=== PATIENT | male | born 1945 | race Caucasian/White ===

== ENCOUNTER 2018-02-03 16:16 | Emergency (ER) | payer MEDICARE ==
[~2018-02-03] VITALS: Ht 190.5 cm; Wt 116.0 kg
[~2018-02-03 16:16] MED LIST: AMLODIPINE10 MG PO; BABY ASPIRIN81 MG PO; CIPRO XR500 MG PO; FISH OIL300 MG OR; HYDROCHLOROT12.5 M1 PO; LANTUS SC; LISINOPRIL10 MG PO; METFORMIN500 MG PO; MULIT-VITAMI OR; MULTIVITAMI1 OR; NOVOLOG MIX100 U/ML SC; SIMVASTATIN5 MG PO; VITAMIN B 650 MG OR; VITAMIN B-121000 MCG SC
[2018-02-03] MEDS ORDERED: DOXYCYC MONO100 M2 PO (16:55)
[2018-02-03] MEDS ORDERED: REGLAN10 MG PO (16:55)
[2018-02-03 17:00] VITALS: BP 119/96
[2018-02-03] MEDS ORDERED: PROTONIX40 MG PO (17:47)
== END 2018-02-03 17:00 | disposition home or self-care (01) ==
LOC: ED 16:16
DX: R06.6 Hiccough (principal); H60.12 Cellulitis of left external ear

== ENCOUNTER 2018-02-06 14:26 | Inpatient (IN) | payer MEDICARE ==
[~2018-02-06] VITALS: Ht 190.5 cm; Wt 113.2 kg
[~2018-02-06 14:26] MED LIST changes: +DOXYCYC MONO100 M2 PO; +PROTONIX40 MG PO; +REGLAN10 MG PO
--- NOTE | 2018-02-06 14:30 | NUR ---
PT IMMEDIATELY WHEELED TO TX AREA D/T CP AND SOB
[2018-02-06] MEDS ORDERED: SIMVASTATIN10 MG PO ×2 (14:47→14:49)
[2018-02-06] MEDS ORDERED: LANTUS100 UNIT/M SC (14:48)
[2018-02-06] MEDS ORDERED: METFORMIN500 MG PO (14:50)
[2018-02-06] MEDS ORDERED: LISINOPRIL20 MG PO (14:50)
[2018-02-06] MEDS ORDERED: BYDUREON2 MG SC (14:52)
[2018-02-06 15:02] LABS: HEMATOCRIT 42.6 % (39.0-50.0); HEMOGLOBIN 14.4 g/dl (14.0-18.0); IMMATURE GRANULOCYTES 0.5 % (0.0-5.0); MEAN CORPUSCULAR HGB CONC 33.8 g/L CALC (32.0-36.0); NEUT# 12.11 thou/uL (1.82-7.42); RED BLOOD COUNT 4.8 mill/uL (4.70-6.10); RED CELL DISTRI WIDTH 12.8 % (11.5-15.5)
[2018-02-06 15:04] LABS: MEAN CELL VOLUME 88.8 fL CALC (80.0-100.0)
[2018-02-06 15:14] LABS: ALKALINE PHOSPHATASE 126 u/l (38-126); BILIRUBIN, TOTAL 0.8 mg/dL (0.0-1.4); BUN 27 mg/dL (8-23); BUN/CREATININE RATIO 35 (12-20 (CALC)); CARBON DIOXIDE 23 mmol/l (22-30); CHLORIDE 97 mmol/l (95-108); CREATININE 0.8 mg/dL (0.7-1.3); GFR > 60 ML/MIN (>=60 (CALC)); GFR FOR AFR.AMER. > 60 ML/MIN (>=60 (CALC)); SGPT/ALT 63 u/l (11-66); SODIUM 135 mmol/l (137-146); TOTAL PROTEIN 7.2 g/dL (6.3-8.2)
[2018-02-06 15:15] LABS: ANION GAP 20 (6-22 (CALC)); POTASSIUM 4.6 mmol/l (3.5-5.1); SGOT/AST 25 u/l (19-48)
--- NOTE | 2018-02-06 15:21 | NUR ---
WC TO BATHROOM. PT AMB IN WITH STEADY GAIT TO GIVE URINE SAMPLE. NO OVERT SIGNS OF SOB
[2018-02-06 15:23] LABS: MYOGLOBIN 38 ng/mL (0 - 121)
--- NOTE | 2018-02-06 15:40 | NUR ---
PT UPDATED ON FINDINGS, STATES THAT HE FEELS PRESSURE TO LEFT UPPER CHEST.
[2018-02-06 15:46] LABS: URINE BILIRUBIN - DIPSTICK NEGATIVE (NEGATIVE); URINE BLOOD DIPSTICK NEGATIVE (NEGATIVE); URINE COLOR YELLOW; URINE GLUCOSE - DIPSTICK 500 mg/dL (NEGATIVE); URINE KETONE TRACE mg/dL (NEGATIVE); URINE LEUK ESTERASE NEGATIVE (NEGATIVE); URINE NITRITE - DIPSTICK NEGATIVE (Negative); URINE PH 5.5 (4.5-8.0); URINE PROTEIN - DIPSTICK TRACE mg/dL (NEG-TRACE); URINE SPECIFIC GRAVITY >=1.030; URINE UROBILINOGEN - DIPSTICK 0.2 E.U./dL (0.2)
[2018-02-06 15:51] LABS: URINE CLARITY CLEAR
--- NOTE | 2018-02-06 17:14 | NUR ---
PT AWARE OF PLAN TO TRANSPORT TO [facility] FOR CT SCAN. LEFT FOOT HEEL UNDRESSED AND REWRAPPED, HEALING WOUND WHICH HE SOAKS DAILY.
--- NOTE | 2018-02-06 18:02 | NUR ---
MEAL TRAY PROVIDED.
--- NOTE | 2018-02-06 19:12 | NUR ---
PT CONTINUES TO WAIT FOR TRANSPORT TO [facility]. AND GRANDDAUGHTER HAVE BEEN AT BEDSIDE, NOW GONE. NO DISTRESS, NO COMPLAINTS.
--- NOTE | 2018-02-06 20:00 | NUR ---
PT LEAVES FOR [facility] AT THIS TIME FOR CTA.
--- NOTE | 2018-02-06 22:00 | NUR ---
TOOK OVER PT CARE. PT STILL NOT BACK FROM [facility].
--- NOTE | 2018-02-06 23:30 | NUR ---
PT BACK FROM [facility] PT PREFERS NOT TO STAY IN THE HOSPITAL. DR WOODS INFORMED.
--- NOTE | 2018-02-07 00:10 | NUR ---
PT AGREED TO ADMIT. CALLED TO GIVE REPORT, CARL WILL CALL BACK SHE JUST GOT AN ADMIT.
[2018-02-07 01:05] VITALS: BP 148/69
--- NOTE | 2018-02-07 01:05 | NUR ---
PT ARRIVED TO FLOOR VIA WHEELCHAIR WITH ER NURSE. PT AMBULATED TO SCALE, THEN TO BED. VITALS OBTAINED BY COURTESY DRIVER. PT ORIENTED TO ROOM AND CALL LIGHT SYSTEM. PT DENIES PAIN. RESP EVEN AND UNLABORED. LUNGS CLEAR BILAT. TELE ON. ABD SOFT, ACTIVE BOWEL SOUNDS. PT REPORTS LAST BM WAS 02/06/18. PEDAL PULSES PALPATED BILAT. PT REPORTS HAVING A DIABETIC ULCER ON HEEL OF LEFT FOOT. PT ALSO REPORTS THAT ER HAD PUT A DRESSING ON EARLIER TODAY. DRESSING REMOVED TO OBTAIN PICTURE. TELFA HAD SMALL AMOUNT OF SEROUS DRAINAGE ON IT. ULCER CLEANED WITH NS. NEW TELFA, GAUZE WRAP, AND ANUJA WRAP APPLIED. PT REQUESTED TO WEAR SOCKS FROM HOME. PT REPORTS SEEING A HADOOP INFRASTRUCTURE ARCHITECT. IV RAC PATENT; NO REDNESS OR EDEMA NOTED. PT ENCOURAGED TO CALL FOR ASSISTANCE TO AMBULATE. FREQUENT ROUNDS MADE. CALL LIGHT WITHIN REACH.
--- NOTE | 2018-02-07 01:05 | NUR ---
Admission Note Report Given to: CHRIS HENRY Transported by: X Wheelchair Stretcher Transported with: X Nurse Transporter X Patent IV O2 X Histology Technician
--- NOTE | 2018-02-07 04:40 | NUR ---
PT SLEEPING WITH EYES CLOSED. RESP EVEN AND UNLABORED. NO DISTRESS NOTED. TELE ON. ASSESSMENT UNCHANGED. CALL LIGHT WITHIN REACH.
[2018-02-07 05:43] VITALS: BP 120/55
[2018-02-07 06:23] LABS: MEAN CELL VOLUME 89.2 fL CALC (80.0-100.0); MEAN CORPUSCULAR HGB 30.1 pG CALC (26.0-32.0); MEAN CORPUSCULAR HGB CONC 33.7 g/L CALC (32.0-36.0); RED BLOOD COUNT 4.09 mill/uL (4.70-6.10); RED CELL DISTRI WIDTH 12.9 % (11.5-15.5)
[2018-02-07 06:25] LABS: HEMATOCRIT 36.5 % (39.0-50.0); HEMOGLOBIN 12.3 g/dl (14.0-18.0)
[2018-02-07 06:45] LABS: ANION GAP 12 (6-22 (CALC)); BUN 14 mg/dL (8-23); BUN/CREATININE RATIO 29 (12-20 (CALC)); CALCULATED LDLCHOLESTEROL 49 mg/dL (62-129 (CALC)); CARBON DIOXIDE 25 mmol/l (22-30); CHLORIDE 107 mmol/l (95-108); CHOLESTEROL HDL RATIO 2.8 (<4.4 (CALC)); CREATININE 0.5 mg/dL (0.7-1.3); GFR > 60 ML/MIN (>=60 (CALC)); GFR FOR AFR.AMER. > 60 ML/MIN (>=60 (CALC)); HDL CHOLESTEROL 35 mg/dL (>=40); POTASSIUM 3.8 mmol/l (3.5-5.1); SODIUM 140 mmol/l (137-146); TOTAL CHOLESTEROL 98 mg/dl (0-199); TOTAL TRIGLYCERIDES 68 mg/dl (30-149); VLDL CHOLESTROL 14 mg/dl (0-38 (CALC))
--- NOTE | 2018-02-07 07:01 | NUR ---
BEDSIDE REPORT RECEIVED BY ALISE. PT IS RESTING IN BED WITH NO S/S OF DISTRESS NOTED. PT DENIES NEEDS AT THIS TIME. CALL LIGHT IN REACH.
[2018-02-07 07:39] VITALS: BP 128/75
--- NOTE | 2018-02-07 08:30 | NUR ---
PT IS SITTING IN CHAIR. ASSESSMENT DONE. TELE IN PLACE. RESPS EVEN AND UNLABORED. PT IS A&O X3. PT DENIES PAIN AT THIS TIME. NS 100ML/HR INFUSING WELL. LEFT FOOT DRESSING IS CDI. SAFETY PRECAUTIONS REINFORCED AND CALL LIGHT IN REACH.
--- NOTE | 2018-02-07 12:17 | NUR ---
MEDICATED PT WITH TORADOL FOR PAIN SEE EMAR. PT IS EATING HIS LUNCH. PT DENIES ANY OTHER NEEDS AT THIS TIME. CALL LIGHT IN REACH.
[2018-02-07 12:42] VITALS: BP 129/67
--- NOTE | 2018-02-07 13:05 | NUR ---
LEFT FOOT DRESSING CHANGE AND PT TOLERATED WELL. PT DENIES ANY OTHER NEEDS AT THIS TIME. CALL LIGHT IN REACH.
[2018-02-07 15:30] VITALS: BP 131/70
--- NOTE | 2018-02-07 15:53 | NUR ---
PT IS SITTING IN THE CHAIR VISITING WITH FAMILY IN ROOM. PT DENIES NEEDS AT THIS TIME. CALL LIGHT IN REACH.
--- NOTE | 2018-02-07 18:55 | NUR ---
RECEIVED CHANGE OF SHIFT REPORT FROM MILAGROS POE. PT ALERT AND ORIENTED X 3 AND SITTING UP AT BEDSIDE TALKING ON THE PHONE. NO APPARENT ACUTE DISTRESS NOTED. WILL CONTINUE TO MONITOR.
[2018-02-07 19:00] VITALS: BP 150/72
--- NOTE | 2018-02-08 | NUR ---
NO ACUTE CHANGES NOTED IN PT'S CONDITION. RESTING COMFORTABLE.
[2018-02-08 00:05] VITALS: BP 156/76
[2018-02-08 04:00] VITALS: BP 148/70
--- NOTE | 2018-02-08 04:59 | NUR ---
PT SLEPT WELL DURING THE NIGHT. NO VOICED COMPLAINTS. NO APPARENT ACUTE CHANGES NOTED IN PT'S CONDITION.
[2018-02-08 05:23] LABS: HEMATOCRIT 35.3 % (39.0-50.0); HEMOGLOBIN 11.8 g/dl (14.0-18.0); IMMATURE GRANULOCYTES 0.5 % (0.0-5.0); MEAN CELL VOLUME 88.7 fL CALC (80.0-100.0); MEAN CORPUSCULAR HGB 29.6 pG CALC (26.0-32.0); MEAN CORPUSCULAR HGB CONC 33.4 g/L CALC (32.0-36.0); NEUT# 5.01 thou/uL (1.82-7.42); RED BLOOD COUNT 3.98 mill/uL (4.70-6.10); RED CELL DISTRI WIDTH 12.8 % (11.5-15.5)
[2018-02-08 05:37] LABS: ANION GAP 10 (6-22 (CALC)); BUN 11 mg/dL (8-23); BUN/CREATININE RATIO 26 (12-20 (CALC)); CARBON DIOXIDE 25 mmol/l (22-30); CHLORIDE 107 mmol/l (95-108); CREATININE 0.4 mg/dL (0.7-1.3); GFR > 60 ML/MIN (>=60 (CALC)); GFR FOR AFR.AMER. > 60 ML/MIN (>=60 (CALC)); MAGNESIUM 1.8 mg/dL (1.6-2.3); POTASSIUM 3.7 mmol/l (3.5-5.1); SODIUM 139 mmol/l (137-146)
--- NOTE | 2018-02-08 06:59 | NUR ---
BEDSIDE REPORT RECEIVED BY MASSIMO. PT IS SLEEPING ON HIS LEFT SIDE WITH NO S/S OF DISTRESS NOTED. CALL LIGHT IN REACH.
[2018-02-08 07:31] VITALS: BP 128/64
--- NOTE | 2018-02-08 08:05 | NUR ---
PT IS SITTING IN THE CHAIR. ASSESSMENT DONE .TELE IN PLACE. RESPS EVEN AND UNLABORED. PT IS A&O X3. PT DENIES PAIN AT THIS TIME. NS 100ML/HR INFUSING WELL. LEFT FOOT DRESSING IS CDI. SAFETY PRECAUTIONS REINFORCED AND CALL LIGHT IN REACH.
[2018-02-08 11:00] VITALS: BP 136/65
--- NOTE | 2018-02-08 12:00 | NUR ---
PT IS SITTING IN CHAIR EATING HIS LUNCH WITH NO S/S OF DISTRESS NOTED. PT DENIES NEEDS AT THIS TIME. TELE IN PLACE AND CALL LIGHT IN REACH.
[2018-02-08] MEDS ORDERED: ZITHROMAX Z-PA250 MG PO (12:09)
--- NOTE | 2018-02-08 13:30 | NUR ---
Discharge instructions given. Patient verbalizes understanding of same. Discharged in stable condition via Wheelchair to Home with staff. All belongings sent with pt.
== END 2018-02-08 13:30 | disposition home or self-care (01) | DRG 194 ==
LOC: ED 14:26 → ED-I 20:06 → ED 23:21 → MS2 23:22
PROVIDERS: Emergency Medicine; Nurse Practitioner Family; ADMIT Internal Medicine; ATTEND Internal Medicine
DX: J15.9 Unspecified bacterial pneumonia (principal); L97.429 Non-pressure chronic ulcer of left heel and midfoot with unspecified severity; E11.621 Type 2 diabetes mellitus with foot ulcer; E11.65 Type 2 diabetes mellitus with hyperglycemia; I10 Essential (primary) hypertension; E78.5 Hyperlipidemia, unspecified; M19.90 Unspecified osteoarthritis, unspecified site; Z87.891 Personal history of nicotine dependence; Z98.84 Bariatric surgery status
CPT/HCPCS: J1650

== ENCOUNTER 2018-06-07 05:09 | Inpatient (IN) | payer MEDICARE ==
[~2018-06-07] VITALS: Ht 190.5 cm; Wt 109.0 kg
[~2018-06-07 05:09] MED LIST changes: +BYDUREON2 MG SC; +LANTUS100 UNIT/M SC; +LISINOPRIL20 MG PO; -MULTIVITAMI1 OR; +MULTIVITAMI1 PO; +SIMVASTATIN10 MG PO; +ZITHROMAX Z-PA250 MG PO
--- NOTE | 2018-06-07 05:15 | NUR ---
RECEIVED VIA EMS TO RM 13.
--- NOTE | 2018-06-07 05:30 | NUR ---
REMOVED URINE SOAKED CLOTHES FROM PT. CLEANED GOWN PLACED ON PT.
[2018-06-07 05:42] LABS: HEMATOCRIT 38.9 % (39.0-50.0); HEMOGLOBIN 12.8 g/dl (14.0-18.0); IMMATURE GRANULOCYTES 1.8 % (0.0-5.0); MEAN CELL VOLUME 85.9 fL CALC (80.0-100.0); MEAN CORPUSCULAR HGB 28.3 pG CALC (26.0-32.0); MEAN CORPUSCULAR HGB CONC 32.9 g/L CALC (32.0-36.0); NEUT# 10.03 thou/uL (1.82-7.42); RED BLOOD COUNT 4.53 mill/uL (4.70-6.10); RED CELL DISTRI WIDTH 13.1 % (11.5-15.5)
[2018-06-07 05:47] LABS: ALBUMIN 3.2 g/dL (3.2-5.0); ALKALINE PHOSPHATASE 106 u/l (38-126); ANION GAP 18 (6-22 (CALC)); BILIRUBIN, TOTAL 1.5 mg/dL (0.0-1.4); BUN 45 mg/dL (8-23); BUN/CREATININE RATIO 47 (12-20 (CALC)); CARBON DIOXIDE 22 mmol/l (22-30); CHLORIDE 98 mmol/l (95-108); GFR > 60 ML/MIN (>=60 (CALC)); GFR FOR AFR.AMER. > 60 ML/MIN (>=60 (CALC)); POTASSIUM 3.9 mmol/l (3.5-5.1); SGOT/AST 24 u/l (19-48); SODIUM 135 mmol/l (137-146); TOTAL PROTEIN 6.1 g/dL (6.3-8.2)
--- NOTE | 2018-06-07 05:48 | NUR ---
PORT XRAY AT BEDSIDE.
--- NOTE | 2018-06-07 05:50 | NUR ---
BCX2 HAVE BEEN DRAWN.
[2018-06-07 06:02] LABS: MYOGLOBIN 578 ng/mL (0 - 121)
--- NOTE | 2018-06-07 06:11 | NUR ---
PT TO XRAY.
--- NOTE | 2018-06-07 06:26 | NUR ---
RETURNED FROM [facility].
--- NOTE | 2018-06-07 06:32 | NUR ---
ENCOURAGED PT TO PROVIDE URINE.
--- NOTE | 2018-06-07 06:40 | NUR ---
PT STILL HAS NOT PROVIDED URINE.
--- NOTE | 2018-06-07 06:48 | NUR ---
REPORT TO CHRIS LINARES.
--- NOTE | 2018-06-07 07:53 | NUR ---
PT PROVIDED ZITHROMAX ABX ORDERED. PT AWARE OF PENDING ADMISSION, WAITS FOR DISPOSITION TO FLOOR. HAS BEEN AT BEDSIDE AND GONE HOME NOW.
--- NOTE | 2018-06-07 08:44 | NUR ---
PT STRAIGHT CATHED FOR URINE SINCE HE HAS NOT BEEN ABLE TO VOID YET, 300 ML CLEAR OLENA URINE RETURNED.
[2018-06-07 09:00] VITALS: BP 119/58
[2018-06-07 09:00] LABS: URINE BLOOD DIPSTICK TRACE-INTACT (NEGATIVE); URINE COLOR YELLOW; URINE GLUCOSE - DIPSTICK 250 mg/dL (NEGATIVE); URINE KETONE 15 mg/dL (NEGATIVE); URINE LEUK ESTERASE NEGATIVE (NEGATIVE); URINE NITRITE - DIPSTICK NEGATIVE (Negative); URINE PROTEIN - DIPSTICK 30 mg/dL (NEG-TRACE); URINE SPECIFIC GRAVITY 1.025
[2018-06-07 09:04] LABS: BARBITURATES NEGATIVE (NEGATIVE); COCAINE NEGATIVE (NEGATIVE); METHADONE NEGATIVE (NEGATIVE); OXCYCODONE POSITIVE (NEGATIVE); TETRAHYDROCANNABIONOL NEGATIVE (NEGATIVE); TRICYLIC ANTIDEPRESSANTS NEGATIVE (NEGATIVE)
[2018-06-07 09:08] LABS: URINE BILIRUBIN - DIPSTICK NEGATIVE (NEGATIVE)
[2018-06-07 09:10] LABS: URINE AMORPH SEDIMENT MODERATE hpf (NONE-FER)
--- NOTE | 2018-06-07 09:10 | NUR ---
CHRISTIANO FROM [facility] CALLED AND STATES THAT HE HAS A TOTAL CONTACT CAST ON THAT SHOULD BE CUT OFF TODAY, THEY ARE CONCERNED ABOUT IT STAYING ON UNTIL HE GETS D/C'D AND CAN RETURN TO THEM FOR FURTHER TREAMTENT. WILL NOTIFY ON AM ROUNDS.
[2018-06-07 09:11] LABS: URINE RENAL EPITHELIAL CELLS FEW hpf
[2018-06-07 09:12] LABS: URINE CASTS FEW lpf (NONE-RARE)
[2018-06-07 09:16] LABS: URINE RBC 0-2 RBC/hpf (0-5); URINE WBC 0-2 WBC/hpf (0-5)
--- NOTE | 2018-06-07 09:18 | NUR ---
male pt received to ICU bed 3 (med/surg overflow) via stretcher accompanied by Marcela Linares RN in stable condition; unsteady assisted gait per staff; weight obtained; admission assessment completed at this time; c/c of frequent falls and weakness; alert and oriented; admits to pain to bilat feet and hips rating 6/10; repositioned; no n/v/sob noted; resp even and unlabored; lungs clear with coarseness noted to right base; skin color wnl; ra; hr reg; strong right pedal pulse; trace edema noted to rle; abd soft with bs present; no bm noted per keno writer; no urine to inspect at this time; urinal placed at bedside; #18 flushed and patent to lfa; no redness or edema noted at site; bilat elbows noted with abrasions/ right knee abrasion noted; pics to be taken; cast and brace noted to lle; plan of care/ meds explained; call light within reach; will continue to monitor
--- NOTE | 2018-06-07 09:28 | NUR ---
REPORT CALLED TO TUYET YAN TAKEN TO ICU-3 M/S OVERFLOW.
--- NOTE | 2018-06-07 10:07 | NUR ---
awake in bed; no apparent distress noted; deny needs; call light within reach; will continue to monitor
--- NOTE | 2018-06-07 10:57 | NUR ---
Brown notified per this unit of wound care Maggie concerns regarding total contact cast and need for removal today; no orders received; per MD, cast will not be removed
--- NOTE | 2018-06-07 11:10 | NUR ---
Dr Saucedo present at bedside to assess pt and discuss plan of care
[2018-06-07 12:15] VITALS: BP 125/57
--- NOTE | 2018-06-07 14:07 | NUR ---
pt resting in bed with eyes closed; no apparent distress noted; iv intact; sr on monitor; call light within reach; will continue to monitor
--- NOTE | 2018-06-07 15:18 | NUR ---
pt transported to CT scan via wc in stable condition
--- NOTE | 2018-06-07 15:18 | NUR ---
pt returned from ct scan in stable condition; assist to bsc; monitoring attachments explained and reconnected
--- NOTE | 2018-06-07 16:15 | NUR ---
resting in bed with eyes closed; no distress noted resp even and unlabored; o2 per nc; iv intact; sr on monitor; call light within reach; will continue to monitor
[2018-06-07 16:20] VITALS: BP 138/61
--- NOTE | 2018-06-07 18:14 | NUR ---
awake in bed; offers no complaints; no distress noted; pt to transfer to [facility]; iv intact; o2 per nc; sr on monitor; bed in lowest position; call light within reach
--- NOTE | 2018-06-07 18:44 | NUR ---
report given to Johaan Weldon LPN
[2018-06-07 19:20] VITALS: BP 148/78
--- NOTE | 2018-06-07 20:06 | NUR ---
PT ARRIVED ON UNIT AT 191 VIA WHEELCHAIR. PT ALERT AND ORIENT . ABLE TO VOICE NEEDS.NO DISTRESS NOTED. LUNGS DIMINISHED IN ALL BASES. NON PRODUCTIVE COUGH NOTED. PT HAS ABRASIONS R ELBOW AND R KNEE. CAST TO LEFT. DRAINAGE NOTED. PT EDUCATED TO USE CALL LIGHT FOR HELP. BED IN LOW POSITON.WILL CONTNUE TO MONITOR.
--- NOTE | 2018-06-07 23:39 | NUR ---
pt resting in bed with eyes closed. no pain noted. bed in lowest postion. cane/call light within reach. will monitor.
[2018-06-08 04:05] VITALS: BP 122/62
[2018-06-08 05:52] LABS: HEMATOCRIT 37.5 % (39.0-50.0); HEMOGLOBIN 12.2 g/dl (14.0-18.0); IMMATURE GRANULOCYTES 0.8 % (0.0-5.0); MEAN CELL VOLUME 86.6 fL CALC (80.0-100.0); MEAN CORPUSCULAR HGB 28.2 pG CALC (26.0-32.0); MEAN CORPUSCULAR HGB CONC 32.5 g/L CALC (32.0-36.0); NEUT# 10.24 thou/uL (1.82-7.42); RED BLOOD COUNT 4.33 mill/uL (4.70-6.10); RED CELL DISTRI WIDTH 13.2 % (11.5-15.5)
[2018-06-08 06:07] LABS: ALBUMIN 2.9 g/dL (3.2-5.0); ALKALINE PHOSPHATASE 100 u/l (38-126); ANION GAP 16 (6-22 (CALC)); BILIRUBIN, TOTAL 0.6 mg/dL (0.0-1.4); BUN 33 mg/dL (8-23); BUN/CREATININE RATIO 50 (12-20 (CALC)); CARBON DIOXIDE 24 mmol/l (22-30); CHLORIDE 99 mmol/l (95-108); CREATININE 0.7 mg/dL (0.7-1.3); GFR > 60 ML/MIN (>=60 (CALC)); GFR FOR AFR.AMER. > 60 ML/MIN (>=60 (CALC)); MAGNESIUM 1.8 mg/dL (1.6-2.3); POTASSIUM 4.4 mmol/l (3.5-5.1); SGOT/AST 23 u/l (19-48); SODIUM 135 mmol/l (137-146); TOTAL PROTEIN 5.8 g/dL (6.3-8.2)
[2018-06-08 07:46] VITALS: BP 140/70
--- NOTE | 2018-06-08 07:47 | NUR ---
REPORT RECEIVED FROM EDMOND RN; PT SITTING UP IN BED EATING BREAKFAST; PT A/OX4; AM MEDS ADMINSTERED; PT STATED PAIN IN HIP 08/25; ABRASION NOTED TO R. KNEE & BILAT ELBOWS;L FOOT IN A CAST; IV PATENT; SITE APPEARS HELATHY; URINAL PROVIDE TO PT; PT EDUCATED TO CALL FOR ASSISTANCE; POC DISCUSSED; CALL ALFRED IN REACH; WILL CONTINUE TO MONITOR.
--- NOTE | 2018-06-08 11:28 | NUR ---
PT SITTING UP IN RECLINER EATING LUNCH, AWAITING TO SEE DR DANIELS;
--- NOTE | 2018-06-08 11:38 | NUR ---
DR DANIELS AT BEDSIDE TO DISCUSS POC.
--- NOTE | 2018-06-08 14:49 | NUR ---
pt took a shower; lotion pts leg; attach leg brace to left leg; pt toelrated well; voided moderated amt of clear, yellow urine in the toilet; assisted pt back to bed; call light and urinal in reach.
[2018-06-08 15:55] VITALS: BP 131/61
--- NOTE | 2018-06-08 17:21 | NUR ---
PT SITTING UP IN RECLINER WATCHING TV; PT STATED HE HAD COMPANY, WAS NOT ABLE TO TAKE A NAP; VOICE NO OTHER CONCERNS; CALL ALFRED AND URINAL IN REACH.
[2018-06-08 18:59] VITALS: BP 141/67
--- NOTE | 2018-06-08 21:00 | NUR ---
Dr lopez called for Bs of 445. gave order to give 12units of insulin. pt educated on side effects of solumedrol. pt voiced understanding. lungs cta. no other concerns. will monitor.
--- NOTE | 2018-06-09 00:14 | NUR ---
PT RESTING IN BED WITH EYES CLOSED. NO PAIN OR DISTRESS NOTED. BED IN LOWEST POSITOINN. CALL LIGHT WITHIN REACH. WILL CONTINUE TO MONITOR.
[2018-06-09 03:56] VITALS: BP 126/70
[2018-06-09 05:47] LABS: HEMOGLOBIN 11.5 g/dl (14.0-18.0); IMMATURE GRANULOCYTES 1.4 % (0.0-5.0); MEAN CELL VOLUME 86.6 fL CALC (80.0-100.0); MEAN CORPUSCULAR HGB 28.5 pG CALC (26.0-32.0); MEAN CORPUSCULAR HGB CONC 32.9 g/L CALC (32.0-36.0); NEUT# 7.88 thou/uL (1.82-7.42); RED BLOOD COUNT 4.04 mill/uL (4.70-6.10); RED CELL DISTRI WIDTH 13.2 % (11.5-15.5)
[2018-06-09 05:58] LABS: ALBUMIN 2.8 g/dL (3.2-5.0); ALKALINE PHOSPHATASE 92 u/l (38-126); ANION GAP 15 (6-22 (CALC)); BILIRUBIN, TOTAL 0.4 mg/dL (0.0-1.4); BUN 25 mg/dL (8-23); BUN/CREATININE RATIO 41 (12-20 (CALC)); CARBON DIOXIDE 25 mmol/l (22-30); CHLORIDE 99 mmol/l (95-108); CREATININE 0.6 mg/dL (0.7-1.3); GFR > 60 ML/MIN (>=60 (CALC)); GFR FOR AFR.AMER. > 60 ML/MIN (>=60 (CALC)); MAGNESIUM 1.9 mg/dL (1.6-2.3); SGOT/AST 14 u/l (19-48); SODIUM 135 mmol/l (137-146); TOTAL PROTEIN 5.7 g/dL (6.3-8.2)
[2018-06-09 07:34] VITALS: BP 141/65
--- NOTE | 2018-06-09 07:34 | NUR ---
PT SITTING IN RECLINER AT BEDSIDE, NO SIGNS OF DISTRESS NOTED, RESP EVEN AND UNLABORED. PT EATING HIS BREAKFAST. STATES HE FEELS MUCH BETTER AND WOULD LIKE TO GO HOME TODAY. PT IS 95% ON RA, DENIES WEAKNESS. PT HAS A TOTAL COMPACT CAST IN BOOT, DUE TO BE REMOVED ON SUN DR APPOINTMENT IN [place], PT STATE HE HAS AN "ULCER THAT WON'T HEAL" INITIATED IV ZITHROMAX INFUSION, ASSESSMENT COMPLETED AT THIS TIME. PT VOICES NO NEEDS OR COMPLAINTS AT THIS TIME. CALL LIGHT IN REACH, CONTINUE TO MONITOR.
--- NOTE | 2018-06-09 11:31 | NUR ---
ACCUCHECK TOO HIGH FOR GLUCOMOTER, STAT GLUCOSE ORDERED.
--- NOTE | 2018-06-09 12:19 | NUR ---
NOTIFIED OF CRITICAL GLUCOSE 551.
--- NOTE | 2018-06-09 12:48 | NUR ---
DISCUSSED INSULIN COVERAGE PT IN AGREEMENT. MEDICATED PER MAR, PT REQUESTING BANDAIDS FOR ABRASIONS TO ELBOWS BILAT AND R KNEE, APPLIED PER REQUEST. CALL LIGHT IN REACH,CONTINUE TO MONITOR.
[2018-06-09 16:25] VITALS: BP 131/69
--- NOTE | 2018-06-09 19:00 | NUR ---
BEDSIDE REPORT RECEIVED FROM CHRIS ZARATE. PT SITTING UP IN RECLINER WATCHING TV; ALERT AND ORIENTED. C/O MODERATE PAIN TO RIGHT LOWER BACK DESCRIBED AT SCIATIC PAIN. RESPIRATIONS EVEN AND UNLABORED ON ROOM AIR. PLAN OF CARE DISCUSSED. PT ENCOURAGED TO VERBALIZE CONCERNS. STATES UNDERSTANDING. SAFETY MEASURES IN PLACE. CALL LIGHT WITHIN REACH.
[2018-06-09 20:13] VITALS: BP 136/68
[2018-06-09 21:13] LABS: ANION GAP 15 (6-22 (CALC)); BUN 25 mg/dL (8-23); BUN/CREATININE RATIO 34 (12-20 (CALC)); CARBON DIOXIDE 27 mmol/l (22-30); CHLORIDE 96 mmol/l (95-108); CREATININE 0.7 mg/dL (0.7-1.3); GFR > 60 ML/MIN (>=60 (CALC)); GFR FOR AFR.AMER. > 60 ML/MIN (>=60 (CALC)); POTASSIUM 5.1 mmol/l (3.5-5.1); SODIUM 131 mmol/l (137-146)
--- NOTE | 2018-06-09 21:52 | NUR ---
STAT BLOOD GLUCOSE RESULT OF 520. DR. DANIELS NOTIFED. NEW ORDERS TO INCREASE PT TO HIGH DOSE SLIDING SCALE AND GIVEN ADDITIONAL 20 UNITS OF NOVOLOG. INSULIN ADMINISTERED WITH SNACK.
--- NOTE | 2018-06-10 00:24 | NUR ---
PT ASLEEP AT THIS TIME WITH NO SIGNS OF DISTRESS. RESPIRATIONS EVEN AND UNLABORED ON ROOM AIR. NO SIGNS OF HYPER OR HYPOGLYCEMIA. IV SITE APPEARS HEALTHY AND FLUSHES. PT REPOSITIONED INTO BED. SAFETY MEASURES IN PLACE. CALL LIGHT WITHIN REACH.
[2018-06-10 04:48] VITALS: BP 115/63
--- NOTE | 2018-06-10 04:55 | NUR ---
NO ACUTE CHANGES IN CONDITION THROUGHOUT THE NIGHT. AWAKENS SPONTANEOUSLY FOR VS AND LAB WORK. NO REQUESTS OR CONCERNS AT THIS TIME. SAFETY MEASURES IN PLACE. CALL LIGHT WITHIN REACH.
[2018-06-10 04:56] LABS: HEMATOCRIT 35.1 % (39.0-50.0); HEMOGLOBIN 12.3 g/dl (14.0-18.0); IMMATURE GRANULOCYTES 2.2 % (0.0-5.0); MEAN CELL VOLUME 86.7 fL CALC (80.0-100.0); MEAN CORPUSCULAR HGB 30.4 pG CALC (26.0-32.0); NEUT# 8.56 thou/uL (1.82-7.42); RED BLOOD COUNT 4.05 mill/uL (4.70-6.10); RED CELL DISTRI WIDTH 13.2 % (11.5-15.5)
[2018-06-10 05:22] LABS: ALBUMIN 2.8 g/dL (3.2-5.0); ALKALINE PHOSPHATASE 88 u/l (38-126); BILIRUBIN, TOTAL 0.3 mg/dL (0.0-1.4); BUN 27 mg/dL (8-23); BUN/CREATININE RATIO 35 (12-20 (CALC)); CARBON DIOXIDE 28 mmol/l (22-30); CHLORIDE 99 mmol/l (95-108); CREATININE 0.8 mg/dL (0.7-1.3); GFR > 60 ML/MIN (>=60 (CALC)); GFR FOR AFR.AMER. > 60 ML/MIN (>=60 (CALC)); MAGNESIUM 1.9 mg/dL (1.6-2.3); SGOT/AST 12 u/l (19-48); SODIUM 134 mmol/l (137-146); TOTAL PROTEIN 5.6 g/dL (6.3-8.2)
[2018-06-10 05:23] LABS: ANION GAP 12 (6-22 (CALC)); POTASSIUM 5.2 mmol/l (3.5-5.1)
[2018-06-10 07:35] VITALS: BP 137/67
[2018-06-10 07:40] VITALS: BP 137/67
--- NOTE | 2018-06-10 07:50 | NUR ---
PT SITTING UP IN RECLINER; A/OX3; PT STATED HE'S EAGER TO GOING HOME; PT REPORTS NO PAIN, VOICE NO CONCERNS; MORNING MEDS ADMINISTERED; VITALS STABLE; CALL ALFRED IN REACH; POC DISCUSSED;
--- NOTE | 2018-06-10 09:31 | NUR ---
BEHAVIORAL HEALTH ASSISTANT IN ROOM ASSISTING PT WITH A SHOWER.
--- NOTE | 2018-06-10 10:54 | NUR ---
DR DANIELS AT BEDSIDE TO DISCUSS POC
--- NOTE | 2018-06-10 11:05 | NUR ---
PT SITTING UP IN RECLINER, LEGS ELEVATED; WAITING TO BE DC; RESP EVEN AND UNLABORED; CALL ALFRED IN REACH.
[2018-06-10] MEDS ORDERED: DOXYCYCL HYC100 MG PO (11:38)
--- NOTE | 2018-06-10 12:28 | NUR ---
D/C INSTRUCTIONS GIVEN TO PT; PT TO FORM BLOCK MAKER PRESCRIPTION DOXYCYCLINE HYCLATE T PHARMACY; MK APPT TO SEE PCP AND DR GUTIÉRREZ; PT VERBALIZE UNDERSTANDING; PT WAITING FOR HIS RIDE.
--- NOTE | 2018-06-10 12:55 | NUR ---
Discharge instructions given. Patient verbalizes understanding of same. Discharged in stable condition via Wheelchair to Home with spouse. All belongings sent with pt.
== END 2018-06-10 12:55 | disposition home or self-care (01) | DRG 178 ==
LOC: ED 05:09 → ED-I 05:16 → ED 05:16 → ED-I 06:00 → ED 06:50 → ICU 06:51 → MS2 06:51 → ICU 06:52 → MS2 19:23
PROVIDERS: Family Medicine; Internal Medicine Nephrology; ADMIT Internal Medicine; ATTEND Internal Medicine
DX: J15.5 Pneumonia due to Escherichia coli (principal); L97.429 Non-pressure chronic ulcer of left heel and midfoot with unspecified severity; E11.621 Type 2 diabetes mellitus with foot ulcer; T38.0X5A Adverse effect of glucocorticoids and synthetic analogues, initial encounter; E11.65 Type 2 diabetes mellitus with hyperglycemia; I10 Essential (primary) hypertension; K21.9 Gastro-esophageal reflux disease without esophagitis; E78.5 Hyperlipidemia, unspecified; L08.9 Local infection of the skin and subcutaneous tissue, unspecified; R80.9 Proteinuria, unspecified; Z87.891 Personal history of nicotine dependence; Z96.652 Presence of left artificial knee joint; Z79.4 Long term (current) use of insulin
CPT/HCPCS: J1650

== ENCOUNTER 2019-02-02 15:27 | Emergency (ER) | payer MEDICARE ==
[~2019-02-02] VITALS: Ht 190.5 cm; Wt 100.0 kg
[~2019-02-02 15:27] MED LIST changes: +DOXYCYCL HYC100 MG PO
[2019-02-02] MEDS ORDERED: PERCOCET PO (15:59)
[2019-02-02 17:23] VITALS: BP 127/60
== END 2019-02-02 17:23 | disposition home or self-care (01) ==
LOC: ED 15:27
DX: S00.03XA Contusion of scalp, initial encounter (principal); S60.212A Contusion of left wrist, initial encounter; S80.211A Abrasion, right knee, initial encounter; E11.9 Type 2 diabetes mellitus without complications; I10 Essential (primary) hypertension; W01.198A Fall on same level from slipping, tripping and stumbling with subsequent striking against other object, initial encounter; Y92.007 Garden or yard of unspecified non-institutional (private) residence as the place of occurrence of the external cause; Z96.651 Presence of right artificial knee joint

== ENCOUNTER 2019-10-16 10:22 | Inpatient (IN) | payer MEDICARE ==
[~2019-10-16] VITALS: Ht 190.5 cm; Wt 106.0 kg
[~2019-10-16 10:22] MED LIST changes: +PERCOCET PO
--- NOTE | 2019-10-16 10:22 | NUR ---
PT TO ROOM VIA EMS STRETCHER.
--- NOTE | 2019-10-16 10:30 | NUR ---
PT TO C/O LEFT HIP PAIN AFTER TRIP AND FALL THIS AM. SHORTENING NOTED TO LEFT LEG. PEDAL PULSES STRONG AND PALPABLE. ABRASIONS NOTED TO LEFT KNEE. PT REPORTS 7/10 PAIN AT THIS TIME. MD NOTIFIED.
[2019-10-16 10:49] LABS: HEMATOCRIT 42.1 % (39.0-50.0); HEMOGLOBIN 13.9 g/dl (14.0-18.0); IMMATURE GRANULOCYTES 0.7 % (0.0-5.0); MEAN CORPUSCULAR HGB 28.7 pG CALC (26.0-32.0); NEUT# 11.47 thou/uL (1.82-7.42); RED BLOOD COUNT 4.84 mill/uL (4.70-6.10); RED CELL DISTRI WIDTH 14.2 % (11.5-15.5)
--- NOTE | 2019-10-16 10:55 | NUR ---
PT MEDICATED ORDERED FOR 7/10 PAIN TO LEFT HIP.
[2019-10-16 11:27] LABS: PROTHROMBIN TIME 10.7 SECONDS (9.0-12.5)
[2019-10-16 11:33] LABS: ALBUMIN 3.7 g/dL (3.2-5.0); ALKALINE PHOSPHATASE 103 u/l (38-126); ANION GAP 15 (6-22 (CALC)); BUN 24 mg/dL (8-23); BUN/CREATININE RATIO 30 (12-20 (CALC)); CARBON DIOXIDE 27 mmol/l (22-30); CHLORIDE 96 mmol/l (95-108); CREATININE 0.8 mg/dL (0.7-1.3); ETHYL ALCOHOL 0 mg/dl (0-30); GFR > 60 ML/MIN (>=60 (CALC)); GFR FOR AFR.AMER. > 60 ML/MIN (>=60 (CALC)); POTASSIUM 4.4 mmol/l (3.5-5.1); SODIUM 134 mmol/l (137-146); TOTAL PROTEIN 6.6 g/dL (6.3-8.2)
[2019-10-16 11:36] LABS: SGOT/AST 24 u/l (19-48)
--- NOTE | 2019-10-16 11:53 | NUR ---
PT RETURNED FROM CT SCAN AND REPORTS INCREASE OF PAIN01/25. MD NOTIFIED, AWAITING NEW ORDERS.
--- NOTE | 2019-10-16 12:05 | NUR ---
PT MEDICATED FOR 8/10 PAIN ORDERED. PT AWARE OF PENDING RESULTS AND WAIT TIME. CALL TIMA GALDAMEZ.
--- NOTE | 2019-10-16 12:17 | NUR ---
PT UPDATED ON NEED FOR CT SCAN OF THE PELVIS.
[2019-10-16] MEDS ORDERED: OXYCOD-APAP1 TA1 PO (12:39)
[2019-10-16] MEDS ORDERED: ELIQUIS5 MG PO (12:45)
[2019-10-16] MEDS ORDERED: METOPROL TAR25 MG PO (12:45)
--- NOTE | 2019-10-16 12:50 | NUR ---
PT MEDICATED FOR INCREASED PAIN.
--- NOTE | 2019-10-16 13:15 | NUR ---
PT RESTING COMFORTABLY IN STRETCHER SPO2 92% ON ROOM AIR. 2L NC PLACED TO PT.
--- NOTE | 2019-10-16 13:30 | NUR ---
PT PAIN 3/10 AND IS RESTING COMFORTABLY AT THIS TIME. CALL ALFRED WITHIN REACH, WILL CONTINUE TO MONTIOR.
--- NOTE | 2019-10-16 14:00 | NUR ---
PT RESTING IN STRETCHER IN NAD. PT AWARE OF PLAN FOR ADMISSION AND WAIT TIME. CALL TIMA GALDAMEZ.
--- NOTE | 2019-10-16 14:35 | NUR ---
COVID NASOPHARENGEAL SWAB COMPLETED TO LEFT NARES. PT TOLERATED WELL. PT HEART RATE 120'S AFIB AT THIS TIME.
--- NOTE | 2019-10-16 14:40 | NUR ---
CALL PLACED TO DR NEWMAN AND INFOMRIMANI OF ELEVATED HEART RATE, 124 AND BP 122/73. HE WOULD LIKE TO GIVE 25 MG OF METOPROLOL NOW.
--- NOTE | 2019-10-16 14:45 | NUR ---
ABRASION TO LEFT KNEE CLEANED AND DRESSING PLACED. PT AWARE OF PLAN FOR ADMISSION.
--- NOTE | 2019-10-16 15:10 | NUR ---
CALL PLACED TO MS, NURSE WILL CALL BACK FOR REPORT.
--- NOTE | 2019-10-16 15:27 | NUR ---
REPORT CALLED TO MILAGROS BULL.
--- NOTE | 2019-10-16 15:40 | NUR ---
Admission Note Report Given to: MILAGROS BULL Transported by: Wheelchair X Stretcher Transported with: X Nurse Transporter X Patent IV X O2 X Swiss Machinist Location: ICU X MS2 PT TO ROOM 280 IN STABLE CONDITION. BEDSIDE REPORTS GIVEN TO MILAGROS BULL.
--- NOTE | 2019-10-16 16:00 | NUR ---
PT TRANSPORTED TO ROOM 280 FROM ER. REPORT RECEIVED FROM OLYA SIMS. PT ORIENTED TO CALL BUTTON, LIGHT, TV REMOTE, BED CONTROL. PT IS ALERT AND ORIENTED X 4. ABLE TO MAKE NEEDS KNOWN. AVIONICS ENGINEER WILL CONTINUE TO MONITOR
[2019-10-16 16:15] VITALS: BP 113/65
[2019-10-16 18:49] VITALS: BP 96/58
--- NOTE | 2019-10-16 20:15 | NUR ---
PT AWAKE RESTING IN BED. RESP EVEN AND UNLABORED. ALERT AND ORIENTED X3. LUNGS CLEAR BILAT. ABD SOFT WITH BOWEL SOUNDS PRESENT. NO LOWER EXT EDEMA NOTED. PEDAL PULSES PALPATED BILAT. DRESSING ON LEFT KNEE IS CLEAN AND DRY. IV SITE PATENT IN RT A.C. WITH NSS AT 100CC/HR. TELE AFIB HR 90'S. PT OFFERS NO COMPLAINTS AT THIS TIME. FREQUENT ROUNDS MADE. CALL ALFRED WITHIN REACH.
--- NOTE | 2019-10-16 20:53 | NUR ---
ATE 100% OF EVENING SNACK. MEDICATED WITH LORTAB 5/325MG P.O FOR LEFT HIP DISCOMFOR RATED AT A 3 ON PAIN SCALE. CALL ALFRED WITHIN REACH.
[2019-10-16 22:08] VITALS: BP 105/60
--- NOTE | 2019-10-16 22:19 | NUR ---
PT REQUESTING A SLEEPING PILL. MEDICATED WITH SONATA 5MG P.O FOR SLEEP. IV SITE PATENT. CALL ALFRED WITHIN REACH.
[2019-10-16 23:44] VITALS: BP 102/60
[2019-10-17 04:11] VITALS: BP 110/69
--- NOTE | 2019-10-17 04:31 | NUR ---
PT RESTING IN BED WITH EYES CLOSED. RESP EVEN AND UNLABORED. TELE AFIB HR CONTROLLED 70-80'S. IV SITE PATENT NSS AT 100CC/HR. PT DOES REPOSITION HIMSELF. SCD'S ARE ON BILAT LOWER EXT. FREQUENT ROUNDS MADE. CALL ALFRED WITHIN REACH.
--- NOTE | 2019-10-17 06:10 | NUR ---
PT MEDICATED WITH MORPHINE SULFATE 2MG IV FOR LEFT HIP PAIN. IV SITE PATENT. RESP EVEN AND UNLABORED. CALL ALFRED WITHIN REACH.
--- NOTE | 2019-10-17 07:00 | NUR ---
PLAN OF CARE RECEIVED FROM MILAGROS MARIE. PT SITTING UP IN BED; ALERT AND OREINTED. DENIES PAIN CURRENTLY, BUT DOES REPORT SEVERE PAIN WITH MOVEMENT. RESPIRATIONS EVEN AND UNLABORED ON ROOM AIR. PLEASANT AND TALKATIVE. LUNGS ARE CLEAR; HR IRREGULAR. MILD ABRASION TO LEFT ELBOW AND DRESSING TO ABRASION ON LEFT KNEE REPLACED; PHOTO TAKEN AND PLACED IN CHART; SEROSANGUINOUS DRAINAGE IN SMALL AMOUNTS. PLAN OF CARE REVIEWED. PT ENCOURAGED TO VERBALIZE CONCERNS. STATES UNDERSTANDING. SAFETY MEASURES IN PLACE. CALL LIGHT WITHIN REACH.
[2019-10-17 07:39] VITALS: BP 112/62
--- NOTE | 2019-10-17 09:48 | NUR ---
LORTAB GIVEN WITH AM MEDS FOR 5/10 LEFT HIP PAIN. BANQUET STEWARD REPORTS ELEVATED HEART RATE IN THE 110S-120S; SCHEDULED METOPROLOL ADMINISTERED. PT ENCOURAGED REPOSITIONING; MILD REDNESS AND DISCOMFORT TO COCCYX. IV FLUIDS INFUSING WITHOUT DIFFICULTY; IV SITE APPEARS HEALTHY.
[2019-10-17 11:00] VITALS: BP 118/69
[2019-10-17 15:30] VITALS: BP 120/67
--- NOTE | 2019-10-17 15:54 | NUR ---
PT UP TO BEDSIDE CHAIR WITH PT; ALERT AND ORIENTED. PAIN MANAGED WITH MORPHINE AND LORTAB. CALL LIGHT WITHIN REACH.
--- NOTE | 2019-10-17 16:45 | NUR ---
PT ASSISTED BACK INTO BED WITH MAX ASSIST; SEVERE PAIN WITH MOVEMENT. SITTING UP ON EDGE OF BED. LORTAB GIVEN AND NEW ORDER RECEIVED FOR FLEXERIL. PT C/O MUSCLE SPASMS IN GROIN. FLEXERIL GIVEN NOW AND ASSITED INTO SEMI FOWLERS POSITION.
--- NOTE | 2019-10-17 18:37 | NUR ---
PT AGAIN SITTING UP ON EDGE OF BED; STATES IT IS MORE COMFORTABLE WITH HIS SPASMS. REQUESTING SMALL CHAIR TO BE AT BEDSIDE; WANTS TO ATTEMPT TO SIT UP FOR COMFORT. MORPHINE GIVEN PER REQUEST AT THIS TIME.
[2019-10-17 19:27] VITALS: BP 127/71
--- NOTE | 2019-10-17 20:30 | NUR ---
PT RESTING IN BED, ALERT AND ORIENTED. RESPIRATIONS EVEN AND UNLABORED ON RA. LUNGS SOUND CLEAR/DIMINISHED. PEDAL PULSES WEAK. PT REPORTS HAVING PAIN OF A 8/10 PT MEDICATED PER EMAR ORDERS. SAFETY PRECAUTIONS IN PLACE. WILL CONTINUE TO MONITOR.
[2019-10-17 23:45] VITALS: BP 117/71
--- NOTE | 2019-10-18 01:16 | NUR ---
PT RESTING IN BED. NO S/S OF DISITRESS AT THIS TIME. SAFETY PRECAUTIONS IN PLACE. WILL CONTINUE TO MONITOR.
--- NOTE | 2019-10-18 03:52 | NUR ---
PT RESTING IN BED, NO S/S OF DISTRESS AT THIS TIME. TELE IN PLACE. WILL CONTINUE TO MONITOR.
[2019-10-18 04:37] VITALS: BP 111/67
[2019-10-18 08:00] VITALS: BP 110/71
[2019-10-18 10:50] VITALS: BP 93/61
--- NOTE | 2019-10-18 12:00 | NUR ---
PT STATED "I'D LIKE TO PUT ON SOME OXYGEN IF I QUALIFY FOR IT." PT DENIES SOB, NO DISTRESS NOTED. BREATH SOUNDS CLEAR. PT PLACED ON PULSE OX FOR 30 MINUTES. O2 SAT 96% -98%. PT CONTINUED TO DENY SHORTNESS OF BREATH OR DIFFICULTY BREATHING. PRACTITIONER NOTIFIED. PATIENT REMAINS ON ROOM AIR. WILL CONTINUE TO MONITOR.
[2019-10-18 15:05] VITALS: BP 114/67
--- NOTE | 2019-10-18 18:22 | NUR ---
PT DENIES DIFFICULTY BREATHING OR SOB; NO DISTRESS NOTED. PT C/O CONSTIPATION. MIRILAX GIVEN ORDERED. PT ATTEMPTED TO MOVE BOWELS X3. FLATULENCE NOTED. NO BM THIS SHIFT.
[2019-10-18 19:00] VITALS: BP 122/71
--- NOTE | 2019-10-18 20:10 | NUR ---
PT RESTING IN CHAIR AT BEDSIDE. NEW IV STARTED #20 LFA, PT TOLERATED WELL. RESPIRATIONS EVEN AND UNLABORED ON RA. LUNGS SOUND CLEAR. PEDAL PULSES WEAK. PT REPORTS PAIN OF A 8/10, TO BE MEDICATED PER EMAR ORDERS. SAFETY PRECAUTIONS IN PLACE. WILL CONTINUE TO MONITOR.
[2019-10-18 23:45] VITALS: BP 120/78
--- NOTE | 2019-10-19 00:37 | NUR ---
PT RESTING IN BED, NO S/S OF DISTRESS AT THIS TIME. SAFETY PRECAUTIONSIN PLACE. WILL COTNINUE TO MONITOR.
[2019-10-19 04:00] VITALS: BP 117/79
--- NOTE | 2019-10-19 04:33 | NUR ---
PT RESTING IN BED, NO S/S OF DISTRESS AT THIS TIME, TELE IN PLACE. WILL CONTINUE TO MONITOR.
[2019-10-19 07:40] VITALS: BP 148/90
--- NOTE | 2019-10-19 07:40 | NUR ---
ASSESSMENT IS COMPLETED: IV SITE IS FREE FROM REDNESS OR EDEMA. HR IS IRREG,PULSES ARE STRONG X4, PT C/O "BLADDER FEELING FULL" UNABLE TO URINATE MUCH THIS AM SINCE LAST NIGHT PER PT. BREATH SOUNDS ARE CLEAR,BILATERALLY. CONTINUE TO OSBERVE AND MONITOR. TELE MONITOR IN PLACE.
[2019-10-19 08:00] VITALS: BP 148/90
--- NOTE | 2019-10-19 08:00 | NUR ---
SPOKE WITH MAVERICK CHAPMAN AND DR ELY RE: PT C/O UNABLE TO URINATE. BLADDER SCANNED PT IS 939. ABLE TO STRAIGHT CATH PT HAD 900ML OT WITH OLENA URINE. PT IS FEEING MORE COMFORTABLE.
[2019-10-19 10:54] VITALS: BP 127/78
--- NOTE | 2019-10-19 12:00 | NUR ---
PT IS SITTING IN THE CHAIR WITH NO DISTRESS NOTED. IV SITE IS FREE FROM REDNESS OR EDEMA. PT HAS BEEN HAVING SMEARS OF STOOL. CONTINUE TO OBSERVE AND MONITOR.
[2019-10-19 15:05] VITALS: BP 103/63
--- NOTE | 2019-10-19 16:00 | NUR ---
PT CONTINUES TO HAVE ISSUES WITH URINATING. CONITNUE TO OSBERVE AND MONITOR.
--- NOTE | 2019-10-19 16:32 | NUR ---
SPOKE WITH DR ELY RE: PT UNABLE TO VOID THIS AFTERNOON. BLADDER SCANNED IS 817. MAY PLACE A DURAN IF OVER 400ML. INFORMED PT RE: PLAN , VERBALIZED UNDERSTANDING, PLACED A #16 TELUGU DURAN , PT TOLERATED WELL. IMMEDIATE YELLOW URINE. CAME OUT. CONTINUE TO OSBERVE AND MONITOR.
[2019-10-19 19:16] VITALS: BP 118/67
--- NOTE | 2019-10-19 20:45 | NUR ---
PT RESTING IN BED, ALERT AND ORIETNED. RESPIRATIONS EVEN AND UNLABORED ON RA, LUNG SOUND CLEAR. PEDAL PULSES WEAK. PT REPORTS PAIN OF A 6/10, PT TO BE MEDICATED PER EMAR ORDERS. PT REPOSITIONED. TELE IN PLACE. DURAN DRAINING TO GRAVITY. CALL ALFRED WITHIN REACH. WILL CONTINUE TO MONITOR.
[2019-10-20 00:10] VITALS: BP 120/73
--- NOTE | 2019-10-20 00:15 | NUR ---
PT RESTING IN BED. RESPIRATIONS EVEN AND UNLABORED ON RA. NO S/S OF DISTRESS AT THIS TIME. SAFETY PRECAUTIONS IN PLACE. WILL CONTINUE TO MONITOR.
--- NOTE | 2019-10-20 03:45 | NUR ---
PT ASSISTED UP TO THE BSC PER REQUEST. BED LINENS CHANGED, PT BATHED AND ASSISTED BACK INTO BED. TELE IN PLACE. CALL ALFRED WITHIN REACH WILL CONTINUE TO MONITOR.
[2019-10-20 04:10] VITALS: BP 110/67
[2019-10-20 05:11] LABS: HEMATOCRIT 36.2 % (39.0-50.0); IMMATURE GRANULOCYTES 0.6 % (0.0-5.0); MEAN CELL VOLUME 86.8 fL CALC (80.0-100.0); MEAN CORPUSCULAR HGB 28.5 pG CALC (26.0-32.0); MEAN CORPUSCULAR HGB CONC 32.9 g/dL CAL (32.0-36.0); NEUT# 9.7 thou/uL (1.82-7.42); RED BLOOD COUNT 4.17 mill/uL (4.70-6.10); RED CELL DISTRI WIDTH 14.4 % (11.5-15.5)
[2019-10-20 05:18] LABS: HEMOGLOBIN 11.9 g/dl (14.0-18.0)
[2019-10-20 05:48] LABS: ANION GAP 11 (6-22 (CALC)); BILIRUBIN, TOTAL 0.9 mg/dL (0.0-1.4); BUN 12 mg/dL (8-23); BUN/CREATININE RATIO 24 (12-20 (CALC)); CARBON DIOXIDE 26 mmol/l (22-30); CHLORIDE 96 mmol/l (95-108); CREATININE 0.5 mg/dL (0.7-1.3); GFR > 60 ML/MIN (>=60 (CALC)); GFR FOR AFR.AMER. > 60 ML/MIN (>=60 (CALC)); POTASSIUM 4.2 mmol/l (3.5-5.1); SGOT/AST 32 u/l (19-48); SODIUM 129 mmol/l (137-146); TOTAL PROTEIN 5.6 g/dL (6.3-8.2)
[2019-10-20 05:54] LABS: ALBUMIN 2.9 g/dL (3.2-5.0); ALKALINE PHOSPHATASE 188 u/l (38-126)
--- NOTE | 2019-10-20 07:30 | NUR ---
RECIEVED REPORT FROM [facility]AG[facility] WOODWARD. INTRODUCED SELF TO PT. HELPED PT ON BED HENDRICKS. IV RUNNING AT 20 ML NS, SITE APPEARS HEALTHY AND PATENT. PT DENIES ANY PAIN OR DISCOMFORTS AT THIS TIME. ALL SATFTEY PRECAUTIONS IN PLACE WITH THE ALL LIGHT IN REACHED, ENCOURAED TO CALL FOR ASSISTANCED. WILL CONINTUE TO MONITOR.
[2019-10-20 08:00] VITALS: BP 131/82
--- NOTE | 2019-10-20 08:00 | NUR ---
ASSESMENT AND VITALS OBTAINED. BP 131/82, HR 112, O2 93% ON ROOM AIR. HEART RHYTHM NORMAL, BREATH SOUNDS CLEAR, BOWEL SOUNDS ACTIVE IN ALL QUADRANTS. RADIAL AND PEDAL PULSES STRONG. NO EDEMA. TELE IN PLACE. SKIN IS COOL AND DRY. IV RUNNING AT 20ML NS, SITE APPEARS HEALTHY AND PATENT. PT DENIES ANY PAIN OR DISCOMFORTS AT THIS TIME. ENCOURAGED TO CALL IF NEED ASSISTANCE, ALL SAFTEY PRECAUTIONS IN PLACE WITH CALL LIGHT IN REACH. WILL CONTINUE TO MONITOR.
[2019-10-20 10:55] VITALS: BP 111/66
--- NOTE | 2019-10-20 11:00 | NUR ---
AT BEDSIDE DISCUSSING POC WITH PT.
--- NOTE | 2019-10-20 12:00 | NUR ---
PT RESTING IN SEMI FOWLERS POSTION. BREATHING IS EVEN AND UNLABORED ON ROOM AIR. TELE IS IN PLACE. PT DENIES ANY PAIN OR DISCOMFORTS AT THIS TIME. ALL SAFTEY PRECAUTIONS IN PLACE WITH CALL LIGHT IN REACH, ENCOURAGED TO CALL FOR ASSISTANCE. WILL CONTINUE TO MONITOR.
[2019-10-20] MEDS ORDERED: OXYCOD-APAP1 TA1 PO (13:00)
[2019-10-20] MEDS ORDERED: TAMSULOSIN HCL0.4 MG PO (13:00)
--- NOTE | 2019-10-20 15:45 | NUR ---
PT RESTING IN RECYLINER WATCHING TV. BREATHING IS EVEN AND UNLABORED ON ROOM AIR. DURAN CATHATER STILL IN PLACE, PT DENIES ANY DIFFICULTY. IV REMOVED WITH CATHATER INTACT, PT TOLERATED WELL. PT REPORTED A 6/10 PAIN, LORTAB GIVEN. ALL SAFTEY PRECAUTIONS IN PLACE WITH CALL LIGHT IN REACH, ENCOURAGED PT TO CALL FOR ASSISTANCE. WILL CONTINUE TO MONITOR.
--- NOTE | 2019-10-20 16:34 | NUR ---
Discharge instructions given. Patient verbalizes understanding of same. Discharged in stable condition via Wheelchair to [facility] with TRANSPORTER . All belongings sent with pt. PT LEFT VIA WHEELCHAIR IN STABLE CONDITION WITH ALL BELONGINGS, INCLUDING DISCHARGE PAPERWORK AND EDUCATION,WIT REHAB TRANSPORTER.
--- NOTE | 2019-10-20 16:53 | NUR ---
REPORT GIVEN TO CHRIS SHEPARD AT [facility].
== END 2019-10-20 14:30 | DRG 551 ==
LOC: ED 10:22 → ED-I 13:34 → ED 13:48 → ED-I 13:49 → MS2 13:49
PROVIDERS: Nurse Practitioner Family; ADMIT Internal Medicine; ATTEND Internal Medicine
PROC: 0T9B70Z Drainage of Bladder with Drainage Device, Via Natural or Artificial Opening (ICD-10-PCS; principal; 2019-10-19)
DX: S32.010A Wedge compression fracture of first lumbar vertebra, initial encounter for closed fracture (principal); S32.402A Unspecified fracture of left acetabulum, initial encounter for closed fracture; S32.592A Other specified fracture of left pubis, initial encounter for closed fracture; S50.312A Abrasion of left elbow, initial encounter; S80.212A Abrasion, left knee, initial encounter; E11.9 Type 2 diabetes mellitus without complications; I10 Essential (primary) hypertension; I48.91 Unspecified atrial fibrillation; R33.9 Retention of urine, unspecified; W10.1XXA Fall (on)(from) sidewalk curb, initial encounter; E78.5 Hyperlipidemia, unspecified; Y92.89 Other specified places as the place of occurrence of the external cause; Z98.84 Bariatric surgery status; Z87.891 Personal history of nicotine dependence; Z79.84 Long term (current) use of oral hypoglycemic drugs; Z79.01 Long term (current) use of anticoagulants; Z11.59 Encounter for screening for other viral diseases

== ENCOUNTER 2020-02-26 18:48 | Emergency (ER) | payer MEDICARE ==
[~2020-02-26] VITALS: Ht 190.5 cm; Wt 90.0 kg
[~2020-02-26 18:48] MED LIST changes: +ELIQUIS5 MG PO; +METOPROL TAR25 MG PO; +OXYCOD-APAP1 TA1 PO; +TAMSULOSIN HCL0.4 MG PO
[2020-02-26 20:55] VITALS: BP 110/58
== END 2020-02-26 20:55 | disposition home or self-care (01) ==
LOC: ED 18:48
DX: T83.098A Other mechanical complication of other urinary catheter, initial encounter (principal); N40.1 Benign prostatic hyperplasia with lower urinary tract symptoms; R33.8 Other retention of urine; N39.0 Urinary tract infection, site not specified; Z96.0 Presence of urogenital implants; Y84.6 Urinary catheterization as the cause of abnormal reaction of the patient, or of later complication, without mention of misadventure at the time of the procedure; Z45.2 Encounter for adjustment and management of vascular access device; Z16.12 Extended spectrum beta lactamase (ESBL) resistance
CPT/HCPCS: J1335

== ENCOUNTER 2020-02-28 17:14 | Emergency (ER) | payer MEDICARE ==
[~2020-02-28] VITALS: Ht 190.5 cm; Wt 87.7 kg
[2020-02-28 18:05] VITALS: BP 110/72
== END 2020-02-28 18:33 | disposition home or self-care (01) ==
LOC: ED 17:14
DX: T83.098A Other mechanical complication of other urinary catheter, initial encounter (principal); N39.0 Urinary tract infection, site not specified; E11.9 Type 2 diabetes mellitus without complications; I10 Essential (primary) hypertension; I48.91 Unspecified atrial fibrillation; Y84.6 Urinary catheterization as the cause of abnormal reaction of the patient, or of later complication, without mention of misadventure at the time of the procedure; Z79.4 Long term (current) use of insulin; Z45.2 Encounter for adjustment and management of vascular access device; Z16.12 Extended spectrum beta lactamase (ESBL) resistance
CPT/HCPCS: J1335

== ENCOUNTER 2020-04-11 13:41 | Emergency (ER) | payer MEDICARE ==
[~2020-04-11] VITALS: Ht 190.5 cm; Wt 100.0 kg
[2020-04-11 14:38] LABS: HEMATOCRIT 30.7 % (39.0-50.0); HEMOGLOBIN 9.3 g/dl (14.0-18.0); IMMATURE GRANULOCYTES 1.3 % (0.0-5.0); MEAN CELL VOLUME 84.8 fL CALC (80.0-100.0); MEAN CORPUSCULAR HGB 25.7 pG CALC (26.0-32.0); MEAN CORPUSCULAR HGB CONC 30.3 g/dL CAL (32.0-36.0); NEUT# 4.68 thou/uL (1.82-7.42); RED BLOOD COUNT 3.62 mill/uL (4.70-6.10)
[2020-04-11 14:50] LABS: ALBUMIN 3.7 g/dL (3.2-5.0); ALKALINE PHOSPHATASE 125 u/l (38-126); ANION GAP 12 (6-22 (CALC)); BUN 36 mg/dL (8-23); BUN/CREATININE RATIO 62 (12-20 (CALC)); CARBON DIOXIDE 27 mmol/l (22-30); CHLORIDE 99 mmol/l (95-108); CREATININE 0.6 mg/dL (0.7-1.3); GFR > 60 ML/MIN (>=60 (CALC)); GFR FOR AFR.AMER. > 60 ML/MIN (>=60 (CALC)); POTASSIUM 4.2 mmol/l (3.5-5.1); SGOT/AST 23 u/l (19-48); SODIUM 134 mmol/l (137-146)
[2020-04-11 14:52] LABS: BILIRUBIN, TOTAL 0.4 mg/dL (0.0-1.4); TOTAL PROTEIN 6.9 g/dL (6.3-8.2)
[2020-04-11 15:01] LABS: ACT PARTIAL THROMBO TIME 28.6 SECONDS (20.0-32.5); INTERNATIONAL NORMALIZED RATIO 1.1 RATIO (0.7-1.3); PROTHROMBIN TIME 10.6 SECONDS (9.0-12.5)
[2020-04-11] MEDS ORDERED: KEFLEX500 M1 PO (15:35)
[2020-04-11 15:50] VITALS: BP 147/72
[2020-04-11] MEDS ORDERED: PERCOCET1 TA4 PO (16:03)
== END 2020-04-11 15:50 | disposition left against medical advice (07) ==
LOC: ED 13:41
DX: L03.116 Cellulitis of left lower limb (principal); D64.9 Anemia, unspecified; E87.2 Acidosis; E11.9 Type 2 diabetes mellitus without complications; I10 Essential (primary) hypertension; Z79.4 Long term (current) use of insulin; Z91.19 Patient's noncompliance with other medical treatment and regimen; M79.89 Other specified soft tissue disorders

== ENCOUNTER 2020-06-03 07:30 | Day surgery (SDC) | payer MEDICARE ==
[~2020-06-03] VITALS: Ht 190.5 cm; Wt 95.7 kg
[~2020-06-03 07:30] MED LIST changes: +ALFALFA650 MG PO; +CALCIUM600 M1 PO; +CBD OIL PO; +CINNAMON500 MG PO; +GLIPIZIDE5 MG PO; +HM IRON65 MG PO; +JARDIANCE25 MG PO; +KEFLEX500 M1 PO; +KRILL OIL300 MG PO; +MAGNESIUM400 MG PO; +PERCOCET1 TA4 PO; +PROSCAR5 MG PO; +VITAMIN B-12500 MCG PO; +VITAMIN D32000 UNI2 PO
[2020-06-03 10:11] VITALS: BP 136/89
== END 2020-06-03 10:40 | disposition home or self-care (01) ==
LOC: ENDO 07:30 → ORM 09:15 → ENDO 09:30
PROVIDERS: ATTEND Surgery
PROC: 0DJD8ZZ Inspection of Lower Intestinal Tract, Via Natural or Artificial Opening Endoscopic (ICD-10-PCS; principal; 2020-06-03)
DX: R39.89 Other symptoms and signs involving the genitourinary system (principal); K57.30 Diverticulosis of large intestine without perforation or abscess without bleeding; I10 Essential (primary) hypertension; E11.9 Type 2 diabetes mellitus without complications; I48.91 Unspecified atrial fibrillation; Z86.010 Personal history of colon polyps; Z20.828 Contact with and (suspected) exposure to other viral communicable diseases

== ENCOUNTER 2020-06-23 00:26 | Inpatient (IN) | payer MEDICARE ==
[~2020-06-23] VITALS: Ht 190.5 cm; Wt 100.0 kg
[2020-06-29] VITALS (8 sets, daily range): BP systolic 121–143; BP diastolic 71–91
--- NOTE | 2020-06-29 15:20 | NUR ---
PT ARRIVED TO MED/SURG ROOM 264 IN STABLE CONDITON VIA HOSPITAL BED ACCOMPANIED BY ANNALEE,RN AND ANGÉLICA,RN;BEDSIDE REPORT RECEIVED AT THIS TIME;PT A&O X3, ORIENTED TO ROOM AND CALL LIGHT SYSTEM;PT POST OP OPEN SIGMOID COLECTOMY WITH CLOSE BLADDER FISTULA;WT AND VS OBTAINED BY BEAN TEMPLE;PT REPORTS ABDOMINAL PAIN RATING 6/10 ON THE PAIN SCALE, PAIN SCALE AND REPORTING EDUCATED AND PT VERBALIZES UNDERSTANDING;ASSESSMENT COMPLETED;RESPIRATIONS EVEN AND UNLABORED ON O2 @ 2L VIA NC,PT IS NOT HOME DEPENDENT;CLEAR LUNG SOUNDS;I.S. PROVIDED AND PT EDUCATED ON USE 10X PER HOUR;ABDOMEN SOFT ON PALPATION AND HYPOACTIVE IN ALL 4 QUADRANTS, LAST BM 06/29/20;X1 DRESSING TO ABDOMEN CDI;DURAN CATHETER IN PLACE DRAINING CLEAR/YELLOW URINE TO GRAVITY;PT REPORTS DURAN WAS PLACED 2 MTHS AGO WHILE IN THE HOSPITAL;WEAK PEDAL PULSES;REDDENED AREA NOTED TO COCCYX, PHOTO OBTAINED AND PLACED IN CHART;#20G TO LAC INFUSING LR @ 150ML/HR PER ORDER,SITE APPEARS HEALTHY;PT REMAINS NPO BUT ICE CHIPS PROVIDED PER ORDER;FALL AND ALLERGY BAND APPLIED TO LEFT ARM;PT DENIES ANY ADDITIONAL NEEDS AT THIS TIME BUT REQUESTS TO "GET SOME SLEEP";PT ENCOURAGED TO CALL FOR ASSISTANCE IF NEEDED;FALL PRECAUTIONS IN PLACE WITH BED IN THE LOWEST POSITION WITH CALL LIGHT IN REACH;WILL CONTINUE TO MONITOR
--- NOTE | 2020-06-29 16:20 | NUR ---
PT APPEARS TO BE SLEEPING IN SEMI FOWLERS POSITION;RESPIRATIONS EVEN AND UNLABORED ON O2 @ 2L VIA NC;NO S/S OF DISTRESS NOTED;IV FLUIDS INFUSING WITH EASE PER ORDER;DURAN CATHETER DRAINING TO GRAVITY;ALL SAFETY PRECAUTIONS IN PLACE WITH BED IN THE LOWEST POSITION AND CALL LIGHT IN REACH;WILL CONTINUE TO MONITOR
--- NOTE | 2020-06-29 18:36 | NUR ---
PT MEDICATED WITH PRN DILAUDID 0.5MG SLOW IVP FOR ABDOMINAL PAIN RATING 6/10 ON THE PAIN SCALE;WILL CONTINUE TO MONITOR FOR EFFECTIVENESS
--- NOTE | 2020-06-29 20:20 | NUR ---
PT RESTING IN BED, AWAKE AND ALERT. PHYSICAL ASSESMENT COMPLETE. SPO2 100% ON 02 AT 2L/NC. POST-ANASTHESIA SUPPLEMENTAL O2 D/C'd AT THIS TIME. LUNGS ARE CLEAR. RESPIARATIONS REGULAR AND UNLABORED. INCENTIVE SPIROMETER DISCUSSED WITH PATIENT. PT DEMONSTRATES EFFECTIVE USE. AGREES TO USE 10X'S PER HOUR WA. BOWEL SOUNDS PRESENT. ABD SOFT, TENDER. ABD DRESSING CLEAN, DRY AND INTACT. DURAN SECURED, TUBING UNKINKED AND UNOBSTRUCTED, DRAINING TO GRAVITY. URINE OUTPUT CLEAR YELLOW. SCD'S ON. REPORTS LOWER ABD PAIN 11/25, DILAUDID 1MG IV ADMINISTERED, SEE E-MAR. SCHEDULED MEDICATIONS ADMINISTERED, SEE E-MAR. TOLERATED PO MEDS WHOLE WITH [place] SIPS H20. FINGERSTICK GLUCOSE 138mg/dl. APICAL HR IRREGULAR, AFIB ON TELE. ICE CHIPS PROVIDED PER PTS REQUEST. PLAN OF CARE REVIEWED WITH PT, DENIES FURTHER QUESTIONS AND VERBALIZES UNDERSTANDING. PT DENIES FURTHER NEEDS AT THIS TIME. CALL ALFRED WITHIN REACH, AGREES TO CALL PRN. L-AC #20 G INFUSING LR @ 150ML/H. IV SITE PATENT.
--- NOTE | 2020-06-29 21:00 | NUR ---
PT OOB TO CHAIR WITH ASSISTANCE FROM [facility] CNA PER MD'S ORDER. PT TOLERATED TRANSFER WELL. MADE COMFORTABLE IN CHAIR. CALL ALFRED WITHIN REACH, AGREES TO CALL PRN.
--- NOTE | 2020-06-29 22:05 | NUR ---
PT BACK TO BED PER HIS REQUEST. CALL ALFRED WITHIN REACH, AGREES TO CALL PRN.
[2020-06-30] VITALS (7 sets, daily range): BP systolic 111–121; BP diastolic 58–70
--- NOTE | 2020-06-30 02:02 | NUR ---
ICE CHIPS PROVIDED PER PTS REQUEST.
--- NOTE | 2020-06-30 04:03 | NUR ---
PT APPEARS TO BE SLEEPING COMFORTABLY, LAYING IN BED WITH EYES CLOSED, RESPIRATIONS REGULAR AND UNLABORED, NO APPARENT DISTRESS. CALL ALFRED REMAINS WITHIN REACH.
--- NOTE | 2020-06-30 05:56 | NUR ---
DURAN EMPTY, PT STATES "I JUST EMPTIED MY BAG", ASKED PT NOT TO EMPTY CATH HIMSELF BECAUSE WE ARE MONITORING HIS OUTPUT. PT APOLOGIZES AND AGREES.
[2020-06-30 06:23] LABS: IMMATURE GRANULOCYTES 0.2 % (0.0-5.0); MEAN CORPUSCULAR HGB 21.3 pG CALC (26.0-32.0); MEAN CORPUSCULAR HGB CONC 27.4 g/dL CAL (32.0-36.0); NEUT# 6.36 thou/uL (1.82-7.42); RED BLOOD COUNT 5.5 mill/uL (4.70-6.10); RED CELL DISTRI WIDTH 18.5 % (11.5-15.5)
[2020-06-30 06:27] LABS: HEMOGLOBIN 11.7 g/dl (14.0-18.0)
[2020-06-30 06:28] LABS: HEMATOCRIT 42.7 % (39.0-50.0); MEAN CELL VOLUME 77.6 fL CALC (80.0-100.0)
[2020-06-30 06:58] LABS: ANION GAP 16 (6-22 (CALC)); BUN 27 mg/dL (8-23); BUN/CREATININE RATIO 36 (12-20 (CALC)); CARBON DIOXIDE 27 mmol/l (22-30); CHLORIDE 100 mmol/l (95-108); CREATININE 0.8 mg/dL (0.7-1.3); GFR > 60 ML/MIN (>=60 (CALC)); GFR FOR AFR.AMER. > 60 ML/MIN (>=60 (CALC)); POTASSIUM 4.7 mmol/l (3.5-5.1); SODIUM 138 mmol/l (137-146)
--- NOTE | 2020-06-30 07:05 | NUR ---
REPORT RECEIVED FROM MILAGROS SANTILLAN
--- NOTE | 2020-06-30 08:00 | NUR ---
PT OOB RESTING IN RECLINER,A&O X3 WITH FORGETFULNESS NOTED AT TIMES;VS OBTAINED AND ASSESSMENT COMPLETED;PT POD #1 OPEN SIGMOID COLECTOMY WITH CLOSURE OF BLADDER FISTULA;PT REPORTS ABDOMINAL PAIN RATING 7/10 ON THE PAIN SCALE AND REQUESTS PAIN MEDICATION, PT MEDICATED WITH PRN DILAUDID 1MG SLOW IVP;RESPIRATIONS EVEN AND UNLABORED ON RA,CLEAR LUNG SOUNDS;I.S. AT BEDSIDE AND PT DEMONSTRATED USE, ENCOURAGED USE 10X PER HOUR;ABDOMEN SOFT ON PALPATION AND ACTIVE IN ALL 4 QUADRANTS;DRESSING TO ABDOMEN REMAINS CDI;DURAN CATHETER PATENT DRAINING SEDIMENT/CLEAR URINE TO GRAVITY WITH EASE;WEAK PEDAL PULSES;#20G TO LAC INFUSING LR @ 150ML/HR,SITE APPEARS HEALTHY;TELE MONITORING IN PLACE;SKIN INTACT,REDDENING NOTED TO COCCYX;NPO DIET REINFORCED AT THIS TIME AND PT VERBALIZES UNDERSTANDING;ACCUCHECK 149;PT DENIES ANY ADDITIONAL NEEDS AND IS ENCOURAGED TO CALL FOR ASSISTANCE IF NEEDED;CALL LIGHT IN REACH;WILL CONTINUE TO MONITOR
--- NOTE | 2020-06-30 08:14 | NUR ---
AT BEDSIDE DISCUSSING POC.
--- NOTE | 2020-06-30 11:20 | NUR ---
PT OOB RESTING IN RECLINER;RESPIRATIONS EVEN AND UNLABORED ON RA;PT REPORTS ABDOMINAL PAIN RATING 5/10 ON THE PAIN SCALE BUT DENIES THE NEED FOR PAIN MEDICATION AT THIS TIME,SCHEDULED TORADOL PROVIDED;DURAN CATHETER REMAINS PATENT;IVF INFUSING WITH EASE PER ORDER AND ABX STARTED AT THIS TIME;ABDOMINAL DRESSING CDI;ACCUCHECK 147, NO COVERAGE NEEDED;PT ENCOURAGED TO CALL FOR ASSISTANCE IF NEEDED;CALL LIGHT IN REACH;WILL CONTINUE TO MONITOR
--- NOTE | 2020-06-30 12:20 | NUR ---
AT BEDSIDE DISCUSSING POC.
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
--- NOTE | 2020-06-30 15:30 | NUR ---
PT OOB RESTING IN RECLINER;RESPIRATIONS EVEN AND UNLABORED ON RA;PT REPORTS MINIMAL PAIN AT THIS TIME AND DENIES THE NEED FOR PAIN MEDICATION,PAIN SCALE AND REPORTING EDUCATED;IV SITE REMAINS PATENT INFUSING LR WITH EASE;DURAN CATHETER PATENT;TELE MONITORING IN PLACE;ICE PROVIDED PER REQUEST;PT DENIES ANY ADDITIONAL NEEDS;ENCOURAGED TO CALL FOR ASSISTANCE IF NEEDED;CALL LIGHT IN REACH;WILL CONTINUE TO MONITOR
--- NOTE | 2020-06-30 17:50 | NUR ---
PT REPORTS ABDOMINAL PAIN RATING 7/10 ON THE PAIN SCALE AND REQUESTS PAIN MEDICATION, PT MEDICATED WITH PRN DILAUDID 1MG SLOW IV PER ORDER;PT DENIES ANY ADDITIONAL NEEDS AT THIS TIME;CALL LIGHT IN REACH;WILL CONTINUE TO MONITOR
--- NOTE | 2020-06-30 20:10 | NUR ---
INTRODUCED MYSELF TO PT. PHYSICAL ASSESMENT COMPLETE. PT CURRENTLY DENIES PAIN OR DISCOMFORT. SCHEDULED MEDICATIONS AND PRN MEDICATION ADMINISTERED, SEE E-MAR. PT DENIES ANY NEEDS AT THIS TIME. PLAN OF CARE REVIEWED, PT DENIES QUESTIONS, VERBALIZES UNDERSTANDING. ITEMS WITHIN REACH, BED LOCKED IN LOW POSITION W/ BEDRAILS UP X2. CALL ALFRED WITHIN REACH, AGREES TO CALL PRN.
--- NOTE | 2020-06-30 23:45 | NUR ---
PT CONCERNED THAT HE MAY BE RETAINING URINE. EMPTIED DURAN BAG WITH 300 MLS. ADVISED PT THAT 300 ML IN 7 HOURS WAS AN ADEQUATE AMOUNT OF OUTPUT BUT IF HE FELT PRESSURE WE WOULD DO A BLADDER SCAN. PT WAS MEDICATED FOR HIS ABDOMINAL PAIN. WILL CONTINUE TO MONITOR.
--- NOTE | 2020-07-01 01:47 | NUR ---
PATIENT RESTING IN BED WITH HOB ELEVATED. EYES ARE CLOSED. RESP ARE EVEN AND UNLABORED. IVF PATENT AND INFUSING VIA LAC SITE AT 125CC/HR. DURAN CATH PATENT AND DRAINING YELLOW URINE. TELE MONITOR IN PLACE. CALL LIGHT IN REACH. WILL CONT TO MONITOR.
[2020-07-01 03:36] VITALS: BP 94/54
--- NOTE | 2020-07-01 04:18 | NUR ---
PATIENT CONT TO SLEEP WITH HOB ELEVATED AND EYES CLOSED. RESPS ARE EVEN AND UNLABORED. TELE MONITOR IN PLACE. IVF PATENT AND INFUSING VIA LAC SITE AT 125CC/HR. DURAN PATENT AND DRAINING YELLOW URINE. CALL LIGHT IN REACH. WILL CONT TO MONITOR.
--- NOTE | 2020-07-01 05:51 | NUR ---
PATIENT RESTING IN BED-TORADOL GIVEN ORDERED. PATIENT IS DROWSY BUT AROUSABLE. DURAN CATH IS PATENT AND DRAINING OLENA URINE WITH ALOT OF SEDIMENT NOTED IN TUBING. ABD DRESSING IS CDI AT THIS TIME. IVF LR PATENT AND INFUSING VIA LAC SITE AT 125CC/HR. CALL LIGHT IN REACH. WILL CONT TO MONITOR.
[2020-07-01 06:00] LABS: IMMATURE GRANULOCYTES 0.3 % (0.0-5.0); MEAN CELL VOLUME 76.2 fL CALC (80.0-100.0); MEAN CORPUSCULAR HGB 21.2 pG CALC (26.0-32.0); MEAN CORPUSCULAR HGB CONC 27.9 g/dL CAL (32.0-36.0); NEUT# 4.87 thou/uL (1.82-7.42); RED BLOOD COUNT 4.71 mill/uL (4.70-6.10); RED CELL DISTRI WIDTH 18.2 % (11.5-15.5)
[2020-07-01 06:15] LABS: HEMATOCRIT 35.9 % (39.0-50.0)
[2020-07-01 06:25] LABS: ALBUMIN 3.1 g/dL (3.2-5.0); ALKALINE PHOSPHATASE 167 u/l (38-126); ANION GAP 10 (6-22 (CALC)); BILIRUBIN, TOTAL 0.4 mg/dL (0.0-1.4); BUN 25 mg/dL (8-23); BUN/CREATININE RATIO 38 (12-20 (CALC)); CARBON DIOXIDE 29 mmol/l (22-30); CHLORIDE 100 mmol/l (95-108); CREATININE 0.7 mg/dL (0.7-1.3); GFR > 60 ML/MIN (>=60 (CALC)); GFR FOR AFR.AMER. > 60 ML/MIN (>=60 (CALC)); POTASSIUM 4.5 mmol/l (3.5-5.1); SGOT/AST 36 u/l (19-48); SODIUM 134 mmol/l (137-146); TOTAL PROTEIN 5.8 g/dL (6.3-8.2)
--- NOTE | 2020-07-01 07:05 | NUR ---
REPORT RECEIVED FROM MILAGROS ALARCON
--- NOTE | 2020-07-01 08:05 | NUR ---
PT RESTING AT BEDSIDE,A&O X3;VS OBTAINED AND ASSESSMENT COMPLETED;PT RE-POSITIONED INTO RECLINER AT THIS TIME WITH A STEADY GAIT;PT POD #2 OPEN SIGMOID COLECTOMY WITH CLOSURE OF BLADDER FISTULA;PT REPORTS MINIMAL PAIN AT THIS TIME,PAIN SCALE AND REPORTING EDUCATED;RESPIRATIONS EVEN AND UNLABORED ON RA,CLEAR LUNG SOUNDS;I.S. AT BEDSIDE AND PT DEMONSTRATED USE, ENCOURAGED 10X PER HOUR AND GOAL 2000;ABDOMEN SOFT ON PALPATION AND ACTIVE IN ALL 4 QUADRANTS;ABDOMINAL DRESSING REMOVED PER ORDER AND NEW DRY DRESSING APPLIED; WEAK PEDAL PULSES;REDDENING NOTED TO COCCYX BUT SKIN OTHERWISE INTACT;TELE MONITORING IN PLACE;#20G TO LAC INFUSING LR @ 125ML/HR,SITE APPEARS HEALTHY;ACCUCHECK 111, NO COVERAGE NEEDED;DURAN CATHETER PATENT DRAINING TO DK YELLOW/SEDIMENT URINE TO GRAVITY WITH EASE;CLEAR LIQUID DIET REINFORCED;PT DENIES ANY ADDITIONAL NEEDS AT THIS TIME AND IS ENCOURAGED TO CALL FOR ASSISTANCE IF NEEDED;FALL PRECAUTIONS IN PLACE WITH BED IN THE LOWEST POSITION AND CALL LIGHT IN REACH;WILL CONTINUE TO MONITOR
[2020-07-01 08:06] VITALS: BP 117/66
--- NOTE | 2020-07-01 08:08 | NUR ---
AT BEDSIDE DISCUSSING POC.
--- NOTE | 2020-07-01 08:36 | NUR ---
AT BEDSIDE DISCUSSING POC.
--- NOTE | 2020-07-01 11:30 | NUR ---
PT OOB RESTING IN RECLINER;RESPIRATIONS EVEN AND UNLABORED ON R;PT REPORTS ABDOMINAL PAIN RATING 6/10 ON THE PAIN SCALE AND REQUESTS PAIN MEDICATION, PT MEDICATED WITH PRN DILAUDID 1MG SLOW IVP AT THIS TIME;ABDOMINAL DRESSING CDI;DURAN CATHETER PATENT;IV FLUIDS CONTINUE TO INFUSE WITH EASE TO LAC AND ABX STARTED PER ORDER;TELE MONITORING IN PLACE;ACCUCHECK 205, PT COVERED WITH SLIDING SCALE INSULIN PER ORDER;PT DENIES ANY ADDITIONAL NEEDS;ENCOURAGED TO CALL FOR ASSISTANCE IF NEEDED;FALL PRECAUTIONS REMAIN IN PLACE WITH BED IN THE LOWEST POSITION AND CALL LIGHT IN REACH;WILL CONTINUE TO MONITOR
[2020-07-01 12:03] VITALS: BP 116/66
--- NOTE | 2020-07-01 15:35 | NUR ---
PT RESTING IN RECLINER WATCHING TV;RESPIRATIONS EVEN AND UNLABORED ON RA;PT DENIES ANY CURRENT PAIN OR DISCOMFORTS;TELE MONITORING IN PLACE;ABD DRESSING PATENT;DURAN CATHETER CONTINUE TO DRAIN TO GRAVITY WITH EASE;CALL LIGHT IN REACH;WILL CONTINUE TO MONITOR
[2020-07-01 15:48] VITALS: BP 124/76
--- NOTE | 2020-07-01 16:30 | NUR ---
PT REPORTS ABDOMINAL PAIN RATING 8/10 ON THE PAIN SCALE AND REQUESTS PAIN MEDICATION, PT MEDICATED WITH PRN DILAUDID 1MG SLOW IVP AT THIS TIME;WILL CONTINUE TO MONITOR FOR EFFECTIVENESS
[2020-07-01 19:00] VITALS: BP 133/69
[2020-07-02] VITALS: BP 121/73
--- NOTE | 2020-07-02 00:02 | NUR ---
PT LAYING IN BED WITH EYES CLOSED, APPEARS TO BE SLEEPING, APPEARS COMFORTABLE AND IN NO DISTRESS. RESPIRATIONS REGULAR AND UNLABORED. ITEMS REMAIN WITHIN REACH, CALL ALFRED REMAINS WITHIN REACH. BED REMAINS LOCKED AND IN LOW POSITION WITH BEDRAILS UP X2. WILL CONTINUE TO MONITOR.
[2020-07-02 04:00] VITALS: BP 140/82
--- NOTE | 2020-07-02 04:03 | NUR ---
PT RESTING IN BED, NO SIGNS OF DISTRESS NOTED, RESP EVEN AND UNLABORED. PT VOICES NO NEEDS OR COMPLAINTS AT THIS TIME. CALL LIGHT IN REACH, CONTINUE TO MONITOR.
[2020-07-02 05:28] LABS: HEMATOCRIT 35.2 % (39.0-50.0); HEMOGLOBIN 9.9 g/dl (14.0-18.0); IMMATURE GRANULOCYTES 0.4 % (0.0-5.0); MEAN CELL VOLUME 76.7 fL CALC (80.0-100.0); MEAN CORPUSCULAR HGB 21.6 pG CALC (26.0-32.0); MEAN CORPUSCULAR HGB CONC 28.1 g/dL CAL (32.0-36.0); NEUT# 5.21 thou/uL (1.82-7.42); RED BLOOD COUNT 4.59 mill/uL (4.70-6.10)
[2020-07-02 05:52] LABS: ALKALINE PHOSPHATASE 188 u/l (38-126); ANION GAP 9 (6-22 (CALC)); BILIRUBIN, TOTAL 0.5 mg/dL (0.0-1.4); BUN 18 mg/dL (8-23); BUN/CREATININE RATIO 35 (12-20 (CALC)); CARBON DIOXIDE 30 mmol/l (22-30); CHLORIDE 98 mmol/l (95-108); CREATININE 0.5 mg/dL (0.7-1.3); GFR > 60 ML/MIN (>=60 (CALC)); GFR FOR AFR.AMER. > 60 ML/MIN (>=60 (CALC)); POTASSIUM 4.5 mmol/l (3.5-5.1); SGOT/AST 33 u/l (19-48); SODIUM 133 mmol/l (137-146); TOTAL PROTEIN 5.7 g/dL (6.3-8.2)
[2020-07-02 08:30] VITALS: BP 137/73
--- NOTE | 2020-07-02 08:30 | NUR ---
DR ELY IN TO VISIT WITH PT.
--- NOTE | 2020-07-02 08:40 | NUR ---
ASSESSMENT IS COMPLETED, IV SITE IS FREE FROM REDNESS OR EDEMA. HR IS REG,PULSES ARE STRONG X4, ABD IS SOFT WITH ACTIVE BS. BREATH SOUNDS ARE CLEAR,BILATERALLY. DRESSING ON ABD IS CDI. DURAN DRAINING YELLOW URINE WITH SMALL AMOUNT OF SEDIMENT NOTED. TELE MONITOR IN PLACE. CONTINUE TO OSBERVE AND MONITOR.
--- NOTE | 2020-07-02 08:45 | NUR ---
DR SHIRLEY IN TO VISIT WITH PT. THEN PT SENT TO HAVE XRAY COMPLETED; VIA WC WITH STAFF/. RETURNED AT 0930
--- NOTE | 2020-07-02 09:56 | NUR ---
DURAN DISCONTINEUD CATHETER INTACT. PT TOELRATED WELL.
[2020-07-02 10:45] VITALS: BP 124/79
--- NOTE | 2020-07-02 12:15 | NUR ---
PT IS SITTING IN THE CHAIR,. NO DISTRESS NOTED. HAD A LARGE BM
[2020-07-02 15:20] VITALS: BP 132/75
--- NOTE | 2020-07-02 15:30 | NUR ---
DRESSING CHANGED ON THE ABD.DRAINING SERO DRAINAGE. SITE IS BRUISED , ALANNA ARE INTACT. PT TOLERATED CHANGE WELL. CONTINUE TO OBSERVE AND MONITOR USING CLEAN TECHNIQUE.
[2020-07-02] MEDS ORDERED: OXYCODO-APAP1 TA2 PO (16:07)
--- NOTE | 2020-07-02 16:15 | NUR ---
PT IS SITTING IN THE CHAIR. NO DISTRESS NOTED. INQUIRED ABOUT PAIN MEDICATION. EXPLAINED THE DOSAGE "WANTING A HIGHER DOSAGE" CALLED DR ELY RE: PAIN MEDICATION WILL WAIT TO INCREASE AFTER DR SHIRLEY SEES PT. INFORMED PT VERBALIZED UNDERSTANDING.
[2020-07-02 19:50] VITALS: BP 141/82
--- NOTE | 2020-07-02 20:50 | NUR ---
ASSESSMENT COMPLETED AT THIS TIME AND PT MEDICATED FOR PAIN 8/10 ON PAIN SCALE. PT IS IN RECLINER AND RECORDS ANALYSIS MANAGER IS IN WITH PT AT THIS TIME. NO S/O DISTRESS NOTED. DRESSING TO LOWER ABD INCISIONAL AREA HAS SMALL AMOUNT OF DRAINAGE VISIBLE, BUT IS DRY AND INTACT AT THIS TIME. PT DENIES HAVING IT CHANGED AT THIS TIME. HE IS SITTING IN RECLINER AND STATES WHEN HE MOVES TO THE BED TO LAY DOWN HE WILL LET ME CHECK IT AND CHANGE DRESSING IF NEEDED. NO S/O DISTRESS NOTED AT THIS TIME. CALL LIGHT IS W/IN REACH AND PT ENCOURAGED TO CALL ME IF NEEDS ARISE.
--- NOTE | 2020-07-02 23:48 | NUR ---
PT IS SITTING UP ON THE SIDE OF THE BED ASKING FOR PAIN MEDICATION. MEDICATED FOR PAIN REPORTED 7/10 ON PAIN SCALE. PT DENIES ANY OTHER NEEDS, BUT HAS BEEN ENCOURAGED TO CALL NEEDS ARISE. V/S WERE JUST OBTAINED BY SPEECH THERAPIST TECHNICIAN PRIOR TO MY ENTERING THE ROOM.
[2020-07-03] VITALS: BP 143/88
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
[2020-07-03 04:00] VITALS: BP 112/64
--- NOTE | 2020-07-03 05:33 | NUR ---
PT IS SLEEPING IN BED AT THIS TIME. NO S/O DISTRESS NOTED. CALL LIGHT W/IN REACH.
--- NOTE | 2020-07-03 06:51 | NUR ---
PT MEDICATED FOR PAIN 8/10 ON PAIN SCALE.
[2020-07-03 07:10] LABS: HEMATOCRIT 38.1 % (39.0-50.0); HEMOGLOBIN 10.7 g/dl (14.0-18.0); IMMATURE GRANULOCYTES 0.3 % (0.0-5.0); MEAN CELL VOLUME 75.3 fL CALC (80.0-100.0); MEAN CORPUSCULAR HGB 21.1 pG CALC (26.0-32.0); MEAN CORPUSCULAR HGB CONC 28.1 g/dL CAL (32.0-36.0); NEUT# 4.82 thou/uL (1.82-7.42); RED BLOOD COUNT 5.06 mill/uL (4.70-6.10); RED CELL DISTRI WIDTH 18.3 % (11.5-15.5)
[2020-07-03 07:29] LABS: ALBUMIN 3.2 g/dL (3.2-5.0); ALKALINE PHOSPHATASE 165 u/l (38-126); ANION GAP 9 (6-22 (CALC)); BILIRUBIN, TOTAL 0.6 mg/dL (0.0-1.4); BUN 10 mg/dL (8-23); BUN/CREATININE RATIO 21 (12-20 (CALC)); CARBON DIOXIDE 30 mmol/l (22-30); CHLORIDE 98 mmol/l (95-108); CREATININE 0.5 mg/dL (0.7-1.3); GFR > 60 ML/MIN (>=60 (CALC)); GFR FOR AFR.AMER. > 60 ML/MIN (>=60 (CALC)); POTASSIUM 4.1 mmol/l (3.5-5.1); SGOT/AST 27 u/l (19-48); SODIUM 133 mmol/l (137-146)
[2020-07-03 07:40] VITALS: BP 141/82
--- NOTE | 2020-07-03 07:40 | NUR ---
ASSESSMENT IS COMPLETED: IV SITE IS FREE FROM REDNESS OR EDEMA. HR IS REG,PULSES ARE STRONG X4, ABD IS SOFT WITH ACTIVE BS., BREATH SOUNDS ARE CLEAR, BILATERALLY, DRESSING ON ABD IS CDI. TELE MONITOR IN PLACE. +1 EDEMA NOTED ON BILATERAL FEET. CONTINUE TO OSBERVE AND MONITOR.
[2020-07-03 10:50] VITALS: BP 116/66
--- NOTE | 2020-07-03 12:40 | NUR ---
PT HAS BEEN IN THE CHAIR AND BED. DR SHIRLEY IN TO VISIT WITH PT. REMOVED A STAPLE AND PACKED WITH DRY DRESSING AND COVERED WITH ABD PAD.
--- NOTE | 2020-07-03 13:11 | NUR ---
DRESSING CHANGED ON ABD AFTER DR SHIRLEY TOOK OUT 1 STAPLE AND PACKED WITH DRY 4X4 AND COVERED WITH ABD PAD. USING CLEAN TECHNIQUE.
[2020-07-03 15:10] VITALS: BP 127/83
--- NOTE | 2020-07-03 16:15 | NUR ---
PT IS RELAXING IN THE CHAIR. HAS AMBULATED IN THE ROOM AND HALLWAY. NO DISTRESS NOTED. IV SITE IS FREE FROM REDNESS OR EDEMA.
--- NOTE | 2020-07-03 19:10 | NUR ---
PT IS WALKING HALLWAY, SUBEDITOR IS OBTAINING REPORT FROM DAY NURSE. PT STOPPED TO SPEAK AT NURSES STATION. HE IS USING WALKER, NO S/O DISTRESS UPON WALKING, PT APPEARS STEADY UPON AMBULATION.
[2020-07-03 20:00] VITALS: BP 122/64
--- NOTE | 2020-07-03 20:30 | NUR ---
PT IS IN RECLINER, MEDICATED ORDER PROVIDE WITH PM MEDICATIONS AND FOR PAIN 8/10 ON PAIN SCALE. ASSESSMENT WAS ALSO COMPLETED AT THIS TIME. DRESSING TO LOWER ABD INCISION WAS SATURATED ALONG WITH GOWN AND SMALL AMOUNT ON HIS BLANKET HE WAS COVERING WITH. I CHANGED THE DRESSING TO ABD INCISION AND CHANGED HIS GOWN AND BLANKET AT THIS ITME. PT TOLERATED WELL WITH MODERATE AMOUNT OF PAIN EXPRESSED WITH DRESSING CHANGE. I OFFERED TO WAIT FOR PAIN MEDICATION TO HAVE TIME TO WORK, HE DENIED NEED AND ASKED FOR ME TO CONTINUE. MESH UNDERWEAR WITH LARGE PAD REPLACED PER PT REQUEST AND HE WAS REPOSITIONED IN RECLINER. CALL LIGHT PLACED WITHIN REACH.
[2020-07-04] VITALS: BP 114/70
--- NOTE | 2020-07-04 00:25 | NUR ---
PT MEDICATED WITH IV ANTIBIOTIC THERAPY. PT WAS SLEEPING, NO S/O DISTRESS NOTED AT THIS TIME. RAILINGS WERE DOWN ON BED, RAILINGS PLACED IN UP POSITION FOR SAFETY AT THIS TIME, PT STILL DID NOT AWAKE, BUT SOFT SONOROUS SOUNDS WERE HEARD. PT APPEARS VERY COMFORTABLE AT THIS TIME. GARMENT PRESSER WAS JUST IN OBTAINING V/S AND ASSISTING PT SHORTLY PRIOR TO MY ENTERING.
--- NOTE | 2020-07-04 03:31 | NUR ---
PT MEDICATED FOR PAIN 8/10 ON PAIN SCALE. PT IS AWAKE, STATED HE HAD TO GET UP TO USE URINAL AND COULD'NT GO BACK TO SLEEP DUE TO THE PAIN IN LOWER ABD. NO S/O DISTRESS. PT IS CALM AND TALKATIVE TELLING ME ABOUT HIS DREAMS THAT HE HAS BEEN HAVING. URINAL EMPTIED OF 300CC OF CLEAR YELLOW URINE. CALL LIGHT AT SIDE, PT DENIED ANY OTHER NEEDS AT THIS TIME. DRESSING CDI.
[2020-07-04 03:37] VITALS: BP 124/78
--- NOTE | 2020-07-04 05:23 | NUR ---
ANTIBIOTIC THERAPY ADMINISTERED AT THIS TIME AND DRESSING TO LOWER ABD INCISION CHECKED FOR DRAINAGE, CDI AT THIS TIME. PT DENIED REPLACEMENT OF IV AT THIS TIME. HE WANTS TO WAIT TO SEE "WHAT THEY ARE GOING TO DO WITH HIM TODAY."
[2020-07-04 07:35] VITALS: BP 122/70
--- NOTE | 2020-07-04 07:35 | NUR ---
ASSESSMENT IS COMPLETED: IV SITE IS FREE FROM REDNESS OR EDEMA. HR IS REG,PULSES ARE STRONG X4, ABD IS SOFT WITH ACTIVE BS. +2 PITTING EDEMA NOTED ON BILATERAL FEET. TELE MONITOR IN PLACE. DRESSING ON BUTTOCK IS CDI.
[2020-07-04 10:32] VITALS: BP 116/68
--- NOTE | 2020-07-04 12:00 | NUR ---
DR SHIRLEY IN TO VISIT WITH PT. NO DISTRESS NOTED IV SITE BEGAN TO LEAK PRIOR TO GIVING THE ABT. CONTIUE TO OSBERVE AND MONITOR.
--- NOTE | 2020-07-04 13:20 | NUR ---
FAMILY EDUCATED ON DRESSING CHANGES. AND MAY SHOWER.
--- NOTE | 2020-07-04 13:22 | NUR ---
IV SITE DISCONTINUED CATHETER INTACT. NO REDNESS OR EDEMA. DISCHARGE INSTRUCTIONS GIVEN AND VERBALIZED UNDERSTANDING. DRESSING INSTRUCTIONS GIVEN AND VERBALIZED UNDERSTANDING. Discharge instructions given. Patient verbalizes understanding of same. Discharged in stable condition via Wheelchair to Home with family. All belongings sent with pt.
== END 2020-07-04 13:21 | disposition home health service (06) | DRG 654 ==
LOC: MS2 06-29 09:25
PROVIDERS: Nurse Practitioner; ADMIT Surgery; ATTEND Surgery
PROC: 0DBN0ZZ Excision of Sigmoid Colon, Open Approach (ICD-10-PCS; principal; 2020-06-29)
PROC: 0TQB0ZZ Repair Bladder, Open Approach (ICD-10-PCS; 2020-06-29)
DX: N32.1 Vesicointestinal fistula (principal); E87.2 Acidosis; L03.311 Cellulitis of abdominal wall; I48.91 Unspecified atrial fibrillation; I10 Essential (primary) hypertension; E11.9 Type 2 diabetes mellitus without complications; E78.5 Hyperlipidemia, unspecified; I95.9 Hypotension, unspecified; D64.9 Anemia, unspecified; N40.0 Benign prostatic hyperplasia without lower urinary tract symptoms; M19.90 Unspecified osteoarthritis, unspecified site; Z79.4 Long term (current) use of insulin; Z79.01 Long term (current) use of anticoagulants; Z79.82 Long term (current) use of aspirin; Z79.899 Other long term (current) drug therapy; Z96.651 Presence of right artificial knee joint; Z98.84 Bariatric surgery status
CPT/HCPCS: J0131; J1100; J1650

== ENCOUNTER 2020-07-12 03:18 | Inpatient (IN) | payer MEDICARE ==
[2020-07-12] VITALS (20 sets, daily range): BP systolic 86–148; BP diastolic 48–72
[~2020-07-12] VITALS: Ht 190.5 cm; Wt 95.3 kg
[~2020-07-12 03:18] MED LIST changes: +OXYCODO-APAP1 TA2 PO
[2020-07-12 04:34] LABS: IMMATURE GRANULOCYTES 1.7 % (0.0-5.0); MEAN CELL VOLUME 74.7 fL CALC (80.0-100.0); MEAN CORPUSCULAR HGB 21.3 pG CALC (26.0-32.0); MEAN CORPUSCULAR HGB CONC 28.5 g/dL CAL (32.0-36.0); NEUT# 6.3 thou/uL (1.82-7.42); RED BLOOD COUNT 3.95 mill/uL (4.70-6.10); RED CELL DISTRI WIDTH 18.2 % (11.5-15.5)
[2020-07-12 04:35] LABS: HEMATOCRIT 29.5 % (39.0-50.0); HEMOGLOBIN 8.4 g/dl (14.0-18.0)
[2020-07-12 04:50] LABS: ALBUMIN 3.1 g/dL (3.2-5.0); ALKALINE PHOSPHATASE 155 u/l (38-126); ANION GAP 9 (6-22 (CALC)); BUN 29 mg/dL (8-23); BUN/CREATININE RATIO 59 (12-20 (CALC)); CARBON DIOXIDE 28 mmol/l (22-30); CHLORIDE 103 mmol/l (95-108); CREATININE 0.5 mg/dL (0.7-1.3); GFR > 60 ML/MIN (>=60 (CALC)); GFR FOR AFR.AMER. > 60 ML/MIN (>=60 (CALC)); INTERNATIONAL NORMALIZED RATIO 1.1 RATIO (0.7-1.3); PROTHROMBIN TIME 11.2 SECONDS (9.0-12.5); SGOT/AST 28 u/l (19-48); SODIUM 136 mmol/l (137-146); TOTAL PROTEIN 6.1 g/dL (6.3-8.2)
[2020-07-12 04:52] LABS: BILIRUBIN, TOTAL 0.2 mg/dL (0.0-1.4)
[2020-07-12 08:30] LABS: HEMATOCRIT 26.3 % (39.0-50.0); HEMOGLOBIN 7.4 g/dl (14.0-18.0); IMMATURE GRANULOCYTES 2.5 % (0.0-5.0); MEAN CORPUSCULAR HGB 22.5 pG CALC (26.0-32.0); MEAN CORPUSCULAR HGB CONC 28.1 g/dL CAL (32.0-36.0); NEUT# 4.69 thou/uL (1.82-7.42); RED BLOOD COUNT 3.29 mill/uL (4.70-6.10); RED CELL DISTRI WIDTH 18.7 % (11.5-15.5)
[2020-07-12 08:48] LABS: MEAN CELL VOLUME 79.9 fL CALC (80.0-100.0)
[2020-07-12 09:21] LABS: INTERNATIONAL NORMALIZED RATIO 1.1 RATIO (0.7-1.3); PROTHROMBIN TIME 11.2 SECONDS (9.0-12.5)
[2020-07-12 10:34] LABS: HEMATOCRIT 28.2 % (39.0-50.0); HEMOGLOBIN 8.1 g/dl (14.0-18.0)
[2020-07-12 18:55] LABS: HEMATOCRIT 28.9 % (39.0-50.0); HEMOGLOBIN 8.3 g/dl (14.0-18.0)
== END 2020-07-12 21:10 | disposition short-term general hospital (02) | DRG 378 ==
LOC: ED 03:18 → ED-I 03:50 → ED 03:50 → ICU 05:11
PROVIDERS: Emergency Medicine; Internal Medicine; ADMIT Surgery; ATTEND Surgery
PROC: 30233N1 Transfusion of Nonautologous Red Blood Cells into Peripheral Vein, Percutaneous Approach (ICD-10-PCS; principal; 2020-07-12)
PROC: 30233N1 Transfusion of Nonautologous Red Blood Cells into Peripheral Vein, Percutaneous Approach (ICD-10-PCS; 2020-07-12)
PROC: 0DCN8ZZ Extirpation of Matter from Sigmoid Colon, Via Natural or Artificial Opening Endoscopic (ICD-10-PCS; 2020-07-12)
PROC: 0DJ08ZZ Inspection of Upper Intestinal Tract, Via Natural or Artificial Opening Endoscopic (ICD-10-PCS; 2020-07-12)
DX: K92.1 Melena (principal); D62 Acute posthemorrhagic anemia; I10 Essential (primary) hypertension; E11.9 Type 2 diabetes mellitus without complications; I48.91 Unspecified atrial fibrillation; E78.5 Hyperlipidemia, unspecified; Z98.84 Bariatric surgery status; Z79.4 Long term (current) use of insulin; Z90.49 Acquired absence of other specified parts of digestive tract; Z20.822 Contact with and (suspected) exposure to COVID-19
CPT/HCPCS: P9016

== ENCOUNTER 2020-08-02 12:28 | Emergency (ER) | payer MEDICARE ==
[~2020-08-02] VITALS: Ht 190.5 cm; Wt 95.9 kg
[2020-08-02 13:25] LABS: HEMATOCRIT 36.2 % (39.0-50.0); HEMOGLOBIN 10.4 g/dl (14.0-18.0); IMMATURE GRANULOCYTES 0.5 % (0.0-5.0); MEAN CELL VOLUME 80.4 fL CALC (80.0-100.0); MEAN CORPUSCULAR HGB 23.1 pG CALC (26.0-32.0); MEAN CORPUSCULAR HGB CONC 28.7 g/dL CAL (32.0-36.0); NEUT# 4.62 thou/uL (1.82-7.42); RED BLOOD COUNT 4.5 mill/uL (4.70-6.10); RED CELL DISTRI WIDTH 20.7 % (11.5-15.5)
[2020-08-02 13:26] LABS: URINE BILIRUBIN - DIPSTICK NEGATIVE (NEGATIVE); URINE BLOOD DIPSTICK NEGATIVE (NEGATIVE); URINE COLOR YELLOW; URINE GLUCOSE - DIPSTICK >=1000 mg/dL (NEGATIVE); URINE KETONE NEGATIVE (NEGATIVE); URINE LEUK ESTERASE NEGATIVE (NEGATIVE); URINE NITRITE - DIPSTICK NEGATIVE (Negative); URINE PH 5.5 (4.5-8.0); URINE PROTEIN - DIPSTICK TRACE mg/dL (NEG-TRACE); URINE SPECIFIC GRAVITY 1.015; URINE UROBILINOGEN - DIPSTICK 0.2 E.U./dL (0.2)
[2020-08-02 13:43] LABS: ALBUMIN 3.6 g/dL (3.2-5.0); ALKALINE PHOSPHATASE 132 u/l (38-126); ANION GAP 12 (6-22 (CALC)); BUN 26 mg/dL (8-23); BUN/CREATININE RATIO 52 (12-20 (CALC)); CARBON DIOXIDE 30 mmol/l (22-30); CHLORIDE 96 mmol/l (95-108); CREATININE 0.5 mg/dL (0.7-1.3); GFR > 60 ML/MIN (>=60 (CALC)); GFR FOR AFR.AMER. > 60 ML/MIN (>=60 (CALC)); LIPASE 55 u/l (23-300); POTASSIUM 4.1 mmol/l (3.5-5.1); SGOT/AST 23 u/l (19-48); SODIUM 134 mmol/l (137-146); TOTAL PROTEIN 6.9 g/dL (6.3-8.2)
[2020-08-02 13:46] LABS: BILIRUBIN, TOTAL 0.6 mg/dL (0.0-1.4)
[2020-08-02] MEDS ORDERED: LASIX 40 MG TAB40 MG PO (14:53)
[2020-08-02 15:31] VITALS: BP 120/70
== END 2020-08-02 15:32 | disposition home or self-care (01) ==
LOC: ED 12:28
PROVIDERS: Family Medicine
DX: R10.31 Right lower quadrant pain (principal); R10.32 Left lower quadrant pain; I11.0 Hypertensive heart disease with heart failure; I50.9 Heart failure, unspecified; I48.91 Unspecified atrial fibrillation; E11.9 Type 2 diabetes mellitus without complications; E78.5 Hyperlipidemia, unspecified; Z98.84 Bariatric surgery status; Z79.4 Long term (current) use of insulin; Z90.49 Acquired absence of other specified parts of digestive tract
CPT/HCPCS: Q9967

== ENCOUNTER 2020-08-16 06:37 | Emergency (ER) | payer MEDICARE ==
[~2020-08-16] VITALS: Ht 190.5 cm; Wt 135.9 kg
[~2020-08-16 06:37] MED LIST changes: +LASIX 40 MG TAB40 MG PO
[2020-08-16 07:43] LABS: HEMATOCRIT 36.8 % (39.0-50.0); HEMOGLOBIN 10.8 g/dl (14.0-18.0); IMMATURE GRANULOCYTES 0.3 % (0.0-5.0); MEAN CELL VOLUME 79.5 fL CALC (80.0-100.0); MEAN CORPUSCULAR HGB 23.3 pG CALC (26.0-32.0); MEAN CORPUSCULAR HGB CONC 29.3 g/dL CAL (32.0-36.0); NEUT# 7.69 thou/uL (1.82-7.42); RED BLOOD COUNT 4.63 mill/uL (4.70-6.10); RED CELL DISTRI WIDTH 20.4 % (11.5-15.5)
[2020-08-16 07:54] LABS: ANION GAP 14 (6-22 (CALC)); BILIRUBIN, TOTAL 0.7 mg/dL (0.0-1.4); BUN 38 mg/dL (8-23); BUN/CREATININE RATIO 82 (12-20 (CALC)); CARBON DIOXIDE 26 mmol/l (22-30); CHLORIDE 97 mmol/l (95-108); CREATININE 0.5 mg/dL (0.7-1.3); GFR > 60 ML/MIN (>=60 (CALC)); GFR FOR AFR.AMER. > 60 ML/MIN (>=60 (CALC)); POTASSIUM 4.2 mmol/l (3.5-5.1); SODIUM 133 mmol/l (137-146); TOTAL PROTEIN 7.6 g/dL (6.3-8.2)
[2020-08-16 07:57] LABS: ALKALINE PHOSPHATASE 286 u/l (38-126); SGOT/AST 187 u/l (19-48)
[2020-08-16 08:32] LABS: URINE BILIRUBIN - DIPSTICK NEGATIVE (NEGATIVE); URINE BLOOD DIPSTICK TRACE-LYSED (NEGATIVE); URINE COLOR YELLOW; URINE GLUCOSE - DIPSTICK 500 mg/dL (NEGATIVE); URINE KETONE NEGATIVE (NEGATIVE); URINE LEUK ESTERASE NEGATIVE (NEGATIVE); URINE NITRITE - DIPSTICK NEGATIVE (Negative); URINE PROTEIN - DIPSTICK TRACE mg/dL (NEG-TRACE); URINE UROBILINOGEN - DIPSTICK 0.2 E.U./dL (0.2)
[2020-08-16] MEDS ORDERED: DOXYCYC MONO100 M2 PO (09:57)
[2020-08-16] MEDS ORDERED: AMOX/K CLAV875 M1 PO (09:57)
[2020-08-16 10:39] VITALS: BP 120/70
== END 2020-08-16 10:39 | disposition home or self-care (01) ==
LOC: ED 06:37
PROVIDERS: Family Medicine
DX: J18.9 Pneumonia, unspecified organism (principal); R79.89 Other specified abnormal findings of blood chemistry; I10 Essential (primary) hypertension; E11.9 Type 2 diabetes mellitus without complications; I48.91 Unspecified atrial fibrillation; E78.5 Hyperlipidemia, unspecified; Z98.84 Bariatric surgery status; Z87.01 Personal history of pneumonia (recurrent); Z79.4 Long term (current) use of insulin; Z86.16 Personal history of COVID-19
CPT/HCPCS: Q9967

== ENCOUNTER 2020-08-30 20:05 | Observation (INO) | payer MEDICARE ==
[~2020-08-30] VITALS: Ht 190.5 cm; Wt 88.0 kg
[~2020-08-30 20:05] MED LIST changes: +AMOX/K CLAV875 M1 PO; -BABY ASPIRIN81 MG PO; +LO-DOSE ASA81 MG PO
--- NOTE | 2020-08-30 20:05 | NUR ---
PT TO ROOM # 15 FOR BEDSIDE TRIAGE VIA EMS STRETCHER.
--- NOTE | 2020-08-30 20:20 | NUR ---
LABS AND URINE COLLECTED PER ORDER. PT TOLERATED WELL. PT REQUESTING TO USE URINAL CONSTANTLY, AND TO SIT UP FOR COMFORT. DISCUSSED IMPORTANCE OF REAMINING IN BED FOR SAFETY. PT REQUESTING TO STAND UP. CALL LIGHT PROVIDED TO PT. COMPUTER TESTER IN [facility].
[2020-08-30 20:51] LABS: HEMATOCRIT 40.8 % (39.0-50.0); HEMOGLOBIN 11.8 g/dl (14.0-18.0); IMMATURE GRANULOCYTES 0.8 % (0.0-5.0); MEAN CELL VOLUME 79.4 fL CALC (80.0-100.0); MEAN CORPUSCULAR HGB CONC 28.9 g/dL CAL (32.0-36.0); NEUT# 4.94 thou/uL (1.82-7.42); RED BLOOD COUNT 5.14 mill/uL (4.70-6.10); RED CELL DISTRI WIDTH 19.8 % (11.5-15.5)
--- NOTE | 2020-08-30 20:53 | NUR ---
PT TO RADIOLOGY VIA WC IN STABLE CONDITION.
[2020-08-30 21:04] LABS: ALBUMIN 4.2 g/dL (3.2-5.0); BILIRUBIN, TOTAL 0.5 mg/dL (0.0-1.4); BUN 33 mg/dL (8-23); BUN/CREATININE RATIO 67 (12-20 (CALC)); CHLORIDE 93 mmol/l (95-108); CREATININE 0.5 mg/dL (0.7-1.3); ETHYL ALCOHOL 0 mg/dl (0-30); GFR > 60 ML/MIN (>=60 (CALC)); GFR FOR AFR.AMER. > 60 ML/MIN (>=60 (CALC)); POTASSIUM 4.2 mmol/l (3.5-5.1); SODIUM 135 mmol/l (137-146); TOTAL PROTEIN 7.7 g/dL (6.3-8.2)
[2020-08-30 21:07] LABS: ALKALINE PHOSPHATASE 138 u/l (38-126); ANION GAP 13 (6-22 (CALC)); CARBON DIOXIDE 33 mmol/l (22-30); PROTHROMBIN TIME 10.4 SECONDS (9.0-12.5); SGOT/AST 35 u/l (19-48)
--- NOTE | 2020-08-30 21:22 | NUR ---
PT RETURNS FROM RADIOLOGY IN STABLE CONDITION. DISCUSSED WAIT TIME FOR RESULTS. VERALIZED UNDERSTANDING. CALL LIGHT PROVIDED. DENIES ANY NEEDS.
--- NOTE | 2020-08-30 22:05 | NUR ---
PT MEDICATED FOR PAIN PER REQUEST. PT TOLERATED WELL. DISCUSSED CONT TEMO TIME FOR RESULTS. VERBALIZED UNDERSTANDING. PT CONTINUALLY REQUESTING TO SIT UP AND STAND. DISCUSSED SAFETY MEASURES WITH PT,
--- NOTE | 2020-08-30 23:00 | NUR ---
PT REPORTS DECREASE IN PAIN LEVEL TO 7/10. PT CONTINUALLY SITTING UP AND DOWN AND CHANGING POSITIONS FOR COMFORT. REEDUCATED PT ON FALL PRECAUTIONS AND SAFETY MEASURES PT IS A FALL RISK. PT STATES " I NEED TO MOVE MY BACK IS KILLING ME." CALL LIGHT PROVIDED. VERBALIZES NO NEEDS AT THIS TIME.
--- NOTE | 2020-08-30 23:32 | NUR ---
REPORT GIVEN TO AKASH YOUNG
--- NOTE | 2020-08-30 23:40 | NUR ---
Admission Note Report Given to: AKASH LINARES Transported by: X Wheelchair Stretcher Transported with: X Nurse Transporter X Patent IV O2 X Ase Master Mechanic Location: ICU X MS2 PT TRANSPORTED TO MS 291 VIA WC IN STABLE CONDITION.
[2020-08-30 23:41] VITALS: BP 150/92
--- NOTE | 2020-08-30 23:41 | NUR ---
PT RECEIVED FROM ED TO ROOM 291. ARRIVES VIA STRETCHER ACCOMPANIED BY RAY LINARES. PT AMBULATORY TO BED. GAIT UNSTEADY. PT DENIES PAIN AT THIS TIME. ORIENTED TO UNIT, ROOM, CALL ALFRED, LIGHTS, TV. ICE WATER PROVIDED. CALL ALFRED WITHIN REACH. AGREES TO CALL PRN.
--- NOTE | 2020-08-31 00:05 | NUR ---
PHYSICAL ASSESMENT COMPLETE. PT GIVEN SCHEDULED MEDICATIONS AND PRN MEDICATION ADMINISTERED, SEE E-MAR. PT DENIESPROVIDED SNACKS. PLAN OF CARE REVIEWED, PT DENIES QUESTIONS, VERBALIZES UNDERSTANDING. ITEMS WITHIN REACH, BED LOCKED IN LOW POSITION W/ BEDRAILS UP X2. CALL ALFRED WITHIN REACH, AGREES TO CALL PRN.
[2020-08-31 04:00] VITALS: BP 120/79
--- NOTE | 2020-08-31 06:02 | NUR ---
PT RESTING BEDSIDE, PT STATES THEY ARE TOO MUCH PAIN TO SLEEP. RESP EVEN AND UNLABORED. PRN PAIN MEDICATION GIVEN AT 0330. CALL LIGHT IN REACH, CONTINUE TO MONITOR.
--- NOTE | 2020-08-31 07:56 | NUR ---
Patient is screened for PT intervention and he may benefit from consult if medical agrees
[2020-08-31 08:15] VITALS: BP 134/80
--- NOTE | 2020-08-31 08:45 | NUR ---
PT SITTING UP ON THE SIDE OF THE BED AWAITING BREAKFAST. HYPERVERBAL. VS ARE WNL. C/O PAIN, GIVEN PRN TYLENOL FOR BREAKTHROUGH. APPEARS IN NO ACUE DISTRESS.
--- NOTE | 2020-08-31 09:40 | NUR ---
PT AMBULATING IN THE ROOM. EDUCATED ON CALLING FOR ASSISTANCE AND FALL PRECAUTIONS. DEMONSTRATED VERBAL UNDERSTANDING. NO SOB INDICATED. IV SALINE SITE IS PATENT. PT STANTS TYLENOL SOMEWHAT EFFECTIVE. CHEST XRAY RESULTS PENDING.
[2020-08-31 10:30] VITALS: BP 110/62
--- NOTE | 2020-08-31 10:48 | NUR ---
PT DISCHARGED FROM [facility]. SPOUSE PROVIDING TRANSPORTATION. EDUCATED ON DISCHARGE MEDS AND FALL PREVENTION TECHNIQUES. CONTINUES ON AIR/CONTACT PRECAUTIONS. ASYSMPTOMATIC. APPEARS IN NO ACUTE DISTRESS. DISCHARGE PAPERWORK TAKEN WITH. GIVEN PRN PAIN MED PRIOR TO LEAVE.
== END 2020-08-31 10:47 | disposition home health service (06) ==
LOC: ED 20:05 → ED-I 22:20 → ED 22:37 → MS2 22:38
PROVIDERS: Emergency Medicine; ADMIT Internal Medicine; ATTEND Internal Medicine
DX: S00.03XA Contusion of scalp, initial encounter (principal); U07.1 COVID-19; I10 Essential (primary) hypertension; I48.91 Unspecified atrial fibrillation; E11.9 Type 2 diabetes mellitus without complications; E78.5 Hyperlipidemia, unspecified; W18.39XA Other fall on same level, initial encounter; Y92.009 Unspecified place in unspecified non-institutional (private) residence as the place of occurrence of the external cause; Z98.84 Bariatric surgery status; Z79.4 Long term (current) use of insulin; Z79.01 Long term (current) use of anticoagulants

== ENCOUNTER 2020-09-17 15:28 | Observation (INO) | payer MEDICARE ==
[~2020-09-17] VITALS: Ht 190.5 cm; Wt 92.0 kg
--- NOTE | 2020-09-17 15:28 | NUR ---
PATIENT TO ROOM VIA EMS AND PHYSICIAN NOTIFIED OF PATIENT STATUS
--- NOTE | 2020-09-17 16:00 | NUR ---
Reassessment of patient completed. No distress noted.
[2020-09-17 16:13] LABS: HEMATOCRIT 36.8 % (39.0-50.0); HEMOGLOBIN 10.8 g/dl (14.0-18.0); IMMATURE GRANULOCYTES 0.2 % (0.0-5.0); MEAN CELL VOLUME 79.5 fL CALC (80.0-100.0); MEAN CORPUSCULAR HGB 23.3 pG CALC (26.0-32.0); MEAN CORPUSCULAR HGB CONC 29.3 g/dL CAL (32.0-36.0); NEUT# 10.98 thou/uL (1.82-7.42); RED BLOOD COUNT 4.63 mill/uL (4.70-6.10); RED CELL DISTRI WIDTH 19.5 % (11.5-15.5)
[2020-09-17 16:35] LABS: ALBUMIN 3.5 g/dL (3.2-5.0); ALKALINE PHOSPHATASE 167 u/l (38-126); ANION GAP 9 (6-22 (CALC)); BILIRUBIN, TOTAL 0.6 mg/dL (0.0-1.4); BUN 27 mg/dL (8-23); BUN/CREATININE RATIO 66 (12-20 (CALC)); CARBON DIOXIDE 28 mmol/l (22-30); CHLORIDE 96 mmol/l (95-108); CREATININE 0.4 mg/dL (0.7-1.3); GFR > 60 ML/MIN (>=60 (CALC)); GFR FOR AFR.AMER. > 60 ML/MIN (>=60 (CALC)); POTASSIUM 3.5 mmol/l (3.5-5.1); SGOT/AST 39 u/l (19-48); SODIUM 129 mmol/l (137-146); TOTAL PROTEIN 6.7 g/dL (6.3-8.2)
[2020-09-17 16:47] LABS: MYOGLOBIN 96 ng/mL (0 - 121)
--- NOTE | 2020-09-17 16:52 | NUR ---
TWO SETS OF BLOOD CULTURES DRAWN.
[2020-09-17 17:07] LABS: URINE BILIRUBIN - DIPSTICK NEGATIVE (NEGATIVE); URINE BLOOD DIPSTICK SMALL (NEGATIVE); URINE COLOR YELLOW; URINE GLUCOSE - DIPSTICK >=1000 mg/dL (NEGATIVE); URINE KETONE NEGATIVE (NEGATIVE); URINE LEUK ESTERASE NEGATIVE (NEGATIVE); URINE PROTEIN - DIPSTICK 30 mg/dL (NEG-TRACE); URINE SPECIFIC GRAVITY 1.015; URINE UROBILINOGEN - DIPSTICK 0.2 E.U./dL (0.2)
[2020-09-17 17:09] LABS: URINE NITRITE - DIPSTICK NEGATIVE (Negative)
[2020-09-17 17:16] LABS: URINE RBC 0-2 RBC/hpf (0-5); URINE SQUAMOUS EPITHELIAL CELL RARE EPI/hpf (0-FEW)
--- NOTE | 2020-09-17 19:06 | NUR ---
CARE ASSUMED, PT AWARE OF PLANNED ADMISSION
--- NOTE | 2020-09-17 19:32 | NUR ---
PT ASKING ABOUT ROOM ADN WHEN HE WILL GO UP, EDUCATED REGARDING ADMISSION PROCESS. VERBALIZES UNDERSTANDING.
--- NOTE | 2020-09-17 19:57 | NUR ---
WATER REQUESTED AND PROVIDED, AWAITING NURSE TO CALL FOR REPORT
--- NOTE | 2020-09-17 20:04 | NUR ---
REPORT CALLED TO RAY PEREZ ON MED SURG.
--- NOTE | 2020-09-17 20:08 | NUR ---
PT TRASNPORTED TO MED SURG VIA STRETCHER, ALL BELONGINGS WITH PT
[2020-09-17 20:15] VITALS: BP 138/81
--- NOTE | 2020-09-17 20:20 | NUR ---
PT ARRIVED ON FLOOR FOR ADMINSSION, ESCORTED BY ER STAFF VIA W/C. ORIENTED PT TO ROOM SURROUNDINGS, HOW TO CALL FOR HELP, AND HOW TO USE TV CONTROL AND LIGHTS. LUNGS DIMISHED THROUGHOUT. BREATHING EVEN AND UNLABORED. IV SITE #18 TO THE RAC, FLUSHES EASILY. IV SITE TO #20 TO LFA, FLUSES EASILY. BOTH SITES ARE SALINE LOCKED AND DO NOT SHOW ANY S/S OF INFECTION OR INFILTRATION. CARDIAC RHYTHM IS IRREGULAR WITH AFIB. NO COMPLICATIONS ASSOCIATED WITH CARDIAC RHYTHM. SKIN INTACT, ONEL BOOT NOTED TO LLE, APPLIED BY HOME HEALTH. PULSES PALPABLE WITH THE EXCEPTION OF LLE WHERE PULSE CAN NOT BE ASSESSED D/T ONEL BOOT. WILL MONITOR.
[2020-09-17 23:51] VITALS: BP 121/68
--- NOTE | 2020-09-18 00:47 | NUR ---
PT CONTINUES TO C/O PAIN IN HIS TAILBONE, ADMINSTERED LORTAB AND APPLIED TOWEL AND ICE PACK TO TAILBONE. BREATHING EVEN AND UNLABORED. NO S/S OF DISTRESS NOTED. WILL MONITOR
[2020-09-18 04:15] VITALS: BP 135/83
--- NOTE | 2020-09-18 04:47 | NUR ---
PT RESTING QUIETLY AT THIS TIME. BREATHING EVEN AND UNLABORED. NO COMPLAINTS VOICED. WILL CONTINUE TO MONITOR.
[2020-09-18 08:00] VITALS: BP 168/82
--- NOTE | 2020-09-18 09:00 | NUR ---
PT RESTING IN THE BEDSIDE CHAIR. AXOX3, O2 IN PLACE. INSTRUCTED ON MEDS AND PAIN MEDICATION. CALL LIGHT IN REACH, WILL CONTINUE TO MONIOTR.
--- NOTE | 2020-09-18 10:15 | NUR ---
C/O PAIN MED PER ORDER. WILL CONTINUE TO MONIOTR THE PATIENT.
[2020-09-18 10:32] LABS: HEMATOCRIT 40.1 % (39.0-50.0); HEMOGLOBIN 11.6 g/dl (14.0-18.0); IMMATURE GRANULOCYTES 0.4 % (0.0-5.0); MEAN CORPUSCULAR HGB 23.2 pG CALC (26.0-32.0); MEAN CORPUSCULAR HGB CONC 28.9 g/dL CAL (32.0-36.0); NEUT# 10.12 thou/uL (1.82-7.42); RED BLOOD COUNT 5.01 mill/uL (4.70-6.10); RED CELL DISTRI WIDTH 19.8 % (11.5-15.5)
[2020-09-18 10:35] VITALS: BP 119/69
[2020-09-18 10:50] LABS: ANION GAP 10 (6-22 (CALC)); BUN 17 mg/dL (8-23); BUN/CREATININE RATIO 47 (12-20 (CALC)); CARBON DIOXIDE 29 mmol/l (22-30); CHLORIDE 94 mmol/l (95-108); CREATININE 0.4 mg/dL (0.7-1.3); GFR > 60 ML/MIN (>=60 (CALC)); GFR FOR AFR.AMER. > 60 ML/MIN (>=60 (CALC)); POTASSIUM 3.5 mmol/l (3.5-5.1); SODIUM 130 mmol/l (137-146)
[2020-09-18 11:09] LABS: C-REACTIVE PROTEIN 18.7 mg/dL (0-0.9)
[2020-09-18] MEDS ORDERED: AMOX/K CLAV875 M1 PO (11:31)
--- NOTE | 2020-09-18 12:09 | NUR ---
INFORMED THE PATIENT HIS MEDS HAVE BEEN SENT TO THE PHARMACY FOR HIS TO CULINARY ARTS INSTRUCTOR.
--- NOTE | 2020-09-18 13:23 | NUR ---
DISCHARGE ORDERS GIVEN UNDERSTOOD AND SIGNED BY THE PT. PT LEFT TO GO TO HIS OWN HOME WITH HH. PT LEFT VIA WHEEL CHAIR. TO PICK HIM UP AT OUTSIDE OF THE ER.
== END 2020-09-18 13:27 | disposition home health service (06) ==
LOC: ED 15:28 → ED-I 18:41 → ED 18:53 → MS2 18:54
PROVIDERS: Emergency Medicine; Nurse Practitioner; ADMIT Internal Medicine; ATTEND Internal Medicine
DX: I48.20 Chronic atrial fibrillation, unspecified (principal); J15.9 Unspecified bacterial pneumonia; U07.1 COVID-19; T44.7X6A Underdosing of beta-adrenoreceptor antagonists, initial encounter; I10 Essential (primary) hypertension; E11.9 Type 2 diabetes mellitus without complications; E78.5 Hyperlipidemia, unspecified; N40.0 Benign prostatic hyperplasia without lower urinary tract symptoms; R16.2 Hepatomegaly with splenomegaly, not elsewhere classified; K59.00 Constipation, unspecified; Z91.128 Patient's intentional underdosing of medication regimen for other reason; Z98.84 Bariatric surgery status; Z79.84 Long term (current) use of oral hypoglycemic drugs; Z79.01 Long term (current) use of anticoagulants; Z87.891 Personal history of nicotine dependence
CPT/HCPCS: G0378; Q9967

== ENCOUNTER 2021-07-23 14:37 | Observation (INO) | payer MEDICARE ==
[~2021-07-23] VITALS: Ht 190.5 cm; Wt 93.0 kg
[~2021-07-23 14:37] MED LIST changes: +GLIPIZIDE5 M2 PO; -GLIPIZIDE5 MG PO; +LANTUS100 UNIT SC; +METFORMIN HCL1000 MG PO; +VITAMIN D31000 UNI1 PO; -VITAMIN D32000 UNI2 PO
--- NOTE | 2021-07-23 14:37 | NUR ---
PT TO ROOM VIA EMS.
--- NOTE | 2021-07-23 15:07 | NUR ---
PATIENT WITH REDNESS TO LEFT LOWER LEG, HOT TO THE TOUCH WITH ULCERATION TO HEEL
[2021-07-23 15:17] LABS: URINE BILIRUBIN - DIPSTICK NEGATIVE (NEGATIVE); URINE BLOOD DIPSTICK SMALL (NEGATIVE); URINE COLOR YELLOW; URINE GLUCOSE - DIPSTICK >=1000 mg/dL (NEGATIVE); URINE KETONE NEGATIVE (NEGATIVE); URINE LEUK ESTERASE NEGATIVE (NEGATIVE); URINE PH 5.5 (4.5-8.0); URINE PROTEIN - DIPSTICK 30 mg/dL (NEG-TRACE); URINE SPECIFIC GRAVITY 1.015; URINE UROBILINOGEN - DIPSTICK 0.2 E.U./dL (0.2)
[2021-07-23 15:20] LABS: URINE NITRITE - DIPSTICK NEGATIVE (Negative)
[2021-07-23 15:29] LABS: URINE RBC 0-2 RBC/hpf (0-5)
[2021-07-23 15:38] LABS: HEMOGLOBIN 13.6 g/dl (14.0-18.0); IMMATURE GRANULOCYTES 0.4 % (0.0-5.0); MEAN CELL VOLUME 84.5 fL CALC (80.0-100.0); MEAN CORPUSCULAR HGB 26.7 pG CALC (26.0-32.0); MEAN CORPUSCULAR HGB CONC 31.6 g/dL CAL (32.0-36.0); NEUT# 7.49 thou/uL (1.82-7.42); RED BLOOD COUNT 5.09 mill/uL (4.70-6.10); RED CELL DISTRI WIDTH 14.9 % (11.5-15.5)
[2021-07-23 15:49] LABS: ALBUMIN 4.2 g/dL (3.2-5.0); AMYLASE 70 u/l (30-110); ANION GAP 13 (6-22 (CALC)); BILIRUBIN, TOTAL 0.7 mg/dL (0.0-1.4); BUN 29 mg/dL (8-23); BUN/CREATININE RATIO 42 (12-20 (CALC)); CARBON DIOXIDE 35 mmol/l (22-30); CHLORIDE 90 mmol/l (95-108); CREATININE 0.7 mg/dL (0.7-1.3); GFR > 60 ML/MIN (>=60 (CALC)); GFR FOR AFR.AMER. > 60 ML/MIN (>=60 (CALC)); LIPASE 20 u/l (23-300); POTASSIUM 3.4 mmol/l (3.5-5.1); SODIUM 135 mmol/l (137-146)
[2021-07-23 15:54] LABS: ALKALINE PHOSPHATASE 205 u/l (38-126); SGOT/AST 68 u/l (19-48); TOTAL PROTEIN 8.5 g/dL (6.3-8.2)
[2021-07-23 16:04] LABS: ACT PARTIAL THROMBO TIME 31.7 SECONDS (20.0-32.5); PROTHROMBIN TIME 10.9 SECONDS (9.0-12.5)
--- NOTE | 2021-07-23 17:19 | NUR ---
REPORT TO GABBIE LINARES
--- NOTE | 2021-07-23 17:30 | NUR ---
PT ARRIVED TO THE FLOOR VIA WHEELCHAIR AND ONE PERSON ASSISTANCE FROM THE ER. PT AMBULATORY WITH ONE PERSON STAND TURN AND PIVOT. RIGHTS AND RESPONSIBILITIES REVIEWED, CALL LIGHT GONE OVER STATES UNDERSTANDING FALL CONTRACT SIGNED. PT ASSESSMENT AND HISTORY PREFORMED. IV VANCOMYCIN INFUSING AT THIS TIME. PT VSS. BS IS 59 DOES NOT DISPLAY ANY S/S OF HYPOGLYCEMIA. GIVEN MEAL TRAY. PT TOLERATING PO MEAL. PT STATES HE IS IN PAIN. TYLENOL ORDER. STATES HE TAKES OXYCODONE AT HOME. WILL REVIEW MED REC AND NOTIFY THE MD.
[2021-07-23 17:38] VITALS: BP 123/58
--- NOTE | 2021-07-23 17:38 | NUR ---
NURSE NOTIFIED OF PATIENT GLUCOSE METER AT 59.
[2021-07-23 19:00] VITALS: BP 142/68
--- NOTE | 2021-07-23 20:00 | NUR ---
PATIENT ASSEMENT COMPLETED AT THIS TIME. LEFT FOOT ULCER DRESSED [id number] ALGINATE, 4X4 GAUZE PADDING AND WRAPPED IN KERLIX.
[2021-07-24] VITALS: BP 125/71
--- NOTE | 2021-07-24 00:50 | NUR ---
ER CALL RECEIVED PT, RUNNING A FIB AT 83 BPM. PT HAS HX OF A FIB.
[2021-07-24 04:00] VITALS: BP 138/74
[2021-07-24 04:53] LABS: HEMATOCRIT 37.9 % (39.0-50.0); MEAN CELL VOLUME 83.5 fL CALC (80.0-100.0); MEAN CORPUSCULAR HGB 26.4 pG CALC (26.0-32.0); MEAN CORPUSCULAR HGB CONC 31.7 g/dL CAL (32.0-36.0); RED BLOOD COUNT 4.54 mill/uL (4.70-6.10); RED CELL DISTRI WIDTH 15.3 % (11.5-15.5)
[2021-07-24 05:25] LABS: ANION GAP 10 (6-22 (CALC)); BUN 22 mg/dL (8-23); BUN/CREATININE RATIO 48 (12-20 (CALC)); CARBON DIOXIDE 32 mmol/l (22-30); CHLORIDE 92 mmol/l (95-108); CREATININE 0.5 mg/dL (0.7-1.3); GFR > 60 ML/MIN (>=60 (CALC)); GFR FOR AFR.AMER. > 60 ML/MIN (>=60 (CALC)); MAGNESIUM 1.7 mg/dL (1.6-2.3); POTASSIUM 2.9 mmol/l (3.5-5.1); SODIUM 131 mmol/l (137-146)
--- NOTE | 2021-07-24 06:27 | NUR ---
PATIENT MEDICATED FOR PAIN 11/25.
--- NOTE | 2021-07-24 08:00 | NUR ---
ASSESSMENT AND VITALS ALLOWED AT THIS TIME. PT ABLE TO EAT BREAKFAST NO FEELING OF N/V. STATES PAIN ON RIGHT LOWER FOOT. DRESSING CDI. 20G LFA LEAKED AND REPLACED WITH 22G LFA. SL FLUSHED WITH GOOD BLOOD RETURN. LUNG SOUNDS ARE DIMINISHED UPPER/LOWER LOBES ANTERIOR AND POSTERIOR. HEART SOUNDS ARE IRREGULAR. TELE MONITOR IN PLACE. CONTINOUSMONITORING BY ED. BOWEL SOUNDS ACTIVE X4. PT A&OX3 BUT IS FORTGETFUL AT TIMES. FALL SAFTEY PRECAUTIONS IN PLACE. CALL LIGHT IS WITHIN REACH
[2021-07-24] MEDS ORDERED: JARDIANCE25 MG PO (09:35)
[2021-07-24] MEDS ORDERED: OXYCODONE10 M1 PO (09:38)
[2021-07-24] MEDS ORDERED: LYRICA75 MG PO (09:39)
[2021-07-24] MEDS ORDERED: K-TABS10 MEQ PO (09:39)
[2021-07-24] MEDS ORDERED: VOLTAREN1%GEL TOP (09:41)
[2021-07-24] MEDS ORDERED: XTAMPZA ER18 MG PO (09:42)
[2021-07-24] MEDS ORDERED: METOLAZONE5 MG PO (09:42)
[2021-07-24] MEDS ORDERED: XANAX0.25 MG PO (09:43)
[2021-07-24] MEDS ORDERED: LASIX 40 MG TAB40 MG PO (09:43)
[2021-07-24 10:46] VITALS: BP 118/63
--- NOTE | 2021-07-24 12:00 | NUR ---
PT COMPLAINS OF PAIN. PAIN MEDICATION GIVEN PER EMAR. DRESSING IS CDI. IV PATENT. TELE MONITOR IN PLACE. FALL/SAFETY PRECAUTIONS IN PLACE. CALL LIGHT WITHIN REACH
[2021-07-24 14:59] VITALS: BP 126/68
--- NOTE | 2021-07-24 15:45 | NUR ---
DRESSING CHANGED AND PHOTO WAS TAKEN AGAIN PER MD DE LA TORRE. PT TOLERATED WELL. WOUND IS RED/PINK WITH DARK CRUSTING. PHOTO WAS PUT ON PT CHART. LEG STILL PINK/RED WARM TO TOUCH. IV PATENT SL FLUSHED WITH NO RESISTANCE. FALL/SAFTEY PRECAUTIONS IN PLACE. CALL LIGHT WITHIN REACH.
--- NOTE | 2021-07-24 18:51 | NUR ---
CALLED [facility] AT THIS TIME. IN REGARDS TO PT POTASSIUM CHLORIDE MEDICATION NOT BEING PROFILED SPOKE TO ZECHARIAH. STATES HAVE NO RECIEVED ANYTHING BUT PRINT OUT SAID COMPLETED WILL RESEND AGAIN
--- NOTE | 2021-07-24 18:57 | NUR ---
RESENT FAX TO [facility] POTASSIUM CHLORIDE MEDICATION. TO [facility]
--- NOTE | 2021-07-24 19:00 | NUR ---
FAXED SENT BACK A NO RESPONSE. RESENT IT AGAIN
[2021-07-24 19:30] VITALS: BP 138/66
--- NOTE | 2021-07-24 19:31 | NUR ---
REPORT RECEIVED FROM Kenyatta PACHECO RN
--- NOTE | 2021-07-24 20:24 | NUR ---
PATIENT ASSEMENT COMPLETED, MEDICATIONS ADMINISTERED. 40MEQ PO POTASSIUM GIVEN AT THIS TIME. DOXYCICLINE HUNG BUT STOPPED DUE TO FAILED IV SITE. WRITTER ATTEMPTED X1 WITH NO SUCCESS.
--- NOTE | 2021-07-24 21:26 | NUR ---
PT MEDICATED PER EMAR, NEW IV ACCESS IN LEFT WRIST STARTED BY Brad OBREGON RN.
--- NOTE | 2021-07-24 23:50 | NUR ---
PT UP TO THE RESTROOM AT THIS TIME, PT MEDICATED WITH TYLENOL.
[2021-07-25] VITALS: BP 121/64
[2021-07-25 04:00] VITALS: BP 121/62
--- NOTE | 2021-07-25 04:36 | NUR ---
PT REQUESTING ANTIACIDS, MESSAGE SENT TO REGARDING REQUEST.
[2021-07-25 05:34] LABS: HEMATOCRIT 39.2 % (39.0-50.0); HEMOGLOBIN 12.1 g/dl (14.0-18.0); MEAN CELL VOLUME 84.7 fL CALC (80.0-100.0); MEAN CORPUSCULAR HGB 26.1 pG CALC (26.0-32.0); MEAN CORPUSCULAR HGB CONC 30.9 g/dL CAL (32.0-36.0); RED BLOOD COUNT 4.63 mill/uL (4.70-6.10); RED CELL DISTRI WIDTH 15.1 % (11.5-15.5)
[2021-07-25 06:00] LABS: BUN 18 mg/dL (8-23); BUN/CREATININE RATIO 51 (12-20 (CALC)); CARBON DIOXIDE 32 mmol/l (22-30); CHLORIDE 96 mmol/l (95-108); CREATININE 0.3 mg/dL (0.7-1.3); GFR > 60 ML/MIN (>=60 (CALC)); GFR FOR AFR.AMER. > 60 ML/MIN (>=60 (CALC)); MAGNESIUM 1.9 mg/dL (1.6-2.3); SODIUM 131 mmol/l (137-146)
[2021-07-25 06:01] LABS: ANION GAP 7 (6-22 (CALC)); POTASSIUM 3.9 mmol/l (3.5-5.1)
--- NOTE | 2021-07-25 07:00 | NUR ---
REPORT RECEIVED FROM MILAGROS RAMIREZ
--- NOTE | 2021-07-25 08:30 | NUR ---
PT RESTING AT BEDSIDE,A&O X3;VS OBTAINED AND ASSESSMENT COMPLETED;PT REPORTS LEFT FOOT PAIN RATING 8/10 ON THE PAIN SCALE AND REQUESTS PAIN MEDICATION, PT TO BE MEDICATED WITH PRN ROXICODONE 5MG PO PER ORDER;RESPIRATIONS EVEN AND UNLABORED ON RA,CLEAR LUNG SOUNDS;ABDOMEN SOFT ON PALPATION AND ACTIVE IN ALL 4 QUADRANTS;WEAK PEDAL PULSES WITH CELLULITIS NOTED TO LLE, DRESSING TO LEFT FOOT WOUND CDI;PHOTOGRAPHS IN CHART;TELE MONITORING IN PLACE;#22G TO LW FLUSHED AND PATENT, IV ABX STARTED PER ORDER;ACCUCHECK 145, NO COVERAGE NEEDED;PT DENIES ANY ADDITIONAL NEEDS AND IS ENCOURAGED TO CALL FOR ASSISTANCE IF NEEDED;FALL PRECAUTIONS IN PLACE WITH BED IN THE LOWEST POSITION AND CALL LIGHT IN REACH;WILL CONTINUE TO MONITOR
[2021-07-25 08:31] VITALS: BP 123/63
[2021-07-25 10:51] VITALS: BP 132/65
--- NOTE | 2021-07-25 11:12 | NUR ---
AND ARNOL ANRP AT BEDSIDE DISCUSSING POC.
--- NOTE | 2021-07-25 11:40 | NUR ---
PT RESTING IN SEMI FOWLERS POSITION;RESPIRATIONS EVEN AND UNLABORED ON RA;PT DENIES ANY CURRENT PAIN OR DISCOMFORTS;TELE MONITORING IN PLACE;IV SITE PATENT;ACCUCHECK 334, PT COVERED WITH SLIDING SCALE INSULIN PER ORDER;DRESSING TO LLE CDI;PT DENIES ANY ADDITIONAL NEEDS AND IS ENCOURAGED TO CALL FOR ASSISTANCE IF NEEDED;FALL PRECAUTIONS IN PLACE WITH BED IN THE LOWEST POSITION AND CALL LIGHT IN REACH;WILL CONTINUE TO MONITOR
[2021-07-25] MEDS ORDERED: KEFLEX500 MG PO (13:09)
--- NOTE | 2021-07-25 14:19 | NUR ---
ALL DISCHARGE INSTRUCTIONS PROVIDED AT THIS TIME;PT EDUCATED TO F/U WITH PCP AND SENIOR CLIENT ADVISOR, TAKE MEDICATION PRESCRIBED AND COMPLETE ABX DOSE,HOME HEALTH AND PT TO FOLLOW;PT DENIES ANY ADDITIONAL QUESTIONS OR NEEDS;IV SITE REMOVED WITH CATHETER INTACT AND TELE MONITORING D/C;WHEELCHAIR TO BE PROVIDED FOR D/C;SPOUSE TO TRANSPORT PT HOME;CALL LIGHT IN REACH;WILL CONTINUE TO MONITOR
--- NOTE | 2021-07-25 14:34 | NUR ---
Discharge instructions given. Patient verbalizes understanding of same. Discharged in stable condition via Wheelchair to Home with family. All belongings sent with pt. PT TRANSPORTED TO [facility] IN STABLE CONDITION VIA ACCOMPANIED BY VOLUNTEER,ALL BELONGINS LEFT WITH PT AT THIS TIME;FAMILY TO TRANSPORT PT HOME.
== END 2021-07-25 14:34 | disposition home health service (06) ==
LOC: ED 14:37 → ED-I 16:45 → ED 17:00 → MS2 17:01
PROVIDERS: ADMIT Hospitalist; ATTEND Hospitalist
DX: L03.116 Cellulitis of left lower limb (principal); R53.1 Weakness; E11.621 Type 2 diabetes mellitus with foot ulcer; L97.429 Non-pressure chronic ulcer of left heel and midfoot with unspecified severity; I48.91 Unspecified atrial fibrillation; I10 Essential (primary) hypertension; E78.5 Hyperlipidemia, unspecified; N40.0 Benign prostatic hyperplasia without lower urinary tract symptoms; B96.1 Klebsiella pneumoniae [K. pneumoniae] as the cause of diseases classified elsewhere; Z86.16 Personal history of COVID-19; Z98.84 Bariatric surgery status; Z79.01 Long term (current) use of anticoagulants; Z79.84 Long term (current) use of oral hypoglycemic drugs; Z87.891 Personal history of nicotine dependence; Z79.4 Long term (current) use of insulin; Z20.822 Contact with and (suspected) exposure to COVID-19
CPT/HCPCS: G0378

== ENCOUNTER 2021-08-30 16:14 | Emergency (ER) | payer MEDICARE ==
[2021-08-30] VITALS (11 sets, daily range): BP systolic 113–149; BP diastolic 67–88
[~2021-08-30] VITALS: Ht 190.5 cm; Wt 130.0 kg
[~2021-08-30 16:14] MED LIST changes: +K-TABS10 MEQ PO; +KEFLEX500 MG PO; +LYRICA75 MG PO; +METOLAZONE5 MG PO; +OXYCODONE10 M1 PO; +VOLTAREN1%GEL TOP; +XANAX0.25 MG PO; +XTAMPZA ER18 MG PO
[2021-08-30 18:32] LABS: HEMATOCRIT 44.3 % (39.0-50.0); HEMOGLOBIN 13.7 g/dl (14.0-18.0); IMMATURE GRANULOCYTES 0.1 % (0.0-5.0); MEAN CELL VOLUME 85.9 fL CALC (80.0-100.0); MEAN CORPUSCULAR HGB 26.6 pG CALC (26.0-32.0); MEAN CORPUSCULAR HGB CONC 30.9 g/dL CAL (32.0-36.0); NEUT# 5.12 thou/uL (1.82-7.42); RED BLOOD COUNT 5.16 mill/uL (4.70-6.10)
[2021-08-30 18:38] LABS: ALBUMIN 4.2 g/dL (3.2-5.0); ALKALINE PHOSPHATASE 145 u/l (38-126); ANION GAP 11 (6-22 (CALC)); BUN 38 mg/dL (8-23); BUN/CREATININE RATIO 68 (12-20 (CALC)); CARBON DIOXIDE 36 mmol/l (22-30); CHLORIDE 91 mmol/l (95-108); CREATININE 0.6 mg/dL (0.7-1.3); GFR > 60 ML/MIN (>=60 (CALC)); GFR FOR AFR.AMER. > 60 ML/MIN (>=60 (CALC)); POTASSIUM 3.6 mmol/l (3.5-5.1); SGOT/AST 37 u/l (19-48); SODIUM 134 mmol/l (137-146)
[2021-08-30 18:40] LABS: BILIRUBIN, TOTAL 0.4 mg/dL (0.0-1.4)
[2021-08-30] MEDS ORDERED: KEFLEX500 MG PO (19:01)
[2021-08-30] MEDS ORDERED: BACTRIM DS1 TAB PO (19:01)
== END 2021-08-30 20:00 | disposition home or self-care (01) ==
LOC: ED 16:14
PROVIDERS: Emergency Medicine
DX: E11.621 Type 2 diabetes mellitus with foot ulcer (principal); L97.529 Non-pressure chronic ulcer of other part of left foot with unspecified severity; I10 Essential (primary) hypertension; I48.91 Unspecified atrial fibrillation; E78.5 Hyperlipidemia, unspecified; Z86.16 Personal history of COVID-19; Z98.84 Bariatric surgery status; Z79.4 Long term (current) use of insulin; Z79.84 Long term (current) use of oral hypoglycemic drugs

== ENCOUNTER 2021-11-14 20:53 | Observation (INO) | payer MEDICARE ==
[~2021-11-14] VITALS: Ht 190.5 cm; Wt 123.0 kg
[~2021-11-14 20:53] MED LIST changes: +BACTRIM DS1 TAB PO; -OXYCODONE10 M1 PO; +OXYCODONE15 MG PO
[2021-11-14 21:04] VITALS: BP 117/77
[2021-11-14 21:30] VITALS: BP 129/82
[2021-11-14 21:32] LABS: HEMATOCRIT 42.5 % (39.0-50.0); HEMOGLOBIN 13.5 g/dl (14.0-18.0); IMMATURE GRANULOCYTES 0.1 % (0.0-5.0); MEAN CELL VOLUME 82.4 fL CALC (80.0-100.0); MEAN CORPUSCULAR HGB 26.2 pG CALC (26.0-32.0); MEAN CORPUSCULAR HGB CONC 31.8 g/dL CAL (32.0-36.0); NEUT# 6.03 thou/uL (1.82-7.42); RED BLOOD COUNT 5.16 mill/uL (4.70-6.10); RED CELL DISTRI WIDTH 15.3 % (11.5-15.5)
[2021-11-14 21:35] LABS: URINE BILIRUBIN - DIPSTICK NEGATIVE (NEGATIVE); URINE BLOOD DIPSTICK NEGATIVE (NEGATIVE); URINE COLOR YELLOW; URINE GLUCOSE - DIPSTICK >=1000 mg/dL (NEGATIVE); URINE KETONE NEGATIVE (NEGATIVE); URINE LEUK ESTERASE NEGATIVE (NEGATIVE); URINE PH 6.5 (4.5-8.0); URINE PROTEIN - DIPSTICK NEGATIVE (NEG-TRACE); URINE SPECIFIC GRAVITY 1.015; URINE UROBILINOGEN - DIPSTICK 0.2 E.U./dL (0.2)
[2021-11-14 21:43] LABS: URINE NITRITE - DIPSTICK NEGATIVE (Negative)
[2021-11-14] MEDS ORDERED: CLOPIDOGREL75 MG PO (21:48)
[2021-11-14 21:50] LABS: ALBUMIN 4.1 g/dL (3.2-5.0); BUN 30 mg/dL (8-23); BUN/CREATININE RATIO 58 (12-20 (CALC)); CHLORIDE 99 mmol/l (95-108); CREATININE 0.5 mg/dL (0.7-1.3); GFR FOR AFR.AMER. > 60 ML/MIN (>=60 (CALC)); GFR OTHER RACES > 60 ML/MIN (>=60 (CALC)); LIPASE 100 u/l (23-300); POTASSIUM 3.3 mmol/l (3.5-5.1); SODIUM 137 mmol/l (137-146); TOTAL PROTEIN 7.6 g/dL (6.3-8.2)
[2021-11-14 21:51] LABS: ALKALINE PHOSPHATASE 105 u/l (38-126); ANION GAP 14 (6-22 (CALC)); BILIRUBIN, TOTAL 0.2 mg/dL (0.0-1.4); CARBON DIOXIDE 27 mmol/l (22-30); SGOT/AST 29 u/l (19-48)
[2021-11-14 21:54] LABS: PROTHROMBIN TIME 10.3 SECONDS (9.0-12.5)
[2021-11-14 22:01] VITALS: BP 112/70
[2021-11-14 22:41] VITALS: BP 108/68
[2021-11-14 23:00] VITALS: BP 110/57
[2021-11-14 23:30] VITALS: BP 110/67
[2021-11-15] VITALS (7 sets, daily range): BP systolic 100–153; BP diastolic 47–82
[2021-11-15 06:09] LABS: HEMATOCRIT 40.2 % (39.0-50.0); HEMOGLOBIN 12.7 g/dl (14.0-18.0); MEAN CELL VOLUME 84.5 fL CALC (80.0-100.0); MEAN CORPUSCULAR HGB 26.7 pG CALC (26.0-32.0); MEAN CORPUSCULAR HGB CONC 31.6 g/dL CAL (32.0-36.0); RED BLOOD COUNT 4.76 mill/uL (4.70-6.10); RED CELL DISTRI WIDTH 15.4 % (11.5-15.5)
[2021-11-15 06:35] LABS: ANION GAP 10 (6-22 (CALC)); BUN 25 mg/dL (8-23); BUN/CREATININE RATIO 62 (12-20 (CALC)); CARBON DIOXIDE 30 mmol/l (22-30); CHLORIDE 103 mmol/l (95-108); CREATININE 0.4 mg/dL (0.7-1.3); GFR FOR AFR.AMER. > 60 ML/MIN (>=60 (CALC)); GFR OTHER RACES > 60 ML/MIN (>=60 (CALC)); MAGNESIUM 2.1 mg/dL (1.6-2.3); POTASSIUM 3.9 mmol/l (3.5-5.1); SODIUM 139 mmol/l (137-146)
[2021-11-15] MEDS ORDERED: GLIPIZIDE5 M2 PO (08:49)
[2021-11-16] VITALS (7 sets, daily range): BP systolic 126–159; BP diastolic 58–105
[2021-11-16 05:28] LABS: HEMATOCRIT 41.5 % (39.0-50.0); HEMOGLOBIN 12.7 g/dl (14.0-18.0); IMMATURE GRANULOCYTES 0.3 % (0.0-5.0); MEAN CELL VOLUME 84.9 fL CALC (80.0-100.0); MEAN CORPUSCULAR HGB CONC 30.6 g/dL CAL (32.0-36.0); NEUT# 3.82 thou/uL (1.82-7.42); RED BLOOD COUNT 4.89 mill/uL (4.70-6.10); RED CELL DISTRI WIDTH 15.6 % (11.5-15.5)
[2021-11-16 05:52] LABS: ALKALINE PHOSPHATASE 91 u/l (38-126); ANION GAP 13 (6-22 (CALC)); BUN 17 mg/dL (8-23); BUN/CREATININE RATIO 51 (12-20 (CALC)); CARBON DIOXIDE 25 mmol/l (22-30); CHLORIDE 103 mmol/l (95-108); CREATININE 0.3 mg/dL (0.7-1.3); GFR FOR AFR.AMER. > 60 ML/MIN (>=60 (CALC)); GFR OTHER RACES > 60 ML/MIN (>=60 (CALC)); MAGNESIUM 2.1 mg/dL (1.6-2.3); POTASSIUM 4.1 mmol/l (3.5-5.1); SGOT/AST 26 u/l (19-48); SODIUM 137 mmol/l (137-146)
[2021-11-16 05:58] LABS: ALBUMIN 3.2 g/dL (3.2-5.0); BILIRUBIN, TOTAL 0.5 mg/dL (0.0-1.4)
[2021-11-17 03:24] VITALS: BP 138/81
[2021-11-17 05:31] LABS: HEMATOCRIT 41.6 % (39.0-50.0); HEMOGLOBIN 12.9 g/dl (14.0-18.0); IMMATURE GRANULOCYTES 0.3 % (0.0-5.0); MEAN CELL VOLUME 84.4 fL CALC (80.0-100.0); MEAN CORPUSCULAR HGB 26.2 pG CALC (26.0-32.0); NEUT# 4.93 thou/uL (1.82-7.42); RED BLOOD COUNT 4.93 mill/uL (4.70-6.10); RED CELL DISTRI WIDTH 15.6 % (11.5-15.5)
[2021-11-17 05:45] LABS: ALBUMIN 3.6 g/dL (3.2-5.0); BILIRUBIN, TOTAL 0.4 mg/dL (0.0-1.4); BUN 15 mg/dL (8-23); BUN/CREATININE RATIO 41 (12-20 (CALC)); CARBON DIOXIDE 23 mmol/l (22-30); CHLORIDE 102 mmol/l (95-108); CREATININE 0.4 mg/dL (0.7-1.3); GFR FOR AFR.AMER. > 60 ML/MIN (>=60 (CALC)); GFR OTHER RACES > 60 ML/MIN (>=60 (CALC)); SODIUM 134 mmol/l (137-146); TOTAL PROTEIN 6.6 g/dL (6.3-8.2)
[2021-11-17 05:54] LABS: ALKALINE PHOSPHATASE 257 u/l (38-126); ANION GAP 14 (6-22 (CALC)); SGOT/AST 85 u/l (19-48)
[2021-11-17 06:07] VITALS: BP 145/80
[2021-11-17 06:15] VITALS: BP 145/80
== END 2021-11-17 10:32 | disposition home health service (06) ==
LOC: ED 20:53 → ED-I 23:20 → ED 23:52 → MS2 23:53
PROVIDERS: Nurse Practitioner; ADMIT Hospitalist; ATTEND Hospitalist
PROC: 0T9B70Z Drainage of Bladder with Drainage Device, Via Natural or Artificial Opening (ICD-10-PCS; principal; 2021-11-14)
DX: U07.1 COVID-19 (principal); R53.1 Weakness; E87.6 Hypokalemia; K59.00 Constipation, unspecified; I10 Essential (primary) hypertension; E11.65 Type 2 diabetes mellitus with hyperglycemia; I48.91 Unspecified atrial fibrillation; E78.5 Hyperlipidemia, unspecified; F41.9 Anxiety disorder, unspecified; F32.A Depression, unspecified; N40.1 Benign prostatic hyperplasia with lower urinary tract symptoms; R39.14 Feeling of incomplete bladder emptying; G89.29 Other chronic pain; R74.8 Abnormal levels of other serum enzymes; Z98.84 Bariatric surgery status; Z86.16 Personal history of COVID-19; Z87.01 Personal history of pneumonia (recurrent); Z79.84 Long term (current) use of oral hypoglycemic drugs; Z79.4 Long term (current) use of insulin; Z96.0 Presence of urogenital implants; Z79.01 Long term (current) use of anticoagulants; Z87.891 Personal history of nicotine dependence; Z79.891 Long term (current) use of opiate analgesic
CPT/HCPCS: G0378; Q9967

== ENCOUNTER 2022-02-20 13:38 | Observation (INO) | payer MEDICARE ==
[2022-02-20] VITALS (27 sets, daily range): BP systolic 97–130; BP diastolic 46–75
[~2022-02-20] VITALS: Ht 190.5 cm; Wt 91.4 kg
[~2022-02-20 13:38] MED LIST changes: +CLOPIDOGREL75 MG PO; +OXYCODONE20 M1 PO; -XTAMPZA ER18 MG PO
--- NOTE | 2022-02-20 13:43 | NUR ---
ARRIVED VIA EMS. ROOMED.
--- NOTE | 2022-02-20 14:00 | NUR ---
REASSESSED. NAD. VITALS STABLE. Call light in reach
[2022-02-20 14:02] LABS: IMMATURE GRANULOCYTES 0.4 % (0.0-5.0); MEAN CORPUSCULAR HGB 23.3 pG CALC (26.0-32.0); MEAN CORPUSCULAR HGB CONC 30.6 g/dL CAL (32.0-36.0); NEUT# 11.79 thou/uL (1.82-7.42); RED BLOOD COUNT 4.29 mill/uL (4.70-6.10)
[2022-02-20 14:06] LABS: HEMATOCRIT 32.7 % (39.0-50.0); MEAN CELL VOLUME 76.2 fL CALC (80.0-100.0)
[2022-02-20 14:17] LABS: ALBUMIN 3.9 g/dL (3.2-5.0); ALKALINE PHOSPHATASE 129 u/l (38-126); ANION GAP 12 (6-22 (CALC)); BILIRUBIN, TOTAL 0.4 mg/dL (0.0-1.4); BUN 27 mg/dL (8-23); BUN/CREATININE RATIO 57 (12-20 (CALC)); CARBON DIOXIDE 28 mmol/l (22-30); CHLORIDE 100 mmol/l (95-108); CREATININE 0.5 mg/dL (0.7-1.3); GFR FOR AFR.AMER. > 60 ML/MIN (>=60 (CALC)); GFR OTHER RACES > 60 ML/MIN (>=60 (CALC)); POTASSIUM 3.9 mmol/l (3.5-5.1); SGOT/AST 61 u/l (19-48); SODIUM 136 mmol/l (137-146); TOTAL PROTEIN 7.1 g/dL (6.3-8.2)
[2022-02-20 14:38] LABS: URINE BILIRUBIN - DIPSTICK NEGATIVE (NEGATIVE); URINE BLOOD DIPSTICK NEGATIVE (NEGATIVE); URINE COLOR YELLOW; URINE GLUCOSE - DIPSTICK >=1000 mg/dL (NEGATIVE); URINE KETONE NEGATIVE (NEGATIVE); URINE LEUK ESTERASE NEGATIVE (NEGATIVE); URINE PH 5.5 (4.5-8.0); URINE PROTEIN - DIPSTICK NEGATIVE (NEG-TRACE); URINE SPECIFIC GRAVITY <=1.005; URINE UROBILINOGEN - DIPSTICK 0.2 E.U./dL (0.2)
[2022-02-20 14:42] LABS: URINE NITRITE - DIPSTICK NEGATIVE (Negative)
--- NOTE | 2022-02-20 15:00 | NUR ---
reassessed. nad. vitals stable. call light in reach
--- NOTE | 2022-02-20 16:00 | NUR ---
reassessed. nad. vitals stable. call light in reach
--- NOTE | 2022-02-20 19:05 | NUR ---
report given to khari Mccracken
--- NOTE | 2022-02-20 19:35 | NUR ---
ASSUMED CARE FROM KEVIN LINARES. PT STABLE AWAITING FOR ROOM ASSIGNMENT. PROVIDED BLANKET FOR COMFORT. WILL CONTINUE TO MONITOR.
--- NOTE | 2022-02-20 21:38 | NUR ---
Admission Note Report Given to: DORIAN Transported by: Wheelchair X Stretcher Transported with: X Nurse Transporter Patent IV O2 X Tobacco Drier Operator Location: ICU X MS2
--- NOTE | 2022-02-20 22:30 | NUR ---
PATIENT ADMITTED FROM ER VIA STRETCHER WITH ER STAFF IN ATTENDANCE. PATIENT ASSISTED TO THE BED. PATIENT ADMITTED AFTER FALL AT HOME AND WITH PNEUMONIA ALERT AND ORIENTEDX3. PATIENT STATES THAT HE DOOES HAVE HOMECARE WITH [facility]-NURSING TO CHANGE WRAPS TO HIS LEGS TWICE WEEKLY. ALSO IS WEARING ORTHO SHOES. DOESN'T WANT TO TAKE SHOES OFF IN BED. PATIENT WITH TELE MONITOR IN PLACE. SALINE LOCK TO RIGHT FOREARM INTACT AND HEALTHY A THIS TIME. PATIENT WITH CHRONIC PAIN ISSUES AND MEDICATED WITH OXYCODONE 15MG PO FOR BACK AND COCCYX PAIN. ENCOURAGED PATIENT TO STAY OFF HIS BACK BUT NOT ALWAYS COMPLIANT WITH CARE. VOIDING OLENA URINE IN URINAL. LAST BM WAS 02/19/22 ORIENTED TO ROOM AND SURROUNDINGS. INSTRUCTED ON USE OF NURSE CALL LIGHT SYSTEM AND TV REMOTE. SAFETY PRECAUTIONS REINFORCED. CALL LIGHT IN REACH. WILL CONT TO MONITOR.
[2022-02-21 00:30] VITALS: BP 130/63
--- NOTE | 2022-02-21 01:00 | NUR ---
PATIENT RESTING IN BED-ASKING THAT THE BED ALARM BE SHUT OFF. ADVISED PATIENT THAT HE IS HERE BECAUSE OF A FALL AT HOME AND HE IS UNSTEADY ON HIS FEET-NOT ALWAYS COMPLAINT WITH CARE AND INSTRUCTIONS. BED ALARM REMAINS IN PLACE. TELE MONITOR IN PLACE. SALINE LOCK TO RIGHT FOREARM INTACT.SAFETY PRECAUTIONS REINFORCED. CALL LIGHT IN REACH. WILL CONT TO MONITOR.
--- NOTE | 2022-02-21 04:55 | NUR ---
PATIENT RESTING IN BED AT THIS TIME WITH EYES CLOSED. RESPS ARE EVEN AND UNLABORED. TELE MONITOR IN PLACE WITH LAST READING SB-51. SALINE LOCK TO RIGHT WRIST INTACT. VOIDING QS OLENA URINEIN URINAL. BED ALARM IN PLACE FOR PATIENT SAFETY. CALL LIGHT IN REACH. WILL CONT TO MONITOR.
[2022-02-21 04:56] VITALS: BP 126/55
[2022-02-21 05:34] LABS: HEMATOCRIT 31.4 % (39.0-50.0); HEMOGLOBIN 9.5 g/dl (14.0-18.0); IMMATURE GRANULOCYTES 0.2 % (0.0-5.0); MEAN CELL VOLUME 77.3 fL CALC (80.0-100.0); MEAN CORPUSCULAR HGB 23.4 pG CALC (26.0-32.0); MEAN CORPUSCULAR HGB CONC 30.3 g/dL CAL (32.0-36.0); NEUT# 6.59 thou/uL (1.82-7.42); RED BLOOD COUNT 4.06 mill/uL (4.70-6.10); RED CELL DISTRI WIDTH 16.1 % (11.5-15.5)
[2022-02-21 06:37] VITALS: BP 104/43
[2022-02-21 06:52] LABS: ANION GAP 7 (6-22 (CALC)); BUN 21 mg/dL (8-23); BUN/CREATININE RATIO 40 (12-20 (CALC)); CARBON DIOXIDE 32 mmol/l (22-30); CHLORIDE 101 mmol/l (95-108); CREATININE 0.5 mg/dL (0.7-1.3); GFR FOR AFR.AMER. > 60 ML/MIN (>=60 (CALC)); GFR OTHER RACES > 60 ML/MIN (>=60 (CALC)); POTASSIUM 3.5 mmol/l (3.5-5.1); SODIUM 137 mmol/l (137-146)
[2022-02-21 10:32] VITALS: BP 141/57
--- NOTE | 2022-02-21 11:37 | NUR ---
PATIENT ALERT AND ORIENTED, SITTING ON THE SIDE OF BED. DISPLAYS SOME PERIODIC CONFUSION, AND REQUIRES REORIENTATION TO PRESENT TIME AND CONVERSATION. PATIENT COMPLAINED OF RIGHT HIP PAIN AND RATED IT 3/10. STATED THT NO MEDICATION WAS NEEDED AT THIS TIME. PATIENT ASKED ABOUT DISCHARGING TODAY. BED LOCKED IN LOWEST POSITION, CALL LIGHT WITHIN REACH, BED ALARM ON.
[2022-02-21] MEDS ORDERED: DICYCLOMINE10 MG PO ×2 (12:21)
[2022-02-21] MEDS ORDERED: FLONASE AL50 MCG/ACT (12:22)
[2022-02-21] MEDS ORDERED: SOTALOL HCL80 MG PO (12:22)
[2022-02-21] MEDS ORDERED: TRULICITY0.75 MG/0. SC (12:23)
[2022-02-21 12:32] VITALS: BP 135/55; BP 140/62
[2022-02-21 12:34] VITALS: BP 141/55
--- NOTE | 2022-02-22 13:08 | NUR ---
PRELIMINARY BLOOD CULTURE SHOWS GRAM POSITIVE COCCI SHOWS GRAM POSITIVE COCCI IN [address] NEWMAN. NO NEW ORDERS. WILL F/U WITH FINALS
--- NOTE | 2022-02-23 09:59 | NUR ---
Pneumonia post discharge follow up call completed today, 02/23/33/ Pt's states pt is doing well. No fever, chills, or SOB. Pt is having some hip pain. HH is scheduled to see patient today and they will have them assess the hip during their visit.. No medications were prescribed at discharge. Patient has a follow up appointment scheduled on 03/02/22. No questions or concerns expressed at this time.
== END 2022-02-21 13:54 | disposition home health service (06) ==
LOC: ED 13:38 → ED-I 16:00 → ED 16:44 → MS2 16:45 → ED-I 16:45 → MS2 16:46
PROVIDERS: Family Medicine; ADMIT Internal Medicine; ATTEND Internal Medicine
DX: S00.03XA Contusion of scalp, initial encounter (principal); I10 Essential (primary) hypertension; I48.91 Unspecified atrial fibrillation; E11.9 Type 2 diabetes mellitus without complications; E78.5 Hyperlipidemia, unspecified; I25.10 Atherosclerotic heart disease of native coronary artery without angina pectoris; W01.0XXA Fall on same level from slipping, tripping and stumbling without subsequent striking against object, initial encounter; Y92.009 Unspecified place in unspecified non-institutional (private) residence as the place of occurrence of the external cause; Z79.01 Long term (current) use of anticoagulants; Z79.02 Long term (current) use of antithrombotics/antiplatelets; Z86.16 Personal history of COVID-19; Z98.84 Bariatric surgery status; Z79.84 Long term (current) use of oral hypoglycemic drugs; Z79.4 Long term (current) use of insulin; Z79.891 Long term (current) use of opiate analgesic; Z20.822 Contact with and (suspected) exposure to COVID-19
CPT/HCPCS: G0378; Q9967

== ENCOUNTER 2022-02-26 16:28 | Observation (INO) | payer MEDICARE ==
[2022-02-26] VITALS (8 sets, daily range): BP systolic 133–151; BP diastolic 56–66
[~2022-02-26] VITALS: Ht 190.5 cm; Wt 93.0 kg
[~2022-02-26 16:28] MED LIST changes: +DICYCLOMINE10 MG PO; +FLONASE AL50 MCG/ACT; +SOTALOL HCL80 MG PO; +TRULICITY0.75 MG/0. SC
[2022-02-26 17:07] LABS: HEMATOCRIT 32.7 % (39.0-50.0); HEMOGLOBIN 9.9 g/dl (14.0-18.0); IMMATURE GRANULOCYTES 0.8 % (0.0-5.0); MEAN CELL VOLUME 76.9 fL CALC (80.0-100.0); MEAN CORPUSCULAR HGB 23.3 pG CALC (26.0-32.0); MEAN CORPUSCULAR HGB CONC 30.3 g/dL CAL (32.0-36.0); NEUT# 5.81 thou/uL (1.82-7.42); RED BLOOD COUNT 4.25 mill/uL (4.70-6.10); RED CELL DISTRI WIDTH 16.1 % (11.5-15.5)
[2022-02-26 17:14] LABS: ALBUMIN 3.8 g/dL (3.2-5.0); ALKALINE PHOSPHATASE 112 u/l (38-126); BUN 25 mg/dL (8-23); BUN/CREATININE RATIO 49 (12-20 (CALC)); CARBON DIOXIDE 31 mmol/l (22-30); CHLORIDE 91 mmol/l (95-108); CREATININE 0.5 mg/dL (0.7-1.3); GFR FOR AFR.AMER. > 60 ML/MIN (>=60 (CALC)); GFR OTHER RACES > 60 ML/MIN (>=60 (CALC)); POTASSIUM 3.6 mmol/l (3.5-5.1); SGOT/AST 25 u/l (19-48)
[2022-02-26 17:20] LABS: ANION GAP 12 (6-22 (CALC)); BILIRUBIN, TOTAL 0.6 mg/dL (0.0-1.4); SODIUM 130 mmol/l (137-146)
[2022-02-27 02:53] LABS: URINE BILIRUBIN - DIPSTICK NEGATIVE (NEGATIVE); URINE BLOOD DIPSTICK NEGATIVE (NEGATIVE); URINE COLOR YELLOW; URINE GLUCOSE - DIPSTICK >=1000 mg/dL (NEGATIVE); URINE KETONE TRACE mg/dL (NEGATIVE); URINE LEUK ESTERASE NEGATIVE (NEGATIVE); URINE NITRITE - DIPSTICK NEGATIVE (Negative); URINE PROTEIN - DIPSTICK 30 mg/dL (NEG-TRACE)
[2022-02-27 02:59] LABS: URINE RBC 0-2 RBC/hpf (0-5)
[2022-02-27 03:00] LABS: URINE SQUAMOUS EPITHELIAL CELL FEW EPI/hpf (0-FEW)
[2022-02-27 05:00] LABS: HEMATOCRIT 33.4 % (39.0-50.0); HEMOGLOBIN 10.2 g/dl (14.0-18.0); MEAN CELL VOLUME 75.9 fL CALC (80.0-100.0); MEAN CORPUSCULAR HGB 23.2 pG CALC (26.0-32.0); MEAN CORPUSCULAR HGB CONC 30.5 g/dL CAL (32.0-36.0); RED BLOOD COUNT 4.4 mill/uL (4.70-6.10); RED CELL DISTRI WIDTH 15.9 % (11.5-15.5)
[2022-02-27 05:10] LABS: ANION GAP 10 (6-22 (CALC)); BUN 19 mg/dL (8-23); BUN/CREATININE RATIO 44 (12-20 (CALC)); CARBON DIOXIDE 31 mmol/l (22-30); CHLORIDE 91 mmol/l (95-108); CREATININE 0.4 mg/dL (0.7-1.3); GFR FOR AFR.AMER. > 60 ML/MIN (>=60 (CALC)); GFR OTHER RACES > 60 ML/MIN (>=60 (CALC)); MAGNESIUM 1.8 mg/dL (1.6-2.3); POTASSIUM 3.9 mmol/l (3.5-5.1); SODIUM 128 mmol/l (137-146)
[2022-02-27 06:46] VITALS: BP 120/52
[2022-02-27 08:52] VITALS: BP 144/64
[2022-02-27 11:25] VITALS: BP 130/47
[2022-02-27] MEDS ORDERED: PREGABALIN75 MG PO (11:48)
[2022-02-27] MEDS ORDERED: PIROXICAM20 MG PO (11:49)
[2022-02-27] MEDS ORDERED: ALL DAY10 MG PO (11:50)
[2022-02-27 15:55] VITALS: BP 142/56
[2022-02-27 18:23] VITALS: BP 143/59
[2022-02-28 02:15] VITALS: BP 150/66
[2022-02-28 02:20] VITALS: BP 150/56
[2022-02-28 02:25] VITALS: BP 151/63
[2022-02-28 05:37] LABS: HEMATOCRIT 34.7 % (39.0-50.0); HEMOGLOBIN 10.6 g/dl (14.0-18.0); IMMATURE GRANULOCYTES 0.4 % (0.0-5.0); MEAN CELL VOLUME 75.3 fL CALC (80.0-100.0); MEAN CORPUSCULAR HGB CONC 30.5 g/dL CAL (32.0-36.0); NEUT# 5.66 thou/uL (1.82-7.42); RED BLOOD COUNT 4.61 mill/uL (4.70-6.10); RED CELL DISTRI WIDTH 16.2 % (11.5-15.5)
[2022-02-28 05:40] LABS: ANION GAP 9 (6-22 (CALC)); BUN 12 mg/dL (8-23); BUN/CREATININE RATIO 34 (12-20 (CALC)); CARBON DIOXIDE 31 mmol/l (22-30); CHLORIDE 94 mmol/l (95-108); CREATININE 0.3 mg/dL (0.7-1.3); GFR FOR AFR.AMER. > 60 ML/MIN (>=60 (CALC)); GFR OTHER RACES > 60 ML/MIN (>=60 (CALC)); POTASSIUM 3.5 mmol/l (3.5-5.1); SODIUM 131 mmol/l (137-146)
[2022-02-28 08:02] VITALS: BP 141/51
[2022-02-28 11:31] VITALS: BP 111/51
[2022-02-28] MEDS ORDERED: LASIX20 MG PO (13:09)
[2022-02-28] MEDS ORDERED: ALPRAZOLAM0.25 MG PO (13:22)
[2022-02-28] MEDS ORDERED: OXYCODONE5 M1 PO (13:22)
[2022-02-28 16:03] VITALS: BP 129/57
== END 2022-02-28 16:44 ==
LOC: ED 16:28 → ED-I 18:00 → ED 18:21 → MS2 18:22
PROVIDERS: Family Medicine; Nurse Practitioner; ADMIT Internal Medicine; ATTEND Internal Medicine
DX: S00.03XA Contusion of scalp, initial encounter (principal); S00.01XA Abrasion of scalp, initial encounter; S50.01XA Contusion of right elbow, initial encounter; I12.9 Hypertensive chronic kidney disease with stage 1 through stage 4 chronic kidney disease, or unspecified chronic kidney disease; E11.22 Type 2 diabetes mellitus with diabetic chronic kidney disease; N18.9 Chronic kidney disease, unspecified; E87.1 Hypo-osmolality and hyponatremia; I48.91 Unspecified atrial fibrillation; E78.5 Hyperlipidemia, unspecified; F10.10 Alcohol abuse, uncomplicated; F41.9 Anxiety disorder, unspecified; R41.82 Altered mental status, unspecified; L03.116 Cellulitis of left lower limb; L03.115 Cellulitis of right lower limb; N40.0 Benign prostatic hyperplasia without lower urinary tract symptoms; W01.0XXA Fall on same level from slipping, tripping and stumbling without subsequent striking against object, initial encounter; Y92.009 Unspecified place in unspecified non-institutional (private) residence as the place of occurrence of the external cause; Z98.84 Bariatric surgery status; Z86.16 Personal history of COVID-19; Z79.84 Long term (current) use of oral hypoglycemic drugs; Z91.81 History of falling; Z79.01 Long term (current) use of anticoagulants; Z79.02 Long term (current) use of antithrombotics/antiplatelets; Z79.891 Long term (current) use of opiate analgesic; Z20.822 Contact with and (suspected) exposure to COVID-19
CPT/HCPCS: G0378; J2060

== ENCOUNTER 2022-04-01 14:39 | Inpatient (IN) | payer MEDICARE ==
[~2022-04-01] VITALS: Ht 190.5 cm; Wt 99.0 kg
[~2022-04-01 14:39] MED LIST changes: +ALL DAY10 MG PO; +ALPRAZOLAM0.25 MG PO; +LASIX20 MG PO; +OXYCODONE5 M1 PO; +PIROXICAM20 MG PO; +PREGABALIN75 MG PO
[2022-04-01 14:46] VITALS: BP 125/58
[2022-04-01 15:17] LABS: HEMOGLOBIN 10.6 g/dl (14.0-18.0); IMMATURE GRANULOCYTES 0.1 % (0.0-5.0); MEAN CELL VOLUME 80.7 fL CALC (80.0-100.0); MEAN CORPUSCULAR HGB 23.8 pG CALC (26.0-32.0); MEAN CORPUSCULAR HGB CONC 29.4 g/dL CAL (32.0-36.0); NEUT# 4.55 thou/uL (1.82-7.42); RED BLOOD COUNT 4.46 mill/uL (4.70-6.10); RED CELL DISTRI WIDTH 20.3 % (11.5-15.5)
[2022-04-01 15:34] LABS: ALBUMIN 3.6 g/dL (3.2-5.0); ANION GAP 13 (6-22 (CALC)); BUN 24 mg/dL (8-23); BUN/CREATININE RATIO 36 (12-20 (CALC)); CARBON DIOXIDE 28 mmol/l (22-30); CHLORIDE 100 mmol/l (95-108); CREATININE 0.7 mg/dL (0.7-1.3); GFR FOR AFR.AMER. > 60 ML/MIN (>=60 (CALC)); GFR OTHER RACES > 60 ML/MIN (>=60 (CALC)); SODIUM 137 mmol/l (137-146); TOTAL PROTEIN 6.5 g/dL (6.3-8.2)
[2022-04-01 15:35] LABS: ALKALINE PHOSPHATASE 246 u/l (38-126); BILIRUBIN, TOTAL 0.3 mg/dL (0.0-1.4); SGOT/AST 73 u/l (19-48)
[2022-04-01 15:53] VITALS: BP 135/70
[2022-04-01 16:01] VITALS: BP 135/69
[2022-04-01 16:31] VITALS: BP 145/64
[2022-04-01 17:01] VITALS: BP 137/73
[2022-04-01 17:53] LABS: URINE BILIRUBIN - DIPSTICK NEGATIVE (NEGATIVE); URINE BLOOD DIPSTICK NEGATIVE (NEGATIVE); URINE COLOR YELLOW; URINE GLUCOSE - DIPSTICK >=1000 mg/dL (NEGATIVE); URINE KETONE NEGATIVE (NEGATIVE); URINE LEUK ESTERASE NEGATIVE (NEGATIVE); URINE NITRITE - DIPSTICK NEGATIVE (Negative); URINE PH 5.5 (4.5-8.0); URINE PROTEIN - DIPSTICK NEGATIVE (NEG-TRACE); URINE SPECIFIC GRAVITY 1.025; URINE UROBILINOGEN - DIPSTICK 0.2 E.U./dL (0.2)
[2022-04-01 23:39] VITALS: BP 123/58
[2022-04-02] MEDS ORDERED: OXYCODONE15 MG PO (01:19)
[2022-04-02 04:10] VITALS: BP 116/54
[2022-04-02 06:00] LABS: HEMATOCRIT 32.1 % (39.0-50.0); HEMOGLOBIN 9.7 g/dl (14.0-18.0); IMMATURE GRANULOCYTES 0.2 % (0.0-5.0); MEAN CELL VOLUME 81.3 fL CALC (80.0-100.0); MEAN CORPUSCULAR HGB 24.6 pG CALC (26.0-32.0); MEAN CORPUSCULAR HGB CONC 30.2 g/dL CAL (32.0-36.0); NEUT# 3.9 thou/uL (1.82-7.42); RED BLOOD COUNT 3.95 mill/uL (4.70-6.10); RED CELL DISTRI WIDTH 20.6 % (11.5-15.5)
[2022-04-02 06:13] VITALS: BP 111/43
[2022-04-02 06:26] LABS: ALKALINE PHOSPHATASE 210 u/l (38-126); ANION GAP 10 (6-22 (CALC)); BILIRUBIN, TOTAL 0.3 mg/dL (0.0-1.4); BUN 20 mg/dL (8-23); BUN/CREATININE RATIO 42 (12-20 (CALC)); CARBON DIOXIDE 30 mmol/l (22-30); CHLORIDE 100 mmol/l (95-108); CREATININE 0.5 mg/dL (0.7-1.3); GFR FOR AFR.AMER. > 60 ML/MIN (>=60 (CALC)); GFR OTHER RACES > 60 ML/MIN (>=60 (CALC)); POTASSIUM 4.1 mmol/l (3.5-5.1); SGOT/AST 45 u/l (19-48); SODIUM 136 mmol/l (137-146); TOTAL PROTEIN 5.3 g/dL (6.3-8.2)
[2022-04-02 06:28] LABS: ALBUMIN 2.8 g/dL (3.2-5.0)
[2022-04-02 08:44] VITALS: BP 153/55
[2022-04-02 11:13] VITALS: BP 110/49
[2022-04-02 14:44] VITALS: BP 114/44
[2022-04-02 19:14] VITALS: BP 111/43
[2022-04-03 00:33] VITALS: BP 104/38
[2022-04-03 04:01] VITALS: BP 104/45
[2022-04-03 05:36] LABS: HEMATOCRIT 31.5 % (39.0-50.0); HEMOGLOBIN 9.5 g/dl (14.0-18.0); IMMATURE GRANULOCYTES 0.2 % (0.0-5.0); MEAN CELL VOLUME 80.2 fL CALC (80.0-100.0); MEAN CORPUSCULAR HGB 24.2 pG CALC (26.0-32.0); MEAN CORPUSCULAR HGB CONC 30.2 g/dL CAL (32.0-36.0); NEUT# 2.21 thou/uL (1.82-7.42); RED BLOOD COUNT 3.93 mill/uL (4.70-6.10); RED CELL DISTRI WIDTH 20.7 % (11.5-15.5)
[2022-04-03 05:54] LABS: ALBUMIN 2.8 g/dL (3.2-5.0); ALKALINE PHOSPHATASE 181 u/l (38-126); ANION GAP 10 (6-22 (CALC)); BILIRUBIN, TOTAL 0.3 mg/dL (0.0-1.4); BUN 14 mg/dL (8-23); BUN/CREATININE RATIO 35 (12-20 (CALC)); CARBON DIOXIDE 29 mmol/l (22-30); CHLORIDE 98 mmol/l (95-108); CREATININE 0.4 mg/dL (0.7-1.3); GFR FOR AFR.AMER. > 60 ML/MIN (>=60 (CALC)); GFR OTHER RACES > 60 ML/MIN (>=60 (CALC)); POTASSIUM 4.2 mmol/l (3.5-5.1); SGOT/AST 27 u/l (19-48); SODIUM 133 mmol/l (137-146); TOTAL PROTEIN 5.4 g/dL (6.3-8.2)
[2022-04-03 06:33] VITALS: BP 145/76
[2022-04-03 10:39] VITALS: BP 104/67; BP 152/100
[2022-04-03] MEDS ORDERED: XANAX0.25 MG PO (12:35)
[2022-04-03] MEDS ORDERED: OXYCODONE15 MG PO (12:35)
[2022-04-03] MEDS ORDERED: ZITHROMAX250 MG PO (12:38)
[2022-04-03 15:47] VITALS: BP 117/46
== END 2022-04-03 16:31 | DRG 93 ==
LOC: ED 14:39 → ED-I 22:10 → ED 22:32 → MS2 22:33
PROVIDERS: Family Medicine; ADMIT Internal Medicine; ATTEND Internal Medicine
DX: G92.8 Other toxic encephalopathy (principal); T50.915A Adverse effect of multiple unspecified drugs, medicaments and biological substances, initial encounter; F10.20 Alcohol dependence, uncomplicated; I12.9 Hypertensive chronic kidney disease with stage 1 through stage 4 chronic kidney disease, or unspecified chronic kidney disease; E11.22 Type 2 diabetes mellitus with diabetic chronic kidney disease; N18.9 Chronic kidney disease, unspecified; I48.91 Unspecified atrial fibrillation; E78.5 Hyperlipidemia, unspecified; R91.8 Other nonspecific abnormal finding of lung field; M79.605 Pain in left leg; M79.604 Pain in right leg; F41.9 Anxiety disorder, unspecified; N40.0 Benign prostatic hyperplasia without lower urinary tract symptoms; Y92.009 Unspecified place in unspecified non-institutional (private) residence as the place of occurrence of the external cause; Z23 Encounter for immunization; Z98.84 Bariatric surgery status; Z86.16 Personal history of COVID-19; Z79.84 Long term (current) use of oral hypoglycemic drugs; Z79.4 Long term (current) use of insulin; Z79.891 Long term (current) use of opiate analgesic; Z79.01 Long term (current) use of anticoagulants; Z79.02 Long term (current) use of antithrombotics/antiplatelets; Z87.891 Personal history of nicotine dependence; Z91.81 History of falling; Z20.822 Contact with and (suspected) exposure to COVID-19
CPT/HCPCS: Q9967

== ENCOUNTER 2022-06-03 09:31 | Inpatient (IN) | payer MEDICARE ==
[~2022-06-03] VITALS: Ht 190.5 cm; Wt 95.8 kg
[2022-06-03] VITALS (49 sets, daily range): BP systolic 93–123; BP diastolic 56–86
[~2022-06-03 09:31] MED LIST changes: +ZITHROMAX250 MG PO
[2022-06-03 10:07] LABS: IMMATURE GRANULOCYTES 0.2 % (0.0-5.0); MEAN CELL VOLUME 78.1 fL CALC (80.0-100.0); MEAN CORPUSCULAR HGB 23.8 pG CALC (26.0-32.0); MEAN CORPUSCULAR HGB CONC 30.5 g/dL CAL (32.0-36.0); NEUT# 7.8 thou/uL (1.82-7.42); RED BLOOD COUNT 5.2 mill/uL (4.70-6.10); RED CELL DISTRI WIDTH 16.2 % (11.5-15.5)
[2022-06-03 10:12] LABS: HEMATOCRIT 40.6 % (39.0-50.0); HEMOGLOBIN 12.4 g/dl (14.0-18.0)
[2022-06-03 10:18] LABS: ALKALINE PHOSPHATASE 224 u/l (38-126); CARBON DIOXIDE 27 mmol/l (22-30); CREATININE 0.8 mg/dL (0.7-1.3); ETHYL ALCOHOL 0 mg/dl (0-30); GFR FOR AFR.AMER. > 60 ML/MIN (>=60 (CALC)); GFR OTHER RACES > 60 ML/MIN (>=60 (CALC)); MAGNESIUM 2.2 mg/dL (1.6-2.3)
[2022-06-03 10:19] LABS: LIPASE 42 u/l (23-300)
[2022-06-03 10:20] LABS: ALBUMIN 4.2 g/dL (3.2-5.0); ANION GAP 17 (6-22 (CALC)); BILIRUBIN, TOTAL 0.7 mg/dL (0.0-1.4); BUN 48 mg/dL (8-23); BUN/CREATININE RATIO 60 (12-20 (CALC)); CHLORIDE 93 mmol/l (95-108); POTASSIUM 5.1 mmol/l (3.5-5.1); SGOT/AST 135 u/l (19-48); SODIUM 132 mmol/l (137-146); TOTAL PROTEIN 7.7 g/dL (6.3-8.2)
[2022-06-03 10:34] LABS: URINE BILIRUBIN - DIPSTICK NEGATIVE (NEGATIVE); URINE BLOOD DIPSTICK NEGATIVE (NEGATIVE); URINE COLOR YELLOW; URINE GLUCOSE - DIPSTICK >=1000 mg/dL (NEGATIVE); URINE KETONE NEGATIVE (NEGATIVE); URINE LEUK ESTERASE NEGATIVE (NEGATIVE); URINE PROTEIN - DIPSTICK NEGATIVE (NEG-TRACE); URINE UROBILINOGEN - DIPSTICK 0.2 E.U./dL (0.2)
[2022-06-03 10:35] LABS: URINE NITRITE - DIPSTICK NEGATIVE (Negative)
[2022-06-04] VITALS (102 sets, daily range): BP systolic 93–132; BP diastolic 53–77
[2022-06-04 08:20] LABS: ALKALINE PHOSPHATASE 210 u/l (38-126); CARBON DIOXIDE 25 mmol/l (22-30); CREATININE 0.5 mg/dL (0.7-1.3); GFR FOR AFR.AMER. > 60 ML/MIN (>=60 (CALC)); GFR OTHER RACES > 60 ML/MIN (>=60 (CALC)); SGOT/AST 89 u/l (19-48)
[2022-06-04 08:25] LABS: ANION GAP 11 (6-22 (CALC)); BILIRUBIN, TOTAL 0.4 mg/dL (0.0-1.4); BUN 28 mg/dL (8-23); BUN/CREATININE RATIO 56 (12-20 (CALC)); CHLORIDE 109 mmol/l (95-108); POTASSIUM 3.4 mmol/l (3.5-5.1); SODIUM 142 mmol/l (137-146); TOTAL PROTEIN 5.8 g/dL (6.3-8.2)
[2022-06-05] VITALS (84 sets, daily range): BP systolic 51–134; BP diastolic 30–101
[2022-06-05 08:22] LABS: IMMATURE GRANULOCYTES 0.4 % (0.0-5.0); MEAN CELL VOLUME 82.1 fL CALC (80.0-100.0); MEAN CORPUSCULAR HGB 24.4 pG CALC (26.0-32.0); MEAN CORPUSCULAR HGB CONC 29.7 g/dL CAL (32.0-36.0); NEUT# 5.41 thou/uL (1.82-7.42); RED BLOOD COUNT 4.18 mill/uL (4.70-6.10); RED CELL DISTRI WIDTH 16.9 % (11.5-15.5)
[2022-06-05 08:30] LABS: HEMATOCRIT 34.3 % (39.0-50.0); HEMOGLOBIN 10.2 g/dl (14.0-18.0)
[2022-06-05 08:37] LABS: ALBUMIN 2.7 g/dL (3.2-5.0); ALKALINE PHOSPHATASE 155 u/l (38-126); BUN 17 mg/dL (8-23); BUN/CREATININE RATIO 31 (12-20 (CALC)); CHLORIDE 107 mmol/l (95-108); CREATININE 0.5 mg/dL (0.7-1.3); GFR FOR AFR.AMER. > 60 ML/MIN (>=60 (CALC)); GFR OTHER RACES > 60 ML/MIN (>=60 (CALC)); POTASSIUM 3.4 mmol/l (3.5-5.1); SGOT/AST 45 u/l (19-48); SODIUM 138 mmol/l (137-146); TOTAL PROTEIN 5.2 g/dL (6.3-8.2)
[2022-06-05] MEDS ORDERED: XANAX0.25 MG PO (08:37)
[2022-06-05] MEDS ORDERED: OXYCODONE20 M1 PO (08:37)
[2022-06-05 08:38] LABS: ANION GAP 16 (6-22 (CALC)); BILIRUBIN, TOTAL 0.6 mg/dL (0.0-1.4); CARBON DIOXIDE 18 mmol/l (22-30)
[2022-06-06] VITALS (45 sets, daily range): BP systolic 94–138; BP diastolic 51–86
[2022-06-06 05:13] LABS: HEMOGLOBIN 9.7 g/dl (14.0-18.0); MEAN CELL VOLUME 80.2 fL CALC (80.0-100.0); MEAN CORPUSCULAR HGB 24.3 pG CALC (26.0-32.0); MEAN CORPUSCULAR HGB CONC 30.3 g/dL CAL (32.0-36.0); RED BLOOD COUNT 3.99 mill/uL (4.70-6.10); RED CELL DISTRI WIDTH 16.9 % (11.5-15.5)
[2022-06-06 05:28] LABS: BUN 11 mg/dL (8-23); BUN/CREATININE RATIO 27 (12-20 (CALC)); CHLORIDE 106 mmol/l (95-108); CREATININE 0.4 mg/dL (0.7-1.3); GFR FOR AFR.AMER. > 60 ML/MIN (>=60 (CALC)); GFR OTHER RACES > 60 ML/MIN (>=60 (CALC)); MAGNESIUM 1.7 mg/dL (1.6-2.3); SODIUM 137 mmol/l (137-146)
[2022-06-06 05:32] LABS: ANION GAP 12 (6-22 (CALC)); CARBON DIOXIDE 23 mmol/l (22-30); POTASSIUM 4.1 mmol/l (3.5-5.1)
[2022-06-07] VITALS (44 sets, daily range): BP systolic 87–125; BP diastolic 48–85
[2022-06-07 05:18] LABS: HEMATOCRIT 32.9 % (39.0-50.0); HEMOGLOBIN 10.1 g/dl (14.0-18.0); MEAN CELL VOLUME 78.3 fL CALC (80.0-100.0); MEAN CORPUSCULAR HGB CONC 30.7 g/dL CAL (32.0-36.0); RED BLOOD COUNT 4.2 mill/uL (4.70-6.10); RED CELL DISTRI WIDTH 16.8 % (11.5-15.5)
[2022-06-07 05:35] LABS: ALBUMIN 2.4 g/dL (3.2-5.0); ALKALINE PHOSPHATASE 117 u/l (38-126); BUN 7 mg/dL (8-23); BUN/CREATININE RATIO 20 (12-20 (CALC)); CHLORIDE 104 mmol/l (95-108); CREATININE 0.4 mg/dL (0.7-1.3); GFR FOR AFR.AMER. > 60 ML/MIN (>=60 (CALC)); GFR OTHER RACES > 60 ML/MIN (>=60 (CALC)); MAGNESIUM 1.7 mg/dL (1.6-2.3); POTASSIUM 3.4 mmol/l (3.5-5.1); SGOT/AST 35 u/l (19-48); SODIUM 135 mmol/l (137-146); TOTAL PROTEIN 4.9 g/dL (6.3-8.2)
[2022-06-07 05:40] LABS: ANION GAP 5 (6-22 (CALC)); BILIRUBIN, TOTAL 0.2 mg/dL (0.0-1.4); CARBON DIOXIDE 29 mmol/l (22-30)
[2022-06-08] VITALS (13 sets, daily range): BP systolic 95–130; BP diastolic 55–76
[2022-06-08 05:53] LABS: HEMATOCRIT 33.5 % (39.0-50.0); HEMOGLOBIN 10.5 g/dl (14.0-18.0); MEAN CELL VOLUME 78.5 fL CALC (80.0-100.0); MEAN CORPUSCULAR HGB 24.6 pG CALC (26.0-32.0); MEAN CORPUSCULAR HGB CONC 31.3 g/dL CAL (32.0-36.0); RED BLOOD COUNT 4.27 mill/uL (4.70-6.10); RED CELL DISTRI WIDTH 17.2 % (11.5-15.5)
[2022-06-08 06:15] LABS: ALBUMIN 2.7 g/dL (3.2-5.0); ALKALINE PHOSPHATASE 115 u/l (38-126); BUN 8 mg/dL (8-23); BUN/CREATININE RATIO 21 (12-20 (CALC)); CARBON DIOXIDE 28 mmol/l (22-30); CHLORIDE 104 mmol/l (95-108); CREATININE 0.4 mg/dL (0.7-1.3); GFR FOR AFR.AMER. > 60 ML/MIN (>=60 (CALC)); GFR OTHER RACES > 60 ML/MIN (>=60 (CALC)); MAGNESIUM 1.7 mg/dL (1.6-2.3); SGOT/AST 27 u/l (19-48); SODIUM 138 mmol/l (137-146); TOTAL PROTEIN 5.3 g/dL (6.3-8.2)
[2022-06-08 06:23] LABS: ANION GAP 10 (6-22 (CALC)); BILIRUBIN, TOTAL 0.1 mg/dL (0.0-1.4); POTASSIUM 4.1 mmol/l (3.5-5.1)
[2022-06-09] VITALS (10 sets, daily range): BP systolic 96–142; BP diastolic 59–78
[2022-06-09 06:00] LABS: HEMATOCRIT 31.1 % (39.0-50.0); HEMOGLOBIN 9.7 g/dl (14.0-18.0); MEAN CELL VOLUME 78.7 fL CALC (80.0-100.0); MEAN CORPUSCULAR HGB 24.6 pG CALC (26.0-32.0); MEAN CORPUSCULAR HGB CONC 31.2 g/dL CAL (32.0-36.0); RED BLOOD COUNT 3.95 mill/uL (4.70-6.10); RED CELL DISTRI WIDTH 17.3 % (11.5-15.5)
[2022-06-09 06:27] LABS: ANION GAP 7 (6-22 (CALC)); BUN 11 mg/dL (8-23); BUN/CREATININE RATIO 25 (12-20 (CALC)); CARBON DIOXIDE 30 mmol/l (22-30); CHLORIDE 102 mmol/l (95-108); CREATININE 0.5 mg/dL (0.7-1.3); GFR FOR AFR.AMER. > 60 ML/MIN (>=60 (CALC)); GFR OTHER RACES > 60 ML/MIN (>=60 (CALC)); MAGNESIUM 1.6 mg/dL (1.6-2.3); POTASSIUM 3.9 mmol/l (3.5-5.1); SODIUM 135 mmol/l (137-146)
[2022-06-10 04:00] VITALS: BP 132/56
[2022-06-10 04:14] VITALS: BP 132/56
[2022-06-10 05:57] LABS: HEMATOCRIT 31.1 % (39.0-50.0); HEMOGLOBIN 9.7 g/dl (14.0-18.0); MEAN CELL VOLUME 79.1 fL CALC (80.0-100.0); MEAN CORPUSCULAR HGB 24.7 pG CALC (26.0-32.0); MEAN CORPUSCULAR HGB CONC 31.2 g/dL CAL (32.0-36.0); RED BLOOD COUNT 3.93 mill/uL (4.70-6.10); RED CELL DISTRI WIDTH 17.1 % (11.5-15.5)
[2022-06-10 06:04] LABS: ANION GAP 7 (6-22 (CALC)); BUN 10 mg/dL (8-23); BUN/CREATININE RATIO 25 (12-20 (CALC)); CARBON DIOXIDE 35 mmol/l (22-30); CHLORIDE 97 mmol/l (95-108); CREATININE 0.4 mg/dL (0.7-1.3); GFR FOR AFR.AMER. > 60 ML/MIN (>=60 (CALC)); GFR OTHER RACES > 60 ML/MIN (>=60 (CALC)); MAGNESIUM 1.5 mg/dL (1.6-2.3); POTASSIUM 3.3 mmol/l (3.5-5.1); SODIUM 136 mmol/l (137-146)
[2022-06-10 07:00] VITALS: BP 134/65
[2022-06-10 10:57] VITALS: BP 123/55
[2022-06-10] MEDS ORDERED: VIBRAMYCIN100 M2 PO (11:35)
== END 2022-06-10 14:00 | disposition home health service (06) | DRG 871 ==
LOC: ED 09:31 → ED-I 13:40 → ED 13:54 → ICU 13:55 → MS2 06-08 13:21
PROVIDERS: Family Medicine; Internal Medicine; ADMIT Internal Medicine; ATTEND Internal Medicine
PROC: 0BH17EZ Insertion of Endotracheal Airway into Trachea, Via Natural or Artificial Opening (ICD-10-PCS; principal; 2022-06-03)
PROC: 5A1935Z Respiratory Ventilation, Less than 24 Consecutive Hours (ICD-10-PCS; 2022-06-03)
PROC: 05HN33Z Insertion of Infusion Device into Left Internal Jugular Vein, Percutaneous Approach (ICD-10-PCS; 2022-06-03)
PROC: 0T9B70Z Drainage of Bladder with Drainage Device, Via Natural or Artificial Opening (ICD-10-PCS; 2022-06-03)
PROC: 3E043XZ Introduction of Vasopressor into Central Vein, Percutaneous Approach (ICD-10-PCS; 2022-06-03)
DX: A41.9 Sepsis, unspecified organism (principal); I21.A1 Myocardial infarction type 2; J15.9 Unspecified bacterial pneumonia; R65.21 Severe sepsis with septic shock; J96.01 Acute respiratory failure with hypoxia; I11.0 Hypertensive heart disease with heart failure; I50.9 Heart failure, unspecified; E11.51 Type 2 diabetes mellitus with diabetic peripheral angiopathy without gangrene; I25.10 Atherosclerotic heart disease of native coronary artery without angina pectoris; I48.91 Unspecified atrial fibrillation; E87.6 Hypokalemia; E83.42 Hypomagnesemia; M19.90 Unspecified osteoarthritis, unspecified site; N40.0 Benign prostatic hyperplasia without lower urinary tract symptoms; Z98.84 Bariatric surgery status; Z86.16 Personal history of COVID-19; Z79.84 Long term (current) use of oral hypoglycemic drugs; Z79.4 Long term (current) use of insulin; Z87.891 Personal history of nicotine dependence; Z91.81 History of falling; Z79.891 Long term (current) use of opiate analgesic; Z79.01 Long term (current) use of anticoagulants; Z79.02 Long term (current) use of antithrombotics/antiplatelets; Z20.822 Contact with and (suspected) exposure to COVID-19
CPT/HCPCS: J3370; J3475

== ENCOUNTER 2022-06-14 06:42 | Emergency (ER) | payer MEDICARE ==
[~2022-06-14] VITALS: Ht 190.5 cm; Wt 81.8 kg
[~2022-06-14 06:42] MED LIST changes: +VIBRAMYCIN100 M2 PO
[2022-06-14 07:27] LABS: BASO% 0.6 % (0-3); EOS% 2.6 % (0-8); HEMATOCRIT 33.7 % (39.0-50.0); IMMATURE GRANULOCYTES 0.6 % (0.0-5.0); LYMPH% 23.1 % (15-41); MEAN CELL VOLUME 79.7 fL CALC (80.0-100.0); MEAN CORPUSCULAR HGB 23.6 pG CALC (26.0-32.0); MEAN CORPUSCULAR HGB CONC 29.7 g/dL CAL (32.0-36.0); NEUT# 4.59 thou/uL (1.82-7.42); NEUT% 67.1 % (42-76); RED BLOOD COUNT 4.23 mill/uL (4.70-6.10)
[2022-06-14 07:42] LABS: ALKALINE PHOSPHATASE 125 u/l (38-126); ANION GAP 6 (6-22 (CALC)); BUN 21 mg/dL (8-23); BUN/CREATININE RATIO 41 (12-20 (CALC)); CARBON DIOXIDE 39 mmol/l (22-30); CHLORIDE 94 mmol/l (95-108); CREATININE 0.5 mg/dL (0.7-1.3); GFR FOR AFR.AMER. > 60 ML/MIN (>=60 (CALC)); GFR OTHER RACES > 60 ML/MIN (>=60 (CALC)); POTASSIUM 3.2 mmol/l (3.5-5.1); SGOT/AST 30 u/l (19-48); SODIUM 135 mmol/l (137-146)
[2022-06-14 07:45] LABS: ALBUMIN 3.4 g/dL (3.2-5.0); BILIRUBIN, TOTAL 0.2 mg/dL (0.0-1.4); TOTAL PROTEIN 6.5 g/dL (6.3-8.2)
[2022-06-14 09:55] VITALS: BP 120/53
== END 2022-06-14 09:55 | disposition short-term general hospital (02) ==
LOC: ED 06:42
PROVIDERS: Emergency Medicine
DX: R00.1 Bradycardia, unspecified (principal); I95.9 Hypotension, unspecified; I10 Essential (primary) hypertension; E11.9 Type 2 diabetes mellitus without complications; Z79.4 Long term (current) use of insulin

== ENCOUNTER 2022-07-06 20:10 | Observation (INO) | payer MEDICARE ==
[~2022-07-06] VITALS: Ht 190.5 cm; Wt 86.8 kg
[2022-07-06 22:32] LABS: BASO% 0.1 % (0-3); EOS% 0.5 % (0-8); HEMATOCRIT 32.6 % (39.0-50.0); HEMOGLOBIN 9.6 g/dl (14.0-18.0); IMMATURE GRANULOCYTES 0.2 % (0.0-5.0); LYMPH% 15.2 % (15-41); MEAN CELL VOLUME 76.2 fL CALC (80.0-100.0); MEAN CORPUSCULAR HGB 22.4 pG CALC (26.0-32.0); MEAN CORPUSCULAR HGB CONC 29.4 g/dL CAL (32.0-36.0); MONO% 3.1 % (2-13); NEUT# 7.38 thou/uL (1.82-7.42); NEUT% 80.9 % (42-76); RED BLOOD COUNT 4.28 mill/uL (4.70-6.10); RED CELL DISTRI WIDTH 16.8 % (11.5-15.5)
[2022-07-06 22:37] LABS: URINE BILIRUBIN - DIPSTICK NEGATIVE (NEGATIVE); URINE BLOOD DIPSTICK NEGATIVE (NEGATIVE); URINE COLOR YELLOW; URINE GLUCOSE - DIPSTICK >=1000 mg/dL (NEGATIVE); URINE KETONE NEGATIVE (NEGATIVE); URINE LEUK ESTERASE NEGATIVE (NEGATIVE); URINE PH 5.5 (4.5-8.0); URINE PROTEIN - DIPSTICK NEGATIVE (NEG-TRACE); URINE UROBILINOGEN - DIPSTICK 0.2 E.U./dL (0.2)
[2022-07-06 22:44] LABS: URINE NITRITE - DIPSTICK NEGATIVE (Negative)
[2022-07-06 22:45] VITALS: BP 113/65
[2022-07-06 22:45] LABS: ALBUMIN 3.5 g/dL (3.2-5.0); ALKALINE PHOSPHATASE 103 u/l (38-126); ANION GAP 6 (6-22 (CALC)); BUN 28 mg/dL (8-23); BUN/CREATININE RATIO 54 (12-20 (CALC)); CARBON DIOXIDE 36 mmol/l (22-30); CHLORIDE 91 mmol/l (95-108); CREATININE 0.5 mg/dL (0.7-1.3); GFR FOR AFR.AMER. > 60 ML/MIN (>=60 (CALC)); GFR OTHER RACES > 60 ML/MIN (>=60 (CALC)); POTASSIUM 3.6 mmol/l (3.5-5.1); SGOT/AST 29 u/l (19-48); SODIUM 130 mmol/l (137-146); TOTAL PROTEIN 6.5 g/dL (6.3-8.2)
[2022-07-06 22:50] LABS: BILIRUBIN, TOTAL 0.4 mg/dL (0.0-1.4)
[2022-07-06 23:00] VITALS: BP 112/58
[2022-07-06 23:15] VITALS: BP 112/64
[2022-07-07 02:54] VITALS: BP 107/61
[2022-07-07 06:41] VITALS: BP 121/63
[2022-07-07 08:16] VITALS: BP 121/63
[2022-07-07] MEDS ORDERED: LASIX 40 MG TAB40 MG PO (10:07)
[2022-07-07 15:37] VITALS: BP 106/63
[2022-07-07 19:39] VITALS: BP 133/60
[2022-07-07 20:00] VITALS: BP 108/52; BP 138/70
[2022-07-08] VITALS (7 sets, daily range): BP systolic 99–120; BP diastolic 45–65
[2022-07-08 06:12] LABS: HEMATOCRIT 31.8 % (39.0-50.0); HEMOGLOBIN 9.6 g/dl (14.0-18.0); MEAN CELL VOLUME 75.7 fL CALC (80.0-100.0); MEAN CORPUSCULAR HGB 22.9 pG CALC (26.0-32.0); MEAN CORPUSCULAR HGB CONC 30.2 g/dL CAL (32.0-36.0); RED BLOOD COUNT 4.2 mill/uL (4.70-6.10); RED CELL DISTRI WIDTH 16.6 % (11.5-15.5)
[2022-07-08 06:13] LABS: BUN 17 mg/dL (8-23); BUN/CREATININE RATIO 38 (12-20 (CALC)); CARBON DIOXIDE 32 mmol/l (22-30); CHLORIDE 94 mmol/l (95-108); CREATININE 0.4 mg/dL (0.7-1.3); GFR FOR AFR.AMER. > 60 ML/MIN (>=60 (CALC)); GFR OTHER RACES > 60 ML/MIN (>=60 (CALC)); SODIUM 129 mmol/l (137-146)
[2022-07-08 06:15] LABS: ANION GAP 7 (6-22 (CALC)); POTASSIUM 4.1 mmol/l (3.5-5.1)
[2022-07-09] VITALS (9 sets, daily range): BP systolic 110–138; BP diastolic 62–79
[2022-07-09 06:03] LABS: BASO% 0.4 % (0-3); HEMATOCRIT 31.5 % (39.0-50.0); HEMOGLOBIN 9.2 g/dl (14.0-18.0); IMMATURE GRANULOCYTES 0.4 % (0.0-5.0); LYMPH% 26.7 % (15-41); MEAN CELL VOLUME 76.5 fL CALC (80.0-100.0); MEAN CORPUSCULAR HGB 22.3 pG CALC (26.0-32.0); MEAN CORPUSCULAR HGB CONC 29.2 g/dL CAL (32.0-36.0); MONO% 3.4 % (2-13); NEUT# 3.39 thou/uL (1.82-7.42); NEUT% 67.1 % (42-76); RED BLOOD COUNT 4.12 mill/uL (4.70-6.10); RED CELL DISTRI WIDTH 16.7 % (11.5-15.5)
[2022-07-09 06:32] LABS: ANION GAP 7 (6-22 (CALC)); BUN 14 mg/dL (8-23); BUN/CREATININE RATIO 34 (12-20 (CALC)); CARBON DIOXIDE 32 mmol/l (22-30); CHLORIDE 97 mmol/l (95-108); CREATININE 0.4 mg/dL (0.7-1.3); GFR FOR AFR.AMER. > 60 ML/MIN (>=60 (CALC)); GFR OTHER RACES > 60 ML/MIN (>=60 (CALC)); POTASSIUM 4.3 mmol/l (3.5-5.1); SODIUM 132 mmol/l (137-146)
[2022-07-09] MEDS ORDERED: LASIX 40 MG TAB40 MG PO (13:52)
[2022-07-09] MEDS ORDERED: METFORMIN HCL1000 MG PO (13:53)
[2022-07-09] MEDS ORDERED: LO-DOSE ASA81 MG PO (13:55)
[2022-07-09] MEDS ORDERED: AMOX/K CLAV875 M1 PO (14:01)
[2022-07-09] MEDS ORDERED: ZPAK PO (14:02)
[2022-07-09] MEDS ORDERED: SOTALOL HCL80 MG PO (14:13)
== END 2022-07-09 20:28 | disposition home health service (06) ==
LOC: ED 20:10 → ED-I 07-07 01:00 → ED 07-07 01:08 → MS2 07-07 01:09
PROVIDERS: Emergency Medicine; Internal Medicine; ADMIT Internal Medicine; ATTEND Internal Medicine
DX: J18.9 Pneumonia, unspecified organism (principal); J44.0 Chronic obstructive pulmonary disease with (acute) lower respiratory infection; I10 Essential (primary) hypertension; E11.649 Type 2 diabetes mellitus with hypoglycemia without coma; I48.91 Unspecified atrial fibrillation; E78.5 Hyperlipidemia, unspecified; M19.90 Unspecified osteoarthritis, unspecified site; F41.9 Anxiety disorder, unspecified; N40.0 Benign prostatic hyperplasia without lower urinary tract symptoms; G89.29 Other chronic pain; M79.605 Pain in left leg; M79.604 Pain in right leg; Z79.4 Long term (current) use of insulin; Z79.84 Long term (current) use of oral hypoglycemic drugs; Z98.84 Bariatric surgery status; Z79.891 Long term (current) use of opiate analgesic; Z79.01 Long term (current) use of anticoagulants; Z87.891 Personal history of nicotine dependence; Z87.01 Personal history of pneumonia (recurrent); Z20.822 Contact with and (suspected) exposure to COVID-19

== ENCOUNTER 2022-07-28 11:11 | Emergency (ER) | payer MEDICARE ==
[~2022-07-28] VITALS: Ht 190.5 cm; Wt 81.2 kg
[~2022-07-28 11:11] MED LIST changes: +ZPAK PO
[2022-07-28 11:20] VITALS: BP 127/77
[2022-07-28 11:30] VITALS: BP 134/83
[2022-07-28 11:45] VITALS: BP 118/66
[2022-07-28 11:53] LABS: BASO% 0.4 % (0-3); EOS% 0.7 % (0-8); HEMATOCRIT 37.1 % (39.0-50.0); HEMOGLOBIN 10.6 g/dl (14.0-18.0); IMMATURE GRANULOCYTES 0.7 % (0.0-5.0); LYMPH% 19.7 % (15-41); MEAN CELL VOLUME 73.3 fL CALC (80.0-100.0); MEAN CORPUSCULAR HGB 20.9 pG CALC (26.0-32.0); MEAN CORPUSCULAR HGB CONC 28.6 g/dL CAL (32.0-36.0); MONO% 6.7 % (2-13); NEUT# 5.91 thou/uL (1.82-7.42); NEUT% 71.8 % (42-76); RED BLOOD COUNT 5.06 mill/uL (4.70-6.10); RED CELL DISTRI WIDTH 17.2 % (11.5-15.5)
[2022-07-28 11:56] LABS: PROTHROMBIN TIME 10.4 SECONDS (9.0-12.5)
[2022-07-28 11:57] LABS: ALKALINE PHOSPHATASE 106 u/l (38-126); ANION GAP 12 (6-22 (CALC)); BILIRUBIN, TOTAL 0.4 mg/dL (0.2-1.3); CARBON DIOXIDE 32 mmol/l (22-30); CHLORIDE 97 mmol/l (95-108); CREATININE 0.6 mg/dL (0.7-1.3); GFR FOR AFR.AMER. > 60 ML/MIN (>=60 (CALC)); GFR OTHER RACES > 60 ML/MIN (>=60 (CALC)); SGOT/AST 41 u/l (19-48); SODIUM 137 mmol/l (137-146); TOTAL PROTEIN 7.8 g/dL (6.3-8.2)
[2022-07-28 12:00] VITALS: BP 115/63
[2022-07-28 12:01] LABS: ALBUMIN 4.5 g/dL (3.2-5.0); BUN 40 mg/dL (8-23); BUN/CREATININE RATIO 67 (12-20 (CALC))
[2022-07-28 12:29] LABS: URINE BILIRUBIN - DIPSTICK NEGATIVE (NEGATIVE); URINE BLOOD DIPSTICK NEGATIVE (NEGATIVE); URINE COLOR YELLOW; URINE GLUCOSE - DIPSTICK >=1000 mg/dL (NEGATIVE); URINE KETONE NEGATIVE (NEGATIVE); URINE LEUK ESTERASE TRACE (NEGATIVE); URINE PH 5.5 (4.5-8.0); URINE PROTEIN - DIPSTICK 30 mg/dL (NEG-TRACE); URINE UROBILINOGEN - DIPSTICK 0.2 E.U./dL (0.2)
[2022-07-28 12:31] LABS: URINE EPITHELIAL CELLS FEW EPI/hpf (0-FEW); URINE MUCUS MODERATE hpf (NONE-FEW); URINE NITRITE - DIPSTICK NEGATIVE (Negative); URINE WBC 0-2 WBC/hpf (0-5)
[2022-07-28 14:28] VITALS: BP 115/63
== END 2022-07-28 14:45 | disposition home or self-care (01) ==
LOC: ED 11:11
PROVIDERS: Emergency Medicine
DX: S09.90XA Unspecified injury of head, initial encounter (principal); I48.20 Chronic atrial fibrillation, unspecified; E11.9 Type 2 diabetes mellitus without complications; I10 Essential (primary) hypertension; R53.1 Weakness; W18.30XA Fall on same level, unspecified, initial encounter; Y92.009 Unspecified place in unspecified non-institutional (private) residence as the place of occurrence of the external cause; Z79.01 Long term (current) use of anticoagulants; Z79.4 Long term (current) use of insulin; Z91.81 History of falling

== ENCOUNTER 2022-10-05 13:01 | Emergency (ER) | payer MEDICARE ==
[2022-10-05] VITALS (10 sets, daily range): BP systolic 97–131; BP diastolic 50–85
[~2022-10-05] VITALS: Ht 190.5 cm; Wt 86.1 kg
[2022-10-05 13:53] LABS: URINE BILIRUBIN - DIPSTICK NEGATIVE (NEGATIVE); URINE BLOOD DIPSTICK NEGATIVE (NEGATIVE); URINE COLOR YELLOW; URINE GLUCOSE - DIPSTICK >=1000 mg/dL (NEGATIVE); URINE KETONE NEGATIVE (NEGATIVE); URINE LEUK ESTERASE NEGATIVE (NEGATIVE); URINE PROTEIN - DIPSTICK NEGATIVE (NEG-TRACE); URINE SPECIFIC GRAVITY <=1.005; URINE UROBILINOGEN - DIPSTICK 0.2 E.U./dL (0.2)
[2022-10-05 13:57] LABS: URINE NITRITE - DIPSTICK NEGATIVE (Negative)
[2022-10-05 14:01] LABS: BASO% 0.3 % (0-3); EOS% 0.4 % (0-8); HEMATOCRIT 33.6 % (39.0-50.0); HEMOGLOBIN 9.4 g/dl (14.0-18.0); IMMATURE GRANULOCYTES 0.3 % (0.0-5.0); LYMPH% 12.4 % (15-41); MEAN CELL VOLUME 69.3 fL CALC (80.0-100.0); MEAN CORPUSCULAR HGB 19.4 pG CALC (26.0-32.0); MONO% 7.6 % (2-13); NEUT# 5.5 thou/uL (1.82-7.42); RED BLOOD COUNT 4.85 mill/uL (4.70-6.10); RED CELL DISTRI WIDTH 18.4 % (11.5-15.5)
[2022-10-05 14:12] LABS: ANION GAP 12 (6-22 (CALC)); BILIRUBIN, TOTAL 0.5 mg/dL (0.2-1.3); BUN 36 mg/dL (8-23); BUN/CREATININE RATIO 57 (12-20 (CALC)); CARBON DIOXIDE 35 mmol/l (22-30); CHLORIDE 89 mmol/l (95-108); CREATININE 0.6 mg/dL (0.7-1.3); GFR FOR AFR.AMER. > 60 ML/MIN (>=60 (CALC)); GFR OTHER RACES > 60 ML/MIN (>=60 (CALC)); POTASSIUM 3.5 mmol/l (3.5-5.1); SGOT/AST 30 u/l (19-48); SODIUM 133 mmol/l (137-146); TOTAL PROTEIN 7.4 g/dL (6.3-8.2)
[2022-10-05 14:13] LABS: ALKALINE PHOSPHATASE 171 u/l (38-126)
== END 2022-10-05 15:12 | disposition home or self-care (01) ==
LOC: ED 13:01
PROVIDERS: Nurse Practitioner
DX: E11.65 Type 2 diabetes mellitus with hyperglycemia (principal); S31.000A Unspecified open wound of lower back and pelvis without penetration into retroperitoneum, initial encounter; I10 Essential (primary) hypertension; X58.XXXA Exposure to other specified factors, initial encounter; Z79.4 Long term (current) use of insulin; Z79.84 Long term (current) use of oral hypoglycemic drugs

== ENCOUNTER 2022-10-09 12:45 | Observation (INO) | payer MEDICARE ==
[2022-10-09] VITALS (14 sets, daily range): BP systolic 88–113; BP diastolic 49–65
[~2022-10-09] VITALS: Ht 190.5 cm; Wt 85.6 kg
[2022-10-09 13:08] LABS: BASO% 0.3 % (0-3); HEMATOCRIT 32.1 % (39.0-50.0); HEMOGLOBIN 8.9 g/dl (14.0-18.0); IMMATURE GRANULOCYTES 0.3 % (0.0-5.0); LYMPH% 24.4 % (15-41); MEAN CELL VOLUME 69.5 fL CALC (80.0-100.0); MEAN CORPUSCULAR HGB 19.3 pG CALC (26.0-32.0); MEAN CORPUSCULAR HGB CONC 27.7 g/dL CAL (32.0-36.0); MONO% 8.4 % (2-13); NEUT# 4.28 thou/uL (1.82-7.42); NEUT% 64.6 % (42-76); RED BLOOD COUNT 4.62 mill/uL (4.70-6.10); RED CELL DISTRI WIDTH 18.6 % (11.5-15.5)
[2022-10-09 13:21] LABS: INTERNATIONAL NORMALIZED RATIO 1.1 RATIO (0.7-1.3); PROTHROMBIN TIME 10.5 SECONDS (9.0-12.5)
[2022-10-09 13:24] LABS: ALBUMIN 3.7 g/dL (3.2-5.0); ALKALINE PHOSPHATASE 154 u/l (38-126); ANION GAP 10 (6-22 (CALC)); BILIRUBIN, TOTAL 0.4 mg/dL (0.2-1.3); BUN 25 mg/dL (8-23); BUN/CREATININE RATIO 41 (12-20 (CALC)); CARBON DIOXIDE 35 mmol/l (22-30); CHLORIDE 89 mmol/l (95-108); CREATININE 0.6 mg/dL (0.7-1.3); GFR FOR AFR.AMER. > 60 ML/MIN (>=60 (CALC)); GFR OTHER RACES > 60 ML/MIN (>=60 (CALC)); POTASSIUM 4.1 mmol/l (3.5-5.1); SGOT/AST 50 u/l (19-48); SODIUM 130 mmol/l (137-146); TOTAL PROTEIN 6.8 g/dL (6.3-8.2)
[2022-10-10 04:41] VITALS: BP 96/54
[2022-10-10 05:39] LABS: URINE BILIRUBIN - DIPSTICK NEGATIVE (NEGATIVE); URINE BLOOD DIPSTICK TRACE-INTACT (NEGATIVE); URINE COLOR YELLOW; URINE GLUCOSE - DIPSTICK >=1000 mg/dL (NEGATIVE); URINE KETONE NEGATIVE (NEGATIVE); URINE PH 5.5 (4.5-8.0); URINE PROTEIN - DIPSTICK NEGATIVE (NEG-TRACE); URINE SPECIFIC GRAVITY 1.015; URINE UROBILINOGEN - DIPSTICK 0.2 E.U./dL (0.2)
[2022-10-10 05:40] LABS: URINE LEUK ESTERASE SMALL (NEGATIVE); URINE NITRITE - DIPSTICK NEGATIVE (Negative)
[2022-10-10 05:44] LABS: HEMATOCRIT 30.1 % (39.0-50.0); HEMOGLOBIN 8.3 g/dl (14.0-18.0); MEAN CELL VOLUME 70.7 fL CALC (80.0-100.0); MEAN CORPUSCULAR HGB 19.5 pG CALC (26.0-32.0); MEAN CORPUSCULAR HGB CONC 27.6 g/dL CAL (32.0-36.0); RED BLOOD COUNT 4.26 mill/uL (4.70-6.10); RED CELL DISTRI WIDTH 18.7 % (11.5-15.5)
[2022-10-10 05:47] LABS: URINE BACTERIA FEW hpf; URINE SQUAMOUS EPITHELIAL CELL FEW EPI/hpf (0-FEW); URINE YEAST MODERATE hpf
[2022-10-10 06:09] LABS: ALBUMIN 3.2 g/dL (3.2-5.0); ALKALINE PHOSPHATASE 137 u/l (38-126); ANION GAP 8 (6-22 (CALC)); BILIRUBIN, TOTAL 0.3 mg/dL (0.2-1.3); BUN 25 mg/dL (8-23); BUN/CREATININE RATIO 42 (12-20 (CALC)); CARBON DIOXIDE 34 mmol/l (22-30); CHLORIDE 93 mmol/l (95-108); CREATININE 0.6 mg/dL (0.7-1.3); GFR FOR AFR.AMER. > 60 ML/MIN (>=60 (CALC)); GFR OTHER RACES > 60 ML/MIN (>=60 (CALC)); MAGNESIUM 2.1 mg/dL (1.6-2.3); POTASSIUM 3.8 mmol/l (3.5-5.1); SGOT/AST 37 u/l (19-48); SODIUM 131 mmol/l (137-146); TOTAL PROTEIN 6.2 g/dL (6.3-8.2)
[2022-10-10 06:17] VITALS: BP 101/52
[2022-10-10 10:05] VITALS: BP 108/58
[2022-10-10 14:25] VITALS: BP 111/79
[2022-10-10] MEDS ORDERED: TOPROL XL25 M1 PO (16:09)
[2022-10-10] MEDS ORDERED: METOLAZONE5 MG PO (16:11)
[2022-10-10 18:38] VITALS: BP 114/58
[2022-10-11 00:18] VITALS: BP 123/61
[2022-10-11 04:11] VITALS: BP 104/50
[2022-10-11 06:22] LABS: HEMOGLOBIN 8.5 g/dl (14.0-18.0); MEAN CELL VOLUME 70.1 fL CALC (80.0-100.0); MEAN CORPUSCULAR HGB 19.2 pG CALC (26.0-32.0); MEAN CORPUSCULAR HGB CONC 27.4 g/dL CAL (32.0-36.0); RED BLOOD COUNT 4.42 mill/uL (4.70-6.10); RED CELL DISTRI WIDTH 18.7 % (11.5-15.5)
[2022-10-11 06:33] VITALS: BP 120/67
[2022-10-11 06:42] LABS: ALBUMIN 3.3 g/dL (3.2-5.0); ALKALINE PHOSPHATASE 125 u/l (38-126); ANION GAP 9 (6-22 (CALC)); BILIRUBIN, TOTAL 0.2 mg/dL (0.2-1.3); BUN 18 mg/dL (8-23); BUN/CREATININE RATIO 39 (12-20 (CALC)); CARBON DIOXIDE 33 mmol/l (22-30); CHLORIDE 94 mmol/l (95-108); CREATININE 0.5 mg/dL (0.7-1.3); GFR FOR AFR.AMER. > 60 ML/MIN (>=60 (CALC)); GFR OTHER RACES > 60 ML/MIN (>=60 (CALC)); POTASSIUM 3.6 mmol/l (3.5-5.1); SGOT/AST 32 u/l (19-48); SODIUM 132 mmol/l (137-146); TOTAL PROTEIN 6.2 g/dL (6.3-8.2)
[2022-10-11 10:15] VITALS: BP 112/59
== END 2022-10-11 15:37 | disposition home health service (06) ==
LOC: ED 12:45 → ED-I 16:00 → ED 16:05 → MS2 16:06
PROVIDERS: Family Medicine; ADMIT Internal Medicine; ATTEND Internal Medicine
DX: G45.9 Transient cerebral ischemic attack, unspecified (principal); I10 Essential (primary) hypertension; E11.51 Type 2 diabetes mellitus with diabetic peripheral angiopathy without gangrene; E11.65 Type 2 diabetes mellitus with hyperglycemia; E11.621 Type 2 diabetes mellitus with foot ulcer; L97.422 Non-pressure chronic ulcer of left heel and midfoot with fat layer exposed; I48.20 Chronic atrial fibrillation, unspecified; I25.10 Atherosclerotic heart disease of native coronary artery without angina pectoris; E78.5 Hyperlipidemia, unspecified; R23.8 Other skin changes; R60.0 Localized edema; I87.2 Venous insufficiency (chronic) (peripheral); D64.9 Anemia, unspecified; F41.9 Anxiety disorder, unspecified; N40.0 Benign prostatic hyperplasia without lower urinary tract symptoms; Z79.84 Long term (current) use of oral hypoglycemic drugs; Z79.4 Long term (current) use of insulin; Z79.891 Long term (current) use of opiate analgesic; Z79.01 Long term (current) use of anticoagulants; Z98.84 Bariatric surgery status; Z87.891 Personal history of nicotine dependence
CPT/HCPCS: Q9967

== ENCOUNTER 2022-12-15 11:23 | Inpatient (IN) | payer MEDICARE ==
[~2022-12-15] VITALS: Ht 190.5 cm; Wt 82.6 kg
[2022-12-15] VITALS (38 sets, daily range): BP systolic 89–118; BP diastolic 39–82
[~2022-12-15 11:23] MED LIST changes: +TOPROL XL25 M1 PO
[2022-12-15 11:48] LABS: URINE BILIRUBIN - DIPSTICK NEGATIVE (NEGATIVE); URINE BLOOD DIPSTICK NEGATIVE (NEGATIVE); URINE COLOR YELLOW; URINE GLUCOSE - DIPSTICK >=1000 mg/dL (NEGATIVE); URINE KETONE NEGATIVE (NEGATIVE); URINE PROTEIN - DIPSTICK NEGATIVE (NEG-TRACE); URINE SPECIFIC GRAVITY <=1.005; URINE UROBILINOGEN - DIPSTICK 0.2 E.U./dL (0.2)
[2022-12-15 11:52] LABS: URINE LEUK ESTERASE SMALL (NEGATIVE); URINE NITRITE - DIPSTICK NEGATIVE (Negative)
[2022-12-15 11:54] LABS: BASO% 0.1 % (0-3); EOS% 0.3 % (0-8); HEMOGLOBIN 12.4 g/dl (14.0-18.0); IMMATURE GRANULOCYTES 0.6 % (0.0-5.0); LYMPH% 5.2 % (15-41); MEAN CELL VOLUME 75.4 fL CALC (80.0-100.0); MEAN CORPUSCULAR HGB 22.3 pG CALC (26.0-32.0); MEAN CORPUSCULAR HGB CONC 29.5 g/dL CAL (32.0-36.0); MONO% 3.8 % (2-13); NEUT# 12.18 thou/uL (1.82-7.42); RED BLOOD COUNT 5.57 mill/uL (4.70-6.10); RED CELL DISTRI WIDTH 27.1 % (11.5-15.5)
[2022-12-15 11:57] LABS: URINE RBC 0-2 RBC/hpf (0-5); URINE SQUAMOUS EPITHELIAL CELL FEW EPI/hpf (0-FEW)
[2022-12-15 11:58] LABS: URINE YEAST MODERATE hpf
[2022-12-15 12:04] LABS: ALKALINE PHOSPHATASE 129 u/l (38-126); BUN 33 mg/dL (8-23); BUN/CREATININE RATIO 48 (12-20 (CALC)); CREATININE 0.7 mg/dL (0.7-1.3); GFR FOR AFR.AMER. > 60 ML/MIN (>=60 (CALC)); GFR OTHER RACES > 60 ML/MIN (>=60 (CALC)); LIPASE 12 u/l (23-300); SGOT/AST 34 u/l (19-48); SODIUM 131 mmol/l (137-146)
[2022-12-15 12:10] LABS: CARBON DIOXIDE 39 mmol/l (22-30)
[2022-12-15 12:11] LABS: ALBUMIN 4.1 g/dL (3.2-5.0); ANION GAP 15 (6-22 (CALC)); BILIRUBIN, TOTAL 0.8 mg/dL (0.2-1.3); CHLORIDE 80 mmol/l (95-108); POTASSIUM 2.8 mmol/l (3.5-5.1); TOTAL PROTEIN 7.8 g/dL (6.3-8.2)
[2022-12-16] VITALS (35 sets, daily range): BP systolic 81–124; BP diastolic 34–71
[2022-12-16 05:04] LABS: BASO% 0.2 % (0-3); EOS% 1.1 % (0-8); HEMATOCRIT 36.6 % (39.0-50.0); HEMOGLOBIN 10.7 g/dl (14.0-18.0); IMMATURE GRANULOCYTES 0.2 % (0.0-5.0); MEAN CELL VOLUME 77.2 fL CALC (80.0-100.0); MEAN CORPUSCULAR HGB 22.6 pG CALC (26.0-32.0); MEAN CORPUSCULAR HGB CONC 29.2 g/dL CAL (32.0-36.0); NEUT# 10.62 thou/uL (1.82-7.42); NEUT% 86.5 % (42-76); RED BLOOD COUNT 4.74 mill/uL (4.70-6.10); RED CELL DISTRI WIDTH 27.2 % (11.5-15.5)
[2022-12-16 05:15] LABS: ALKALINE PHOSPHATASE 127 u/l (38-126); ANION GAP 7 (6-22 (CALC)); BILIRUBIN, TOTAL 0.6 mg/dL (0.2-1.3); BUN 27 mg/dL (8-23); BUN/CREATININE RATIO 56 (12-20 (CALC)); CARBON DIOXIDE 39 mmol/l (22-30); CHLORIDE 87 mmol/l (95-108); CREATININE 0.5 mg/dL (0.7-1.3); GFR FOR AFR.AMER. > 60 ML/MIN (>=60 (CALC)); GFR OTHER RACES > 60 ML/MIN (>=60 (CALC)); MAGNESIUM 2.4 mg/dL (1.6-2.3); POTASSIUM 3.2 mmol/l (3.5-5.1); SGOT/AST 24 u/l (19-48); SODIUM 129 mmol/l (137-146)
[2022-12-16 05:18] LABS: ALBUMIN 3.1 g/dL (3.2-5.0)
[2022-12-17 04:44] VITALS: BP 112/66
[2022-12-17 05:34] LABS: BASO% 0.1 % (0-3); EOS% 2.5 % (0-8); HEMATOCRIT 33.3 % (39.0-50.0); IMMATURE GRANULOCYTES 0.1 % (0.0-5.0); LYMPH% 18.7 % (15-41); MEAN CELL VOLUME 76.7 fL CALC (80.0-100.0); MONO% 2.7 % (2-13); NEUT# 5.99 thou/uL (1.82-7.42); NEUT% 75.9 % (42-76); RED BLOOD COUNT 4.34 mill/uL (4.70-6.10); RED CELL DISTRI WIDTH 26.8 % (11.5-15.5)
[2022-12-17 05:37] LABS: ALBUMIN 2.9 g/dL (3.2-5.0); ALKALINE PHOSPHATASE 106 u/l (38-126); ANION GAP 8 (6-22 (CALC)); BILIRUBIN, TOTAL 0.4 mg/dL (0.2-1.3); BUN 13 mg/dL (8-23); BUN/CREATININE RATIO 38 (12-20 (CALC)); CARBON DIOXIDE 37 mmol/l (22-30); CHLORIDE 88 mmol/l (95-108); CREATININE 0.3 mg/dL (0.7-1.3); GFR FOR AFR.AMER. > 60 ML/MIN (>=60 (CALC)); GFR OTHER RACES > 60 ML/MIN (>=60 (CALC)); POTASSIUM 3.5 mmol/l (3.5-5.1); SGOT/AST 21 u/l (19-48); SODIUM 129 mmol/l (137-146); TOTAL PROTEIN 5.6 g/dL (6.3-8.2)
[2022-12-17 06:40] VITALS: BP 115/62
[2022-12-17 11:29] LABS: URINE BILIRUBIN - DIPSTICK NEGATIVE (NEGATIVE); URINE BLOOD DIPSTICK SMALL (NEGATIVE); URINE CLARITY SL CLOUDY; URINE COLOR YELLOW; URINE GLUCOSE - DIPSTICK >=1000 mg/dL (NEGATIVE); URINE KETONE NEGATIVE (NEGATIVE); URINE LEUK ESTERASE MODERATE (Negative); URINE NITRITE - DIPSTICK NEGATIVE (Negative); URINE PH 6.5 (4.5-8.0); URINE PROTEIN - DIPSTICK NEGATIVE (NEG-TRACE); URINE SPECIFIC GRAVITY <=1.005; URINE UROBILINOGEN - DIPSTICK 0.2 E.U./dL (0.2)
[2022-12-17 11:32] VITALS: BP 113/57
[2022-12-17 11:58] LABS: URINE WBC 50-100 WBC/hpf (0-5); URINE YEAST FEW hpf
[2022-12-17 18:48] VITALS: BP 126/65
[2022-12-17 19:00] VITALS: BP 126/65
[2022-12-18 00:46] VITALS: BP 120/63
[2022-12-18 00:49] VITALS: BP 120/63
[2022-12-18 05:31] VITALS: BP 125/67
[2022-12-18 05:33] VITALS: BP 125/67
[2022-12-18 07:08] VITALS: BP 122/72
[2022-12-18 08:50] LABS: BASO% 0.5 % (0-3); EOS% 2.9 % (0-8); HEMATOCRIT 34.1 % (39.0-50.0); IMMATURE GRANULOCYTES 0.3 % (0.0-5.0); LYMPH% 19.4 % (15-41); MEAN CELL VOLUME 77.1 fL CALC (80.0-100.0); MEAN CORPUSCULAR HGB 22.6 pG CALC (26.0-32.0); MEAN CORPUSCULAR HGB CONC 29.3 g/dL CAL (32.0-36.0); MONO% 3.7 % (2-13); NEUT# 4.34 thou/uL (1.82-7.42); NEUT% 73.2 % (42-76); RED BLOOD COUNT 4.42 mill/uL (4.70-6.10)
[2022-12-18 09:21] VITALS: BP 122/72
[2022-12-18 09:23] LABS: ALBUMIN 2.8 g/dL (3.2-5.0); ALKALINE PHOSPHATASE 107 u/l (38-126); ANION GAP 10 (6-22 (CALC)); BILIRUBIN, TOTAL 0.5 mg/dL (0.2-1.3); BUN 9 mg/dL (8-23); BUN/CREATININE RATIO 28 (12-20 (CALC)); CARBON DIOXIDE 32 mmol/l (22-30); CHLORIDE 95 mmol/l (95-108); CREATININE 0.3 mg/dL (0.7-1.3); GFR FOR AFR.AMER. > 60 ML/MIN (>=60 (CALC)); GFR OTHER RACES > 60 ML/MIN (>=60 (CALC)); POTASSIUM 4.3 mmol/l (3.5-5.1); SGOT/AST 18 u/l (19-48); SODIUM 133 mmol/l (137-146); TOTAL PROTEIN 5.6 g/dL (6.3-8.2)
[2022-12-18] MEDS ORDERED: OMNICEF300 MG PO (09:27)
[2022-12-18 11:18] LABS: URINE BILIRUBIN - DIPSTICK NEGATIVE (NEGATIVE); URINE BLOOD DIPSTICK TRACE-INTACT (NEGATIVE); URINE COLOR YELLOW; URINE GLUCOSE - DIPSTICK >=1000 mg/dL (NEGATIVE); URINE KETONE NEGATIVE (NEGATIVE); URINE LEUK ESTERASE SMALL (Negative); URINE NITRITE - DIPSTICK NEGATIVE (Negative); URINE PROTEIN - DIPSTICK NEGATIVE (NEG-TRACE); URINE UROBILINOGEN - DIPSTICK 0.2 E.U./dL (0.2)
[2022-12-18 11:19] LABS: URINE CLARITY SL CLOUDY
[2022-12-18 11:26] LABS: URINE YEAST FEW hpf
[2022-12-18 11:29] LABS: URINE SQUAMOUS EPITHELIAL CELL FEW EPI/hpf (0-FEW)
== END 2022-12-18 13:32 | DRG 871 ==
LOC: ED 11:23 → ED-I 13:37 → MS2 12-16 15:50
PROVIDERS: Family Medicine; Internal Medicine; Nurse Practitioner Family; ADMIT Internal Medicine; ATTEND Internal Medicine
DX: A41.9 Sepsis, unspecified organism (principal); G93.41 Metabolic encephalopathy; J18.9 Pneumonia, unspecified organism; J96.00 Acute respiratory failure, unspecified whether with hypoxia or hypercapnia; N39.0 Urinary tract infection, site not specified; Z16.24 Resistance to multiple antibiotics; B96.89 Other specified bacterial agents as the cause of diseases classified elsewhere; R65.20 Severe sepsis without septic shock; E11.9 Type 2 diabetes mellitus without complications; I48.91 Unspecified atrial fibrillation; E78.5 Hyperlipidemia, unspecified; Z79.4 Long term (current) use of insulin; Z98.84 Bariatric surgery status; Z96.641 Presence of right artificial hip joint; Z87.891 Personal history of nicotine dependence; Z20.822 Contact with and (suspected) exposure to COVID-19

== ENCOUNTER 2023-01-09 20:12 | Emergency (ER) | payer MEDICARE ==
[2023-01-09] VITALS (9 sets, daily range): BP systolic 95–113; BP diastolic 63–78
[~2023-01-09] VITALS: Ht 190.5 cm; Wt 85.0 kg
[~2023-01-09 20:12] MED LIST changes: +OMNICEF300 MG PO
[2023-01-09 21:17] LABS: BASO% 0.2 % (0-3); EOS% 0.9 % (0-8); HEMATOCRIT 38.4 % (39.0-50.0); HEMOGLOBIN 11.1 g/dl (14.0-18.0); IMMATURE GRANULOCYTES 0.5 % (0.0-5.0); LYMPH% 20.3 % (15-41); MEAN CELL VOLUME 77.1 fL CALC (80.0-100.0); MEAN CORPUSCULAR HGB 22.3 pG CALC (26.0-32.0); MEAN CORPUSCULAR HGB CONC 28.9 g/dL CAL (32.0-36.0); MONO% 3.4 % (2-13); NEUT# 6.59 thou/uL (1.82-7.42); NEUT% 74.7 % (42-76); RED BLOOD COUNT 4.98 mill/uL (4.70-6.10); RED CELL DISTRI WIDTH 24.3 % (11.5-15.5)
[2023-01-09 21:26] LABS: ALKALINE PHOSPHATASE 129 u/l (38-126); ANION GAP 12 (6-22 (CALC)); BILIRUBIN, TOTAL 0.4 mg/dL (0.2-1.3); CARBON DIOXIDE 35 mmol/l (22-30); CHLORIDE 92 mmol/l (95-108); CREATININE 0.8 mg/dL (0.7-1.3); GFR FOR AFR.AMER. > 60 ML/MIN (>=60 (CALC)); GFR OTHER RACES > 60 ML/MIN (>=60 (CALC)); POTASSIUM 3.9 mmol/l (3.5-5.1); SGOT/AST 23 u/l (19-48); SODIUM 135 mmol/l (137-146)
[2023-01-09 21:33] LABS: ALBUMIN 3.6 g/dL (3.2-5.0); BUN 35 mg/dL (8-23); BUN/CREATININE RATIO 44 (12-20 (CALC)); TOTAL PROTEIN 7.2 g/dL (6.3-8.2)
== END 2023-01-09 23:50 | disposition home or self-care (01) ==
LOC: ED 20:12
PROVIDERS: Emergency Medicine
DX: I10 Essential (primary) hypertension (principal); E86.0 Dehydration; E11.9 Type 2 diabetes mellitus without complications; I48.91 Unspecified atrial fibrillation; K21.9 Gastro-esophageal reflux disease without esophagitis; Z98.84 Bariatric surgery status; Z79.4 Long term (current) use of insulin

== ENCOUNTER 2023-02-20 13:55 | Observation (INO) | payer MEDICARE ==
[~2023-02-20] VITALS: Ht 190.5 cm; Wt 86.2 kg
[2023-02-20] VITALS (28 sets, daily range): BP systolic 63–153; BP diastolic 40–85
[~2023-02-20 13:55] MED LIST changes: -CALCIUM600 M1 PO; -CINNAMON500 MG PO; -ELIQUIS5 MG PO; -KRILL OIL300 MG PO; -LANTUS100 UNIT SC; -MAGNESIUM400 MG PO; -MULTIVITAMI1 PO; -PREGABALIN75 MG PO; -PROSCAR5 MG PO; -TOPROL XL25 M1 PO; -VOLTAREN1%GEL TOP
--- NOTE | 2023-02-20 13:55 | NUR ---
PT TO ROOM 14 VIA EMS STRETCHER, CALL LIGHT IN REACH, PROVIDER NOTIFIED.
--- NOTE | 2023-02-20 14:00 | NUR ---
VITALS ASSESSED. PROVIDER NOTIFIED OF ARRIVAL
[2023-02-20 14:47] LABS: BASO% 0.4 % (0-3); EOS% 1.6 % (0-8); HEMATOCRIT 36.9 % (39.0-50.0); HEMOGLOBIN 11.4 g/dl (14.0-18.0); IMMATURE GRANULOCYTES 0.2 % (0.0-5.0); LYMPH% 34.1 % (15-41); MEAN CELL VOLUME 80.2 fL CALC (80.0-100.0); MEAN CORPUSCULAR HGB 24.8 pG CALC (26.0-32.0); MEAN CORPUSCULAR HGB CONC 30.9 g/dL CAL (32.0-36.0); MONO% 5.9 % (2-13); NEUT# 2.96 thou/uL (1.82-7.42); NEUT% 57.8 % (42-76); RED BLOOD COUNT 4.6 mill/uL (4.70-6.10); RED CELL DISTRI WIDTH 20.5 % (11.5-15.5)
[2023-02-20 14:49] LABS: URINE BILIRUBIN - DIPSTICK Negative (NEGATIVE); URINE BLOOD DIPSTICK Negative (NEGATIVE); URINE COLOR Yellow; URINE GLUCOSE - DIPSTICK >=1000 mg/dL (NEGATIVE); URINE KETONE Negative (NEGATIVE); URINE LEUK ESTERASE Negative (NEGATIVE); URINE NITRITE - DIPSTICK Negative (Negative); URINE PROTEIN - DIPSTICK Negative (NEG-TRACE); URINE SPECIFIC GRAVITY <=1.005; URINE UROBILINOGEN - DIPSTICK 0.2 E.U./dL (0.2)
[2023-02-20 15:00] LABS: ALBUMIN 3.9 g/dL (3.2-5.0); ALKALINE PHOSPHATASE 76 u/l (38-126); ANION GAP 14 (6-22 (CALC)); BILIRUBIN, TOTAL 0.4 mg/dL (0.2-1.3); BUN 34 mg/dL (8-23); BUN/CREATININE RATIO 58 (12-20 (CALC)); CARBON DIOXIDE 31 mmol/l (22-30); CHLORIDE 91 mmol/l (95-108); CREATININE 0.6 mg/dL (0.7-1.3); GFR FOR AFR.AMER. > 60 ML/MIN (>=60 (CALC)); GFR OTHER RACES > 60 ML/MIN (>=60 (CALC)); POTASSIUM 4.1 mmol/l (3.5-5.1); SGOT/AST 34 u/l (19-48); SODIUM 132 mmol/l (137-146); TOTAL PROTEIN 7.2 g/dL (6.3-8.2)
--- NOTE | 2023-02-20 15:00 | NUR ---
PT GIVEN URINAL. PT VERBALIZED NO NEEDS AT THIS TIME.
[2023-02-20 15:01] LABS: INTERNATIONAL NORMALIZED RATIO 1.1 RATIO (0.7-1.3); PROTHROMBIN TIME 10.2 SECONDS (9.0-12.5)
--- NOTE | 2023-02-20 18:12 | NUR ---
PENDING TRANSFER. PT VERBALIZED NO NEEDS AT THIS TIME.
--- NOTE | 2023-02-20 19:30 | NUR ---
CALLED [facility] TO GIVE REPORT; WAITING FOR A CALL BACK FROM FLOOR TO GIVE REPORT. PT VSS AND NAD; KNOWS HOW TO USE HIS CALL LIGHT VERY WELL.
--- NOTE | 2023-02-20 20:00 | NUR ---
PT REMAINS RESTING IN BED; URINAL EMPTIED 3 SINCE 1899. VSS AND NAD AT BEDSIDE.
--- NOTE | 2023-02-20 20:30 | NUR ---
REPORT CAllED TO GIGI ON MS; PT ALERT AND ORIENTED BUT FORGETFUL WITH CERTAIN THINGS. UPON ARRIVING TO [facility]; WE FOUND PT SATURATED IN URINE. PT AGAIN IS ALERT AND ORIENTED, I ASKED PT WHY HE DIDNT LET ME KNOW I WOULD HAVE CLEANED HIM UP; HELPED MS CHILDR[employer]'S ENTERTAIN[employer] AND NURSES CLEAN PT; MALE [place] APPLIED TO PT. VSS AND PT NAD UPON TX. PT TX VIA STRETCHER.
[2023-02-20] MEDS ORDERED: PROSCAR5 MG PO (22:32)
[2023-02-20] MEDS ORDERED: ELIQUIS5 MG PO (22:32)
[2023-02-20] MEDS ORDERED: MULTIVITAMI1 PO (22:32)
[2023-02-20] MEDS ORDERED: CALCIUM600 M1 PO (22:32)
[2023-02-20] MEDS ORDERED: KRILL OIL300 MG PO (22:33)
[2023-02-20] MEDS ORDERED: MAGNESIUM400 MG PO (22:33)
[2023-02-20] MEDS ORDERED: PREGABALIN75 MG PO (22:34)
[2023-02-20] MEDS ORDERED: VOLTAREN1%GEL TOP (22:34)
[2023-02-20] MEDS ORDERED: XANAX0.25 MG PO (22:34)
[2023-02-20] MEDS ORDERED: TOPROL XL25 M1 PO (22:34)
[2023-02-20] MEDS ORDERED: LANTUS100 UNIT SC (22:34)
[2023-02-20] MEDS ORDERED: METOLAZONE5 MG PO (22:35)
[2023-02-20] MEDS ORDERED: LASIX 40 MG TAB40 MG PO (22:35)
[2023-02-20] MEDS ORDERED: CINNAMON500 MG PO (22:36)
[2023-02-21 00:27] VITALS: BP 132/66
[2023-02-21 04:05] VITALS: BP 112/58
[2023-02-21 07:19] VITALS: BP 110/55
--- NOTE | 2023-02-21 07:31 | NUR ---
pt glucose was 98 @0730
[2023-02-21 08:22] LABS: HEMATOCRIT 37.5 % (39.0-50.0); HEMOGLOBIN 11.7 g/dl (14.0-18.0); MEAN CELL VOLUME 79.3 fL CALC (80.0-100.0); MEAN CORPUSCULAR HGB 24.7 pG CALC (26.0-32.0); MEAN CORPUSCULAR HGB CONC 31.2 g/dL CAL (32.0-36.0); RED BLOOD COUNT 4.73 mill/uL (4.70-6.10); RED CELL DISTRI WIDTH 20.2 % (11.5-15.5)
[2023-02-21 08:35] LABS: ANION GAP 9 (6-22 (CALC)); BUN 24 mg/dL (8-23); BUN/CREATININE RATIO 57 (12-20 (CALC)); CALCULATED LDLCHOLESTEROL 62 mg/dL (62-129 (CALC)); CARBON DIOXIDE 32 mmol/l (22-30); CHLORIDE 97 mmol/l (95-108); CHOLESTEROL HDL RATIO 2.8 (<4.4 (CALC)); CREATININE 0.4 mg/dL (0.7-1.3); GFR FOR AFR.AMER. > 60 ML/MIN (>=60 (CALC)); GFR OTHER RACES > 60 ML/MIN (>=60 (CALC)); HDL CHOLESTEROL 43 mg/dL (39.0-59.0); MAGNESIUM 1.8 mg/dL (1.6-2.3); POTASSIUM 4.2 mmol/l (3.5-5.1); SODIUM 134 mmol/l (137-146); TOTAL CHOLESTEROL 122 mg/dl (0-199); TOTAL TRIGLYCERIDES 81 mg/dl (0-149); VLDL CHOLESTROL 16 mg/dl (0-38 (CALC))
--- NOTE | 2023-02-21 10:00 | NUR ---
PATIENT REFUSING AT TIMES ASSISTANCE TO AMBULATE. PATIENT EDUCATED ON WHY ITS IMPORTANTE TO ASK FOR HELP TO PREVENT HELP. PATIENT STATED UNDERSTANDING FOR USING THE CALL LIGHT BEFORE GETTING UP OUT OF BED. BED ALARM STILL ON FOR SAFETY. PLAN OF CARE ONGOING. DION PRICE BM EARLIER TODAY.
[2023-02-21 10:50] VITALS: BP 126/65
--- NOTE | 2023-02-21 11:08 | NUR ---
pt glucose was 198 @1100
--- NOTE | 2023-02-21 16:32 | NUR ---
Discharge instructions given. Patient verbalizes understanding of same. Discharged in stable condition via Wheelchair to Home with spouse. All belongings sent with pt.
== END 2023-02-21 16:15 | disposition home health service (06) ==
LOC: ED 13:55 → MS2 15:59
PROVIDERS: Nurse Practitioner; ADMIT Student in an Organized Health Care Education/Training Program; ATTEND Student in an Organized Health Care Education/Training Program
DX: R00.1 Bradycardia, unspecified (principal); I11.0 Hypertensive heart disease with heart failure; I50.9 Heart failure, unspecified; E11.9 Type 2 diabetes mellitus without complications; I25.10 Atherosclerotic heart disease of native coronary artery without angina pectoris; I48.20 Chronic atrial fibrillation, unspecified; E78.5 Hyperlipidemia, unspecified; K21.9 Gastro-esophageal reflux disease without esophagitis; N40.0 Benign prostatic hyperplasia without lower urinary tract symptoms; Z98.84 Bariatric surgery status; Z91.81 History of falling; Z87.891 Personal history of nicotine dependence; Z79.4 Long term (current) use of insulin; Z79.01 Long term (current) use of anticoagulants
CPT/HCPCS: J1650

== ENCOUNTER 2024-06-12 19:40 | Emergency (ER) | payer MEDICARE ==
[~2024-06-12] VITALS: Ht 190.5 cm; Wt 109.0 kg
[2024-06-12] VITALS (11 sets, daily range): BP systolic 121–143; BP diastolic 60–104
[~2024-06-12 19:40] MED LIST changes: +BAYER CHEWABLE81 MG PO; +CALCIUM600 M1 PO; +CINNAMON500 MG PO; +D3; +ELIQUIS5 MG PO; +FOLIC ACID1 M1 PO; +GABAPENTIN100 MG PO; +HUMALOG100 UNIT; +IRON PO; +KRILL OIL300 MG PO; +LANTUS100 UNIT SC; +LEVAQUIN750 M1 PO; +LISINOPRIL2.5 MG PO; +MAGNESIUM OXID400 M4 PO; +MAGNESIUM400 MG PO; +MELOXICAM15 MG PO; +MULTIVITAMI1 PO; +PLAVIX75 MG PO; +PREGABALIN75 MG PO; +PROSCAR5 MG PO; +TAMSULOSIN0.4 MG PO; +TOPROL XL25 M1 PO; +TRAMADOL HCL50 MG PO; +TRAMADOL HYDROC50 M1 PO; +TRAZODONE50 MG PO; +VOLTAREN1%GEL TOP; +XANAX0.5 MG PO
[2024-06-12] MEDS ORDERED: SODIUM CHLORIDE 0.9% 1,000 ML IV ONE (19:55)
[2024-06-12 20:27] LABS: BASO% 0.5 % (0-3); EOS% 3.7 % (0-8); HEMATOCRIT 35.9 % (39.0-50.0); HEMOGLOBIN 10.4 g/dl (14.0-18.0); IMMATURE GRANULOCYTES 0.3 % (0.0-5.0); MEAN CELL VOLUME 81.4 fL CALC (80.0-100.0); MEAN CORPUSCULAR HGB 23.6 pG CALC (26.0-32.0); MONO% 5.1 % (2-13); NEUT# 4.07 thou/uL (1.82-7.42); NEUT% 69.4 % (42-76); RED BLOOD COUNT 4.41 mill/uL (4.70-6.10)
[2024-06-12 20:48] LABS: ALKALINE PHOSPHATASE 68 u/l (38-126); BILIRUBIN, TOTAL 0.4 mg/dL (0.2-1.3); BUN 17 mg/dL (8-23); BUN/CREATININE RATIO 26 (12-20 (CALC)); CARBON DIOXIDE 27 mmol/l (22-30); CHLORIDE 95 mmol/l (95-108); CREATININE 0.6 mg/dL (0.7-1.3); ESTIMATED GFR 100 ML/MIN (>=90 (CALC)); SGOT/AST 27 u/l (19-48); SODIUM 132 mmol/l (137-146); TOTAL PROTEIN 6.8 g/dL (6.3-8.2)
[2024-06-12 20:52] LABS: ANION GAP 14 (6-22 (CALC)); C-REACTIVE PROTEIN < 0.5 mg/dL (0-0.9); POTASSIUM 4.3 mmol/l (3.5-5.1)
[2024-06-12] MEDS ORDERED: LORazepam 2 MG/ML IV ONE (22:00)
[2024-06-12 23:03] LABS: URINE BILIRUBIN - DIPSTICK Negative (NEGATIVE); URINE BLOOD DIPSTICK Small (NEGATIVE); URINE GLUCOSE - DIPSTICK Negative (NEGATIVE); URINE KETONE Negative (NEGATIVE); URINE PH 7.5 (4.5-8.0); URINE PROTEIN - DIPSTICK Trace mg/dL (NEG-TRACE); URINE SPECIFIC GRAVITY 1.015
[2024-06-12 23:04] LABS: URINE COLOR Yellow; URINE LEUK ESTERASE Moderate (NEGATIVE); URINE NITRITE - DIPSTICK Positive (Negative)
[2024-06-12 23:07] LABS: URINE SQUAMOUS EPITHELIAL CELL RARE EPI/hpf (0-FEW)
[2024-06-12 23:08] LABS: URINE BACTERIA MANY hpf
[2024-06-12] MEDS ORDERED: MACROBID100 M1 PO (23:37)
[2024-06-13] VITALS: BP 143/79
[2024-06-13 00:18] VITALS: BP 173/90
[2024-06-13 00:31] VITALS: BP 139/79
[2024-06-13 00:45] VITALS: BP 143/89
[2024-06-13 01:01] VITALS: BP 160/91
[2024-06-13 01:17] VITALS: BP 160/91
== END 2024-06-13 01:17 | disposition home or self-care (01) ==
LOC: ED 19:40
PROVIDERS: Family Medicine
DX: N39.0 Urinary tract infection, site not specified (principal); B96.20 Unspecified Escherichia coli [E. coli] as the cause of diseases classified elsewhere; Z16.12 Extended spectrum beta lactamase (ESBL) resistance; I10 Essential (primary) hypertension; E11.9 Type 2 diabetes mellitus without complications; I48.91 Unspecified atrial fibrillation; L97.909 Non-pressure chronic ulcer of unspecified part of unspecified lower leg with unspecified severity; Z95.818 Presence of other cardiac implants and grafts; Z87.891 Personal history of nicotine dependence; Z98.84 Bariatric surgery status
CPT/HCPCS: J0696; J2060

== ENCOUNTER 2024-07-03 08:13 | Emergency (ER) | payer MEDICARE ==
[~2024-07-03] VITALS: Ht 190.5 cm; Wt 98.0 kg
[~2024-07-03 08:13] MED LIST changes: +MACROBID100 M1 PO
[2024-07-03 08:25] VITALS: BP 140/81
[2024-07-03 08:31] VITALS: BP 120/73
[2024-07-03 08:46] VITALS: BP 129/72
[2024-07-03 09:01] VITALS: BP 119/66
[2024-07-03 09:16] VITALS: BP 124/71
[2024-07-03 09:37] VITALS: BP 124/71
== END 2024-07-03 09:41 | disposition home or self-care (01) ==
LOC: ED 08:13
DX: L76.21 Postprocedural hemorrhage of skin and subcutaneous tissue following a dermatologic procedure (principal); E11.621 Type 2 diabetes mellitus with foot ulcer; L97.519 Non-pressure chronic ulcer of other part of right foot with unspecified severity; E11.40 Type 2 diabetes mellitus with diabetic neuropathy, unspecified; I10 Essential (primary) hypertension; I48.91 Unspecified atrial fibrillation; Z79.84 Long term (current) use of oral hypoglycemic drugs; Z95.818 Presence of other cardiac implants and grafts; Z98.84 Bariatric surgery status; Z87.891 Personal history of nicotine dependence; Z79.01 Long term (current) use of anticoagulants; R29.6 Repeated falls; D50.9 Iron deficiency anemia, unspecified; G47.30 Sleep apnea, unspecified